=== PATIENT | male | born 1975 | race Caucasian/White ===

== ENCOUNTER 2021-03-28 11:29 | Inpatient (IN) ==
--- NOTE | 2021-03-28 14:29 | Emergency Department Note ---
HPI General Chief complaint: Extremity Injury, Upper Stated complaint: right shoulder pain, ulcer on left foot Time Seen by Provider: 03/28/21 11:47 Source: patient Mode of arrival: ambulatory Limitations: no limitations History of Present Illness HPI Narrative: Mr. Romano is an unfortunate 45-year-old poorly controlled diabetic patient with deep ulceration of the left heel and acute left shoulder pain without injury. He was seen at the [facility] yesterday where they had concerns for septic OA of the shoulder and osteomyelitis of the left foot. Unfortunately, he eloped from their ER and did not receive further work-up. He presents today complaining of the same severe left shoulder pain. Pain is aggravated by movement. The patient does report a history of gout, but denies a history of gout in his shoul bebo. Related Data Home Medications Medication Instructions Recorded Confirmed clobetasol 0.05 % topical ointment 1 applic TOPICAL BID 01/12/19 03/21/21 colchicine 0.6 mg tablet (Colcrys) 0.6 mg PO QDAY 01/12/19 03/21/21 omeprazole 20 mg tablet,delayed 20 mg PO QDAY 01/12/19 03/21/21 release thiamine HCl (vitamin B1) 100 mg 100 mg PO QDAY 01/12/19 03/21/21 tablet Previous Rx's Medication Instructions Recorded allopurinol 100 mg tablet 200 mg PO QDAY #60 tab 08/05/20 metformin 500 mg tablet,extended See Rx Instructions .ROUTE 10/31/20 release 24 hr .COMPLEX #60 tablet hydrochlorothiazide 25 mg tablet See Rx Instructions .ROUTE 12/27/20 .COMPLEX #90 tab lisinopril 20 mg tablet See Rx Instructions .ROUTE 01/09/21 .COMPLEX #180 tab zolpidem 10 mg tablet (Ambien) 10 mg PO QHS PRN #90 tab 02/21/21 buprenorphine HCl 8 mg sublingual 8 mg SUBLINGUAL QID #120 tab 03/06/21 tablet etodolac 400 mg tablet 400 mg PO BID 14 Days #28 tab 03/21/21 methocarbamol 750 mg tablet 750 mg PO QID 14 Days #56 tab 03/21/21 Allergies Allergy/AdvReac Type Severity Reaction Status Date / Time No Known Drug Allergies Allergy Verified 03/28/21 11:33 Review of Systems ROS ROS Narrative: Narrative: All systems ED: reviewed and negative except as stated. PFSH Narrative Patient History Narrative: Narrative: Medical/Surgical/Family History All Active Problems (Updated 03/28/21 @ 17:51 by Debi Ochoa PA-C) Diabetic foot ulcer (Acute) Osteomyelitis (Acute) Right shoulder pain (Acute) Insomnia (Chronic) Nausea & vomiting (Acute) Diabetes mellitus (Chronic) Fatigue (Acute) Staph infection (Acute) Cellulitis (Acute) Encounter for monitoring of patient compliance in drug treatment program (Acute) DM w/o complication type II (Acute) Hypertension (Chronic) Gout (Chronic) Opioid dependence in remission (Chronic) Family history unremarkable (Acute) Medical History (Updated 03/28/21 @ 17:51 by Debi Ochoa PA-C) Anxiety Chronic gout Dental caries, unspecified Diabetes mellitus Family history unremarkable Fatigue Hypertension Insomnia Low back pain syndrome Nausea & vomiting Opioid dependence, in remission Opioid dependence, uncomplicated Psoriatic arthritis Situational anxiety Staph infection Type 2 diabetes mellitus without complications Surgical History No history of previous surgery Family History Other No pertinent family history Social History Smoking Status: Current some day smoker Alcohol Intake Frequency: does not drink Substance Use: does not use Exam Narrative Narrative: General: AOx3, NAD, nontoxic appearing. Pleasant and conversant. HEENT: PERRL, EOMI, normocephalic. Moist mucous membranes. Normal facies and normal dentition. Chest: Symmetric Respiratory: Lungs clear to auscultation bilaterally. No respiratory distress. Unlabored breathing. Heart: Regular rate and rhythm, no murmurs/clicks/rubs. Abdomen: Non-tender, Non distended Extremities: Warm and well perfused. No edema. DP 2+ bilaterally. No venous stasis. Left shoulder with painful active range of motion. He is exquisitely tender to palpation of the left AC joint and top shoulder. No pain to palpation through the posterior anterior glenohumeral joint. The AC joint is warm to palpation. No obvious swelling, ecchymosis, or deformities. Left foot with deep ulceration of the calcaneus. This is probed and the bone is palpated. No drainage. No necrosis. Patient has decreased sensation at baseline due to his neuropathy. Neuro: No focal deficits. Cranial nerves II-XII grossly normal. Skin: Warm dry, no rashes or lesions, no cyanosis. Psych: Normal mood and affect Heme/Lymph: No abnormal bruising General Limitations: no limitations Course Vital Signs Vital signs: Vital Signs Temperature 97.5 F 03/28/21 11:30 Pulse Rate 105 H 03/28/21 11:30 Respiratory Rate 18 03/28/21 11:30 Blood Pressure 128/78 03/28/21 11:30 Pulse Oximetry (%) 96 03/28/21 11:30 Temperature 97.5 F 03/28/21 11:30 Pulse Rate 105 H 03/28/21 16:32 Respiratory Rate 18 03/28/21 11:30 Blood Pressure 120/64 03/28/21 16:32 Pulse Oximetry (%) 96 03/28/21 16:32 MDM MDM Narrative Medical decision making narrative: Diabetic foot ulcer Foot osteomyelitis Left shoulder pain Patient will need admission and debridement of his foot ulceration. I have spoken with Dr. Shawn peña who will see the patient in the morning. In the meantime I have signed the patient out to Dr. Aguirre who has graciously agreed to admit the patient. Foot wound cultures and blood cultures are currently pendi ng. CT of the shoulder is pending to query for joint effusion. If fluid is visualized then the plan will be for aspiration of the shoulder and will send fluid for culture and cell count to rule out septic osteoarthritis versus gout. We will hold off on antibiotics at this time as the patient is not septic and stable and we will wait for surgery to obtain cultures. Lab Data Result diagrams: 03/28/21 17:51 03/28/21 14:21 Labs: Lab Results 03/28/21 03/28/21 03/28/21 Range/Units 14:21 14:21 17:51 WBC 9.0 8.5 (4.5-11.0) K/mcL RBC 4.46 L 4.13 L (4.63-6.08) M/mcL Hgb 11.7 L 11.1 L (13.7-17.5) g/dL Hct 35.9 L 33.1 L (40.1-51.0) % POC Hct MCV 80.5 80.1 (80.0-100.0) fL MCH 26.2 26.9 (26.0-34.0) pg MCHC 32.6 33.5 (31.0-36.0) g/dL RDW 12.7 12.6 (11.5-14.5) % Plt Count 291 276 (140-440) K/mcL MPV 9.5 9.4 (7.4-10.4) fL Seg Neutrophils % 69 (38-78) % Lymphocytes % 23 (15-49) % Monocytes % (Manual) 7 (1-12) % Eosinophils % (Manual) 1 (0-7) % Platelet Estimate Normal (Normal) RBC Morphology Normal (Normal) POC Sodium Sodium 133 (133-145) mmol/L POC Potassium Potassium 3.5 (3.3-5.1) mmol/L POC Chloride Chloride 92 L (96-108) mmol/L Carbon Dioxide 25 (22-30) mmol/L POC Total CO2 Anion Gap 16.0 (8.0-16.0) POC BUN BUN 11 (6-20) mg/dL Creatinine 0.7 (0.7-1.2) mg/dL POC Creatinine GFR Calculation 113 Glucose 167 H (70-105) mg/dL POC Glucose Calcium 9.3 (8.6-10.4) mg/dL POC WB Ioniz Calcium Total Bilirubin 0.5 (0.1-1.0) mg/dL AST 8 (<40) U/L ALT 8 (<40) U/L Alkaline Phosphatase 99 (39-117) U/L Total Protein 7.8 (5.9-8.4) gm/dL Albumin 3.6 (3.2-5.2) gm/dL Globulin 4.2 H (2.2-3.7) gm/dL Albumin/Globulin Ratio 0.9 L (1.0-2.3) 03/28/21 Range/Units 17:51 WBC (4.5-11.0) K/mcL RBC (4.63-6.08) M/mcL Hgb (13.7-17.5) g/dL Hct (40.1-51.0) % POC Hct TNP MCV (80.0-100.0) fL MCH (26.0-34.0) pg MCHC (31.0-36.0) g/dL RDW (11.5-14.5) % Plt Count (140-440) K/mcL MPV (7.4-10.4) fL Seg Neutrophils % (38-78) % Lymphocytes % (15-49) % Monocytes % (Manual) (1-12) % Eosinophils % (Manual) (0-7) % Platelet Estimate (Normal) RBC Morphology (Normal) POC Sodium TNP Sodium (133-145) mmol/L POC Potassium TNP Potassium (3.3-5.1) mmol/L POC Chloride TNP Chloride (96-108) mmol/L Carbon Dioxide (22-30) mmol/L POC Total CO2 TNP Anion Gap (8.0-16.0) POC BUN TNP BUN (6-20) mg/dL Creatinine (0.7-1.2) mg/dL POC Creatinine TNP GFR Calculation Glucose (70-105) mg/dL POC Glucose TNP Calcium (8.6-10.4) mg/dL POC WB Ioniz Calcium TNP Total Bilirubin (0.1-1.0) mg/dL AST (<40) U/L ALT (<40) U/L Alkaline Phosphatase (39-117) U/L Total Protein (5.9-8.4) gm/dL Albumin (3.2-5.2) gm/dL Globulin (2.2-3.7) gm/dL Albumin/Globulin Ratio (1.0-2.3) Discharge Plan Patient/Caregiver Discharge Instructions Pt seen by [facility]/PA only: Yes Clinical Impression: Diabetic foot ulcer, Osteomyelitis Patient Disposition: Xfer As Inpt ([facility]) Condition: Fair Follow up with: Leonid Page MD [Primary Care Provider] - Prescriptions: No Action thiamine HCl (vitamin B1) 100 mg tablet 100 mg PO QDAY 0RF omeprazole 20 mg tablet,delayed release (DR/EC) 20 mg PO QDAY 0RF colchicine [Colcrys] 0.6 mg tablet 0.6 mg PO QDAY 0RF Hold Instructions: Doctor's Order clobetasol 0.05 % ointment 1 applic TOPICAL BID 0RF allopurinol 100 mg tablet 200 mg PO QDAY Qty: 60 12RF metformin 500 mg tablet extended release 24 hr See Rx Instructions .ROUTE .COMPLEX Qty: 60 6RF Dose Instruction: TAKE TWO TABLETS BY MOUTH IN THE EVENING. Rx Instructions: TAKE TWO TABLETS BY MOUTH IN THE EVENING. hydrochlorothiazide 25 mg tablet See Rx Instructions .ROUTE .COMPLEX Qty: 90 0RF Dose Instruction: TAKE ONE TABLET BY MOUTH EVERY DAY Rx Instructions: TAKE ONE TABLET BY MOUTH EVERY DAY lisinopril 20 mg tablet See Rx Instructions .ROUTE .COMPLEX Qty: 180 0RF Dose Instruction: TAKE ONE TABLET BY MOUTH TWICE DAILY Rx Instructions: TAKE ONE TABLET BY MOUTH TWICE DAILY zolpidem [Ambien] 10 mg tablet 10 mg PO QHS PRN (Reason: insomnia) Qty: 90 5RF etodolac 400 mg tablet 400 mg PO BID 14 Days Qty: 28 0RF methocarbamol 750 mg tablet 750 mg PO QID 14 Days Qty: 56 0RF buprenorphine HCl 8 mg tablet, sublingual 8 mg SUBLINGUAL QID Qty: 120 0RF
[2021-03-28 15:02] LABS: Hematocrit 35.9 % (40.1-51.0); Hemoglobin 11.7 g/dL (13.7-17.5); Mean Cell Volume 80.5 fL (80.0-100.0); Mean Corpuscular HGB Conc 32.6 g/dL (31.0-36.0); Mean Platelet Volume 9.5 fL (7.4-10.4); Platelet Count 291 K/mcL (140-440); RBC 4.46 M/mcL (4.63-6.08); Red Cell Distribution Width 12.7 % (11.5-14.5)
[2021-03-28 15:22] LABS: ALT/SGPT 8 U/L (<40); AST/SGOT 8 U/L (<40); Albumin 3.6 gm/dL (3.2-5.2); Albumin/Globulin Ratio 0.9 (1.0-2.3); Alkaline Phosphatase 99 U/L (39-117); Bilirubin,Total 0.5 mg/dL (0.1-1.0); Blood Urea Nitrogen 11 mg/dL (6-20); Calcium 9.3 mg/dL (8.6-10.4); Carbon Dioxide 25 mmol/L (22-30); Chloride 92 mmol/L (96-108); Globulin 4.2 gm/dL (2.2-3.7); Glomerular Filtration Rate 113; Glucose 167 mg/dL (70-105)
[2021-03-28 15:47] LABS: Eosinophils % (Manual) 1 % (0-7); Lymphocytes % 23 % (15-49); Monocytes % (Manual) 7 % (1-12); Platelet Estimate NORMAL (Normal); RBC Morphology NORMAL (Normal); Segmented Neutrophils % 69 % (38-78)
--- NOTE | 2021-03-28 16:11 | Magnetic Resonance Report ---
CLINICAL INFORMATION: Diabetic foot ulcer in the pineal region evaluate for osteomyelitis COMPARISON: None. TECHNIQUE: Sagittal T1 proton density, axial T1 and T2 proton density and coronal proton density images were obtained through the left foot. FINDINGS: A 2 cm broad mouth plantar cutaneous ulcer, over the calcaneus region with a very large amount of cellulitis extending throughout the plantar fascial and calcaneus all the way to the calcaneal cortex. The cortex is disrupted and there is a 7 x 5 cm region of increased signal involving the entire posterior two thirds of the calcaneus compatible with complicating osteomyelitis. No definite evidence of Justice's abscess or sequestrum. The marrow signal throughout the remainder of the foot is unremarkable. The joint spaces are normal with alignment without arthritic change. IMPRESSION: Increased signal throughout the posterior two thirds of the calcaneus compatible with osteomyelitis. Cutaneous ulcer over the posterior calcaneus with cellulitis in the intervening plantar fascia. Interpreted and Authenticated by: Martínez Bowman 03/28/21
[2021-03-28] MEDS ORDERED: LORazepam 1 MG TABLET PO ONE (17:01)
--- NOTE | 2021-03-28 18:22 | Internal Med History&Physical ---
HPI History of Present Illness Patient information: Note initiated : 03/28/21 at 6:17 pm Service Date, if different from initiated Date: [] Patient: Sohail Romano 45 y/o M admitted on for right shoulder pain, ulcer on left foot. Chief Complaint: [] History of present illness: Sohail Romano is a 45-year-old male with a history of type 2 diabetes mellitus, hypertension, gout, GERD, insomnia, opioid use disorder on sublingual buprenorphine who presented to the emergency department for shoulder pain that began spontaneously without recent trauma as well as a left heel wound. The patient has had this wound for quite some time and recently it has begun to drain purulent material and produce a foul odor. The shoulder pain is more acute, he says that pain is aggravated most by movement to the point that he cannot move the shoulder without severe pain. In the emergency department, the patient had routine blood work which did not show any leukocytosis he does have a normocytic anemia that is new, chemistry panel was fairly unremarkable. An MRI of the patient's left foot was done without contrast, that showed increased signal throughout the posterior two thirds of the calcaneus compatible with osteomyelitis. There is a cutaneous ulcer of the posterior calcaneus with cellulitis in the intervening plantar fascia. Hospital medicine was asked to admit the patient for further management. Review of systems constitutional: no fever, fatigue, or weight loss Eyes: no vision changes or pain Cardiovascular: no chest pain, no palpitations Respiratory: no cough or dyspnea Gastrointestinal: no abdominal pain, no nausea, vomiting, or diarrhea Genitourinary: no dysuria or difficulty voiding Musculoskeletal: Positive for right shoulder pain. Integumentary: Positive for chronic wound on left heel. Neurological: no focal weakness or numbness Psychiatric: no anxiety or depression Physical exam Head: Atraumatic, normal inspection. Eyes: normal appearance, no scleral icterus. Neck: full ROM Respiratory: no respiratory distress. Cardiovascular: normal rate and rhythm, S1, S2. GI/Abdominal: Obesely distended abdomen, soft, nontender, no guarding. Extremities: Exquisite tenderness over the right acromioclavicular joint, left foot ulcer draining foul-smelling purulent fluid Neurological: CN II-XII intact, intact motor, bilateral lower extremity sensory deficits consistent with diabetic neuropathy. Psychiatric: normal mood. Skin: Warmth and redness surrounding left foot ulcer. PFSH PFSH All Active Problems (Updated 03/28/21 @ 17:51 by Debi Ochoa PA-C) Diabetic foot ulcer (Acute) Osteomyelitis (Acute) Right shoulder pain (Acute) Insomnia (Chronic) Nausea & vomiting (Acute) Diabetes mellitus (Chronic) Fatigue (Acute) Staph infection (Acute) Cellulitis (Acute) Encounter for monitoring of patient compliance in drug treatment program (Acute) DM w/o complication type II (Acute) Hypertension (Chronic) Gout (Chronic) Opioid dependence in remission (Chronic) Family history unremarkable (Acute) Medical History (Updated 03/28/21 @ 17:51 by Debi Ochoa PA-C) Anxiety Chronic gout Dental caries, unspecified Diabetes mellitus Family history unremarkable Fatigue Hypertension Insomnia Low back pain syndrome Nausea & vomiting Opioid dependence, in remission Opioid dependence, uncomplicated Psoriatic arthritis Situational anxiety Staph infection Type 2 diabetes mellitus without complications Surgical History No history of previous surgery Family History Other No pertinent family history Social History marital status: single occupational status: 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 physical activity: walking frequency: 3-4 times per week counseling given: provider counseling alcohol intake frequency: does not drink substance use type: does not use seatbelt use: sometimes MEDS/ALLERGIES Home Medications and Allergies Home Medications Medication Instructions Recorded Confirmed Type clobetasol 0.05 % topical ointment 1 applic TOPICAL BID 01/12/19 03/21/21 History colchicine 0.6 mg tablet (Colcrys) 0.6 mg PO QDAY 01/12/19 03/21/21 History omeprazole 20 mg tablet,delayed 20 mg PO QDAY 01/12/19 03/21/21 History release thiamine HCl (vitamin B1) 100 mg 100 mg PO QDAY 01/12/19 03/21/21 History tablet allopurinol 100 mg tablet 200 mg PO QDAY #60 tab 08/05/20 03/21/21 Rx metformin 500 mg tablet,extended See Rx Instructions .ROUTE 10/31/20 03/21/21 Rx release 24 hr .COMPLEX #60 tablet hydrochlorothiazide 25 mg tablet See Rx Instructions .ROUTE 12/27/20 03/21/21 Rx .COMPLEX #90 tab lisinopril 20 mg tablet See Rx Instructions .ROUTE 01/09/21 03/21/21 Rx .COMPLEX #180 tab zolpidem 10 mg tablet (Ambien) 10 mg PO QHS PRN #90 tab 02/21/21 03/21/21 Rx buprenorphine HCl 8 mg sublingual 8 mg SUBLINGUAL QID #120 tab 03/06/21 03/21/21 Rx tablet etodolac 400 mg tablet 400 mg PO BID 14 Days #28 tab 03/21/21 03/21/21 Rx methocarbamol 750 mg tablet 750 mg PO QID 14 Days #56 tab 03/21/21 03/21/21 Rx Allergies Allergy/AdvReac Type Severity Reaction Status Date / Time No Known Drug Allergies Allergy Verified 03/28/21 11:33 EXAM Constitutional Vitals: Temp Pulse Resp BP Pulse Ox 97.5 F 105 H 18 120/64 96 03/28/21 11:30 03/28/21 16:32 03/28/21 11:30 03/28/21 16:32 03/28/21 16:32 DATA Data Completed and Pending Labs: Labs from last 24 hours 03/28/21 03/28/21 03/28/21 17:51 17:51 14:21 WBC Pending 9.0 RBC Pending 4.46 L Hgb Pending 11.7 L Hct Pending 35.9 L POC Hct TNP MCV Pending 80.5 MCH Pending 26.2 MCHC Pending 32.6 RDW Pending 12.7 Plt Count Pending 291 MPV Pending 9.5 Seg Neutrophils % 69 Lymphocytes % 23 Monocytes % (Manual) 7 Eosinophils % (Manual) 1 Platelet Estimate Pending Normal RBC Morphology Pending Normal POC Sodium TNP Sodium POC Potassium TNP Potassium POC Chloride TNP Chloride Carbon Dioxide POC Total CO2 TNP Anion Gap POC BUN TNP BUN Creatinine POC Creatinine TNP GFR Calculation Glucose POC Glucose TNP Calcium POC WB Ioniz Calcium TNP Total Bilirubin AST ALT Alkaline Phosphatase C-Reactive Protein Pending Total Protein Albumin Globulin Albumin/Globulin Ratio 03/28/21 14:21 WBC RBC Hgb Hct POC Hct MCV MCH MCHC RDW Plt Count MPV Seg Neutrophils % Lymphocytes % Monocytes % (Manual) Eosinophils % (Manual) Platelet Estimate RBC Morphology POC Sodium Sodium 133 POC Potassium Potassium 3.5 POC Chloride Chloride 92 L Carbon Dioxide 25 POC Total CO2 Anion Gap 16.0 POC BUN BUN 11 Creatinine 0.7 POC Creatinine GFR Calculation 113 Glucose 167 H POC Glucose Calcium 9.3 POC WB Ioniz Calcium Total Bilirubin 0.5 AST 8 ALT 8 Alkaline Phosphatase 99 C-Reactive Protein Total Protein 7.8 Albumin 3.6 Globulin 4.2 H Albumin/Globulin Ratio 0.9 L A/P Narrative A/P Narrative: Assessment: 45-year-old male with a history of type 2 diabetes mellitus complicated by peripheral neuropathy, hypertension, gout, GERD, insomnia, opioid use disorder in remission on sublingual buprenorphine who presented to the emergency department for right shoulder pain and a chronic left heel ulcer that has been worsening recently and now appears to be infected. MRI of the left foot showed findings concerning for osteomyelitic of the calcaneus. #Diabetic foot ulcer complicated by cellulitis #Probable osteomyelitis of left calcaneus #Right shoulder pain of uncertain etiology -Differential includes infectious, crystal arthropathy, inflammatory, traumatic injury. #Type 2 diabetes mellitus complicated by peripheral neuropathy #Essential hypertension #Gout #GERD #Opioid use disorder on Suboxone #Obesity Plan -Plan is to admit for surgical evaluation. -Hold off on antibiotic for now pending surgery evaluation. -Would be best if calcaneus bone cultures could be obtained. -Check CRP. -Follow-up blood cultures. -Follow CT shoulder report, drain fluid if present. -Consider MRI of right shoulder if CT scan is nondiagnostic. -Consider discussing management with ID at [facility]. -Correction Humalog SSI for now, holding home metformin. -Home medication reconciliation then resume essential meds. -Continue buprenorphine 8 mg 4 times daily throughout hospitalization. -Analgesics as needed. -NPO at midnight. -DVT prophylaxis: Holding for planned surgery tomorrow. -CODE STATUS: Full -Disposition: Probably home after surgical evaluation, probablyon long-term antibiotics for osteomyelitis depending on hospital work-up. Time Spent With Patient Time: Total time spent is greater than 50% in coordination of care (as documented) at patient's floor/unit and/or counseling patient:
--- NOTE | 2021-03-28 18:31 | Cat Scan Report ---
CLINICAL INFORMATION: Right shoulder pain. Evaluate for effusion COMPARISON: None. TECHNIQUE: 0.625 mm helical slices were obtained through the right shoulder Following reconstruction, 2.5 mm axial sagittal and coronal reformations were processed. The exam was reviewed at bone and soft tissue windows . The exam was performed using radiation dose optimization techniques including, but not limited to, automated exposure control, adjustment of the mA and/or kV according to patient size and use of iterative reconstruction technique. FINDINGS: Glenohumeral joint is normal with alignment. There is no effusion.. Moderate degenerative change is seen in the acromioclavicular joint. Joint space narrowing and subchondral cyst formation. No other osseous abnormality. Particular muscle and fascial planes are normal. Right lung is well-expanded and clear. IMPRESSION: No evidence of glenohumeral effusion. The joint is unremarkable Moderate acromioclavicular degeneration Interpreted and Authenticated by: Martínez Bowman 03/28/21
[2021-03-28 18:42] LABS: Hematocrit 33.1 % (40.1-51.0); Hemoglobin 11.1 g/dL (13.7-17.5); Mean Cell Volume 80.1 fL (80.0-100.0); Mean Corpuscular HGB Conc 33.5 g/dL (31.0-36.0); Mean Platelet Volume 9.4 fL (7.4-10.4); Platelet Count 276 K/mcL (140-440); RBC 4.13 M/mcL (4.63-6.08); Red Cell Distribution Width 12.6 % (11.5-14.5); WBC 8.5 K/mcL (4.5-11.0)
[2021-03-28] MEDS ORDERED: DEXTROSE 31 GM ORAL.SUSP PO PRN (19:18)
[2021-03-28] MEDS ORDERED: DEXTROSE 50% 50 ML VIAL IV PRN (19:18)
[2021-03-28] MEDS ORDERED: ONDANSETRON 4 MG/2 ML VIAL IV PRN (19:18)
[2021-03-28] MEDS ORDERED: ACETAMINOPHEN 325 MG TABLET PO PRN (19:18)
[2021-03-28 19:22] LABS: Basophils % (Manual) 3 % (0-2); Eosinophils % (Manual) 1 % (0-7); Lymphocytes % 22 % (15-49); Monocytes % (Manual) 2 % (1-12); Platelet Estimate NORMAL (Normal); RBC Morphology NORMAL (Normal); Segmented Neutrophils % 72 % (38-78)
[2021-03-28] MEDS ORDERED: BUPRENORPHINE HCL 8 MG TAB.SUBL SL SCH (21:00)
[2021-03-28] MEDS: DOCUSATE SODIUM 100 MG CAPSULE PO SCH (21:46)
[2021-03-28] MEDS: SENNOSIDES 1 TABLET PO SCH (21:46)
[2021-03-28] MEDS: 0.9 % SODIUM CHLORIDE 10 ML SYRINGE IV SCH (21:51)
[2021-03-28] MEDS: INSULIN LISPRO 1 UNIT/0.01 ML UNIT SQ SCH (22:02)
[2021-03-28] MEDS: ZOLPIDEM 5 MG TABLET PO PRN (22:16)
[2021-03-28] MEDS: HYDROcodone/APAP 5/325MG TABLET PO PRN (22:23)
[2021-03-29 06:39] LABS: Hematocrit 32.8 % (40.1-51.0); Hemoglobin 10.6 g/dL (13.7-17.5); Mean Cell Volume 80.8 fL (80.0-100.0); Mean Corpuscular HGB Conc 32.3 g/dL (31.0-36.0); Mean Platelet Volume 9.4 fL (7.4-10.4); Platelet Count 263 K/mcL (140-440); RBC 4.06 M/mcL (4.63-6.08); Red Cell Distribution Width 12.8 % (11.5-14.5); WBC 6.8 K/mcL (4.5-11.0)
[2021-03-29] MEDS: 0.9 % SODIUM CHLORIDE 10 ML SYRINGE IV SCH ×3 (06:42→21:42)
[2021-03-29 06:47] LABS: Blood Urea Nitrogen 10 mg/dL (6-20); Calcium 8.9 mg/dL (8.6-10.4); Carbon Dioxide 28 mmol/L (22-30); Chloride 91 mmol/L (96-108); Glomerular Filtration Rate 113; Glucose 180 mg/dL (70-105)
[2021-03-29 07:09] LABS: Band Neutrophils % 2 % (0-10); Eosinophils % (Manual) 3 % (0-7); Lymphocytes % 17 % (15-49); Monocytes % (Manual) 9 % (1-12); Platelet Estimate NORMAL (Normal); RBC Morphology NORMAL (Normal); Segmented Neutrophils % 69 % (38-78)
[2021-03-29] MEDS: INSULIN LISPRO 1 UNIT/0.01 ML UNIT SQ SCH ×4 (07:38→20:54)
--- NOTE | 2021-03-29 08:39 | General Surgery Consult Note ---
HPI Data of Consult Consult date: 03/28/21 Requesting physician: Adam Aguirer Primary Care Provider: Leonid Page MD Family Provider: 45/M Admitted via ER last evening. I spoke with Dr. Aguirre about this gentleman l ast night. I saw him this morning along with Chloé BLACKWELL, on Med surg Floor Room 133. Patient admitted with acute on chronic SEPSIS due to CSSSI, osteomyelitis of calcaneum AND Left posterior heel and painful RIGHT shoulder. He is an everyday smoker and has IDDM with peripheral neuropathy. He has OPIOID dependence. Consult Narrative Patient Information: Note initiated : 03/29/21 at 8:16 am Service Date, if different from initiated Date: [] Patient: Sohail Romano 45 y/o M admitted on 03/28/21 for right shoulder pain, ulcer on left foot. Chief Complaint: [] Chief complaint: Swelling, Drainage and foul odor from chronic LEFT heel DFU Stage 4. Reason for consult: Debridement of LE foot wound and tissue for c/s and biopsies at this time. cc:: CC: Adam Aguirre MD Musculoskeletal Musculoskeletal: Present joint swelling (RIGHT joint tenderness ACJ shoulder region and prior h/o gout) Integumentary Integumentary: Present as per HPI, wounds and other Additional comments: Diabetic foot ulcer, foul drainage and recent RIGHT shoulder pain with restricted ROM. DENIES h/o cough, SOB, F/C/SOB, CP, N/V/D of focal GI / or neurological complaints. Ambulates with FWB on LEFT foot. Neurological Neurological: Present other Additional comments: Diabetes with peripheral neuropathy Endocrine Endocrine: Present as per HPI and other Additional comments: Long standing h/o IDDM. PFSH PFSH All Active Problems (Updated 03/28/21 @ 17:51 by Debi Ochoa PA-C) Diabetic foot ulcer (Acute) Osteomyelitis (Acute) Right shoulder pain (Acute) Insomnia (Chronic) Nausea & vomiting (Acute) Diabetes mellitus (Chronic) Fatigue (Acute) Staph infection (Acute) Cellulitis (Acute) Encounter for monitoring of patient compliance in drug treatment program (Acute) DM w/o complication type II (Acute) Hypertension (Chronic) Gout (Chronic) Opioid dependence in remission (Chronic) Family history unremarkable (Acute) Medical History (Updated 03/28/21 @ 17:51 by Debi Ochoa PA-C) Anxiety Chronic gout Dental caries, unspecified Diabetes mellitus Family history unremarkable Fatigue Hypertension Insomnia Low back pain syndrome Nausea & vomiting Opioid dependence, in remission Opioid dependence, uncomplicated Psoriatic arthritis Situational anxiety Staph infection Type 2 diabetes mellitus without complications Surgical History No history of previous surgery Family History Other No pertinent family history Social History marital status: single occupational status: 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[employer], 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 [place] 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 physical activity: walking frequency: 3-4 times per week counseling given: provider counseling alcohol intake frequency: does not drink substance use type: does not use seatbelt use: sometimes MEDS/ALLERGIES Home Medications and Allergies Home Medications Medication Instructions Recorded Confirmed Type colchicine 0.6 mg tablet (Colcrys) 0.6 mg PO QDAY PRN 01/12/19 03/28/21 History omeprazole 20 mg tablet,delayed 20 mg PO 1800 01/12/19 03/28/21 History release buprenorphine HCl 8 mg sublingual 8 mg SUBLINGUAL QID #120 tab 03/06/21 03/28/21 Rx tablet etodolac 400 mg tablet 400 mg PO BID 14 Days #28 tab 03/21/21 03/28/21 Rx hydrochlorothiazide 25 mg tablet 25 mg PO DAILY 03/28/21 03/28/21 History lisinopril 20 mg tablet 20 mg PO BID 03/28/21 03/28/21 History metformin 500 mg tablet,extended 1,000 mg PO ACS 03/28/21 03/28/21 History release 24 hr methocarbamol 750 mg tablet 750 mg PO QID 03/28/21 03/28/21 History zolpidem 10 mg tablet (Ambien) 10 mg PO QHS 03/28/21 03/28/21 History Allergies Allergy/AdvReac Type Severity Reaction Status Date / Time No Known Drug Allergies Allergy Verified 03/28/21 11:33 Physical Examination Vital Signs Vital signs: Temp Pulse Resp BP Pulse Ox 98.0 F 85 16 110/70 94 03/29/21 04:17 03/29/21 04:17 03/29/21 04:17 03/29/21 04:17 03/29/21 04:17 General physical appearance General physical exam: well developed, well nourished, no distress, no pain and obese Eyes Eye exam: PERRL and normal ocular movement ENT ENT exam: normal pinna, normal mucosa and no congestion Head Head exam IM: Present atraumatic and normocephalic Neck Neck exam: no masses, no lymphadenopathy and no venous distension Cardiovascular Cardiovascular exam IM: Present normal rate and rhythm Peripheral pulses: 3+/4+: dorsalis pedis (R) and posterior tibialis (L) Respiratory Respiratory exam: normal respiratory effort and clear to auscultation Abdomen Abdomen: Present soft, non tender and bowel sounds Integumentary Integumentary: Present other (DFU LEFT posterior and medial heel. Probes to bone. Necrotic tissue with foul drainage.) Neurologic Neurologic: Present other (Diabetes with peripheral neuropathy) Musculoskeletal Musculoskeletal: Present other (LEFT posterior heel DFU as above. Plantar flexion and extension is WNL, Pedal pulses are palpable.) Psychiatric Psychiatric: Present oriented to time, oriented to person, oriented to place, speech is normal and memory intact Results Labs Result diagrams: 03/29/21 05:19 03/29/21 05:19 Labs: Abnormal lab results 03/28/21 03/28/21 03/28/21 Range/Units 14:21 14:21 17:51 RBC 4.46 L 4.13 L (4.63-6.08) M/mcL Hgb 11.7 L 11.1 L (13.7-17.5) g/dL Hct 35.9 L 33.1 L (40.1-51.0) % Basophils % (Manual) 3 H (0-2) % Sodium (133-145) mmol/L Chloride 92 L (96-108) mmol/L Glucose 167 H (70-105) mg/dL C-Reactive Protein (0.03-0.80) mg/dL Globulin 4.2 H (2.2-3.7) gm/dL Albumin/Globulin Ratio 0.9 L (1.0-2.3) 03/28/21 03/29/21 03/29/21 Range/Units 17:51 05:19 05:19 RBC 4.06 L (4.63-6.08) M/mcL Hgb 10.6 L (13.7-17.5) g/dL Hct 32.8 L (40.1-51.0) % Basophils % (Manual) (0-2) % Sodium 131 L (133-145) mmol/L Chloride 91 L (96-108) mmol/L Glucose 180 H (70-105) mg/dL C-Reactive Protein 9.10 H (0.03-0.80) mg/dL Globulin (2.2-3.7) gm/dL Albumin/Globulin Ratio (1.0-2.3) Diabetes panel 03/28/21 03/29/21 Range/Units 14:21 05:19 Sodium 133 131 L (133-145) mmol/L Potassium 3.5 3.6 (3.3-5.1) mmol/L Chloride 92 L 91 L (96-108) mmol/L Carbon Dioxide 25 28 (22-30) mmol/L BUN 11 10 (6-20) mg/dL Creatinine 0.7 0.7 (0.7-1.2) mg/dL Glucose 167 H 180 H (70-105) mg/dL Calcium 9.3 8.9 (8.6-10.4) mg/dL AST 8 (<40) U/L ALT 8 (<40) U/L Alkaline Phosphatase 99 (39-117) U/L Total Protein 7.8 (5.9-8.4) gm/dL Albumin 3.6 (3.2-5.2) gm/dL Calcium panel 03/28/21 03/29/21 Range/Units 14:21 05:19 Calcium 9.3 8.9 (8.6-10.4) mg/dL Albumin 3.6 (3.2-5.2) gm/dL Pituitary panel 03/28/21 03/29/21 Range/Units 14:21 05:19 Sodium 133 131 L (133-145) mmol/L Potassium 3.5 3.6 (3.3-5.1) mmol/L Chloride 92 L 91 L (96-108) mmol/L Carbon Dioxide 25 28 (22-30) mmol/L BUN 11 10 (6-20) mg/dL Creatinine 0.7 0.7 (0.7-1.2) mg/dL Glucose 167 H 180 H (70-105) mg/dL Calcium 9.3 8.9 (8.6-10.4) mg/dL Adrenal panel 03/28/21 03/29/21 Range/Units 14:21 05:19 Sodium 133 131 L (133-145) mmol/L Potassium 3.5 3.6 (3.3-5.1) mmol/L Chloride 92 L 91 L (96-108) mmol/L Carbon Dioxide 25 28 (22-30) mmol/L BUN 11 10 (6-20) mg/dL Creatinine 0.7 0.7 (0.7-1.2) mg/dL Glucose 167 H 180 H (70-105) mg/dL Calcium 9.3 8.9 (8.6-10.4) mg/dL Total Bilirubin 0.5 (0.1-1.0) mg/dL AST 8 (<40) U/L ALT 8 (<40) U/L Alkaline Phosphatase 99 (39-117) U/L Total Protein 7.8 (5.9-8.4) gm/dL Albumin 3.6 (3.2-5.2) gm/dL All other labs normal. Imaging Chest x-ray: pending EKG: pending Additional studies: Patient needs OR surgical debridement of LEFT foot and heel abscess and wound. Needs pre op CXR and EKG. Further treatment and antibiotics along with ongoing wound care as appropriate. A/P Narrative A/P Narrative: Assessment: Acute on Chronic Sepsis CSSSI / OSTEO left HEEL IDDM Peripheral neuropathy Gout GERD Insomnia OPIOID dependence Nicotine dependence Morbid obesity Plan: Pre Op CXR and EKG For OR debridement, tissue c/s and bone biopsy OR contacted. Had a detailed discussion with patient. Different case scenarios discussed. Need for life style changes emphasized. SMOKING cessation and tobacco or substitute prohibited. Will recommend consult by prosthodontist/educator. Time Spent With Patient Time: Total time spent is greater than 50% in coordination of care (as documented) at patient's floor/unit and/or counseling patient: Total time spent with greater than 50% in coordination of care (as documented) at patient's floor/unit and/or counseling patient:: Greater than 35 minutes
[2021-03-29] MEDS: DOCUSATE SODIUM 100 MG CAPSULE PO SCH ×2 (08:50→20:34)
[2021-03-29] MEDS: BUPRENORPHINE 8MG TAB SL SCH ×4 (08:50→20:34)
[2021-03-29] MEDS ORDERED: SCOPOLAMINE 1 PATCH PATCH TOPICAL PRN (10:35)
[2021-03-29] MEDS ORDERED: VANCOMYCIN 1,000 MG in 0.9 % SODIUM CHLORIDE 250 ML IV ONE (11:36)
[2021-03-29] MEDS ORDERED: cefTRIAXone 2 GM in DEXTROSE 5% IN WATER 50 ML IV ONE (11:38)
[2021-03-29] MEDS ORDERED: VANCOMYCIN 2,000 MG in 0.9 % SODIUM CHLORIDE 500 ML IV SCH (12:00)
[2021-03-29] MEDS ORDERED: ONDANSETRON 4 MG/2 ML VIAL ONE (12:15)
[2021-03-29] MEDS ORDERED: MIDAZOLAM 2 MG/2 ML VIAL ONE (12:15)
[2021-03-29] MEDS ORDERED: LIDOCAINE HCL/PF 100 MG/5 ML SYRINGE IV ONE (12:15)
[2021-03-29] MEDS ORDERED: fentaNYL 100 MCG/2 ML VIAL IV ONE (12:15)
[2021-03-29] MEDS ORDERED: DEXAMETHASONE 10 MG/ML VIAL ONE (12:15)
[2021-03-29] MEDS ORDERED: KETAMINE 50 MG/ML Syringe (ANEST) IV ONE (12:15)
[2021-03-29] MEDS ORDERED: PROPOFOL 200 MG/20 ML VIAL IV ONE (12:15)
[2021-03-29] MEDS ORDERED: fentaNYL 100 MCG/2 ML VIAL IV PRN (12:47)
[2021-03-29] MEDS ORDERED: IPRATROPIUM/ALBUTEROL 3 ML AMPUL.NEB NEB PRN (12:47)
[2021-03-29] MEDS ORDERED: PROMETHAZINE 25 MG/ML VIAL IM PRN (12:47)
[2021-03-29] MEDS ORDERED: ACETAMINOPHEN 1,000 MG/100 ML BAG IV ONE (12:47)
[2021-03-29] MEDS ORDERED: LACTATED RINGERS 250 ML IV PRN (12:47)
[2021-03-29] MEDS ORDERED: MEPERIDINE 50 MG/ML VIAL IM PRN (12:47)
[2021-03-29] MEDS ORDERED: GENTAMICIN SULFATE 800 MG/20 ML VIAL IR ONE (12:47)
[2021-03-29] MEDS ORDERED: ONDANSETRON 4 MG/2 ML VIAL IV PRN (12:47)
[2021-03-29] MEDS ORDERED: KETOROLAC 30 MG/ML VIAL IV PRN (12:47)
[2021-03-29] MEDS ORDERED: NALOXONE HCL 0.4 MG/ML VIAL IV PRN (12:47)
[2021-03-29] MEDS ORDERED: PROMETHAZINE 25 MG/ML VIAL IV PRN (12:47)
[2021-03-29] MEDS ORDERED: LACTATED RINGERS 1,000 ML IV SCH (13:00)
--- NOTE | 2021-03-29 13:08 | Brief Operative Note ---
Brief Operative Note Date of procedure: 03/29/21 Pre-op diagnosis: SEPSIS. DFU Stage 4 LEFT posterior medial heel Post-op diagnosis: same Procedure: Surgical debridement, Pulse lavage irrigation. Deep tissue for c/s. Calcaneal bone for biopsy. R/O Osteomyelitis Grafts/Implants: No Anesthesia: MAC Findings: Acute on Chronic sepsis: Neuropathic DFU Stage 4 LEFT posterior medial heel. Depth up to bone. Dimensions: 5 x 4 x 2 CM. Undermining at 12 O'Clock 5 CM At 3 O'Clock 3 CM Wound Depth up to bone ( calcaneum ) Complications: none Surgeon: Antoni Chopra Estimated blood loss (cc): 10 Specimens Removed/Pathology: other (Deep soft tissue and clots for c/s. BOBE biopsy to r/o Osteomyelitis.) Condition: stable Disposition: PACU
[2021-03-29] MEDS ORDERED: VANCOMYCIN PER PHARMACY IV SCH (13:20)
[2021-03-29 13:47] LABS: Hemoglobin A1C 7.3 % Hgb (4.0-6.0)
[2021-03-29] MEDS ORDERED: 0.9 % SODIUM CHLORIDE 10 ML SYRINGE IV SCH (14:00)
--- NOTE | 2021-03-29 14:10 | Operative Note ---
DATE OF OPERATION: 03/29/2021 PREOPERATIVE DIAGNOSES: Acute on chronic sepsis, infected diabetic neuropathic foot ulcer, stage 4, left medial posterior heel. POSTOPERATIVE DIAGNOSES: Acute on chronic sepsis, infected diabetic neuropathic foot ulcer, stage 4, left medial posterior heel. PROCEDURE: Surgical debridement, pulse lavage irrigation, deep tissue for culture and sensitivity, and open biopsy of calcaneal bone to rule out osteomyelitis. SURGEON: Antoni Chopra M.D. ANESTHESIA: MAC. TRUCK HOP: Keo Alex CRNA. ESTIMATED BLOOD LOSS: 10 mL. INSTRUMENT COUNTS: Count of swabs, instruments, and needles was reported to be correct. Operation was well tolerated. FINDINGS: This is an infected neuropathic diabetic foot ulcer, presenting with acute on chronic sepsis. The patient has other comorbid medical problems, appropriately managed. Wound dimensions are 5 x 4 x 2 cm. Undermining at 12 o'clock of 5 cm and at 3 o'clock for 3 cm and the wound depth is up to the bone. PROCEDURE IN DETAIL: After obtaining informed consent, patient was taken to the operating room. He was placed supine on the operating table. Time out was called. The site was marked out earlier in the holding area. INDICATIONS: Wide field preparation of the foot, ankle, leg was carried out from the toes up to the knee. First, digital exploration of the wound was carried out. After inserting the finger, I was able to break the loculations and feel the underlying calcaneal bone. This felt firm. Anteriorly, my finger could go all the way for about 5 cm. First, the wound was thoroughly cleaned. Digital breakdown of loculations was performed. Deep tissue was obtained for culture and sensitivity. We used pulse lavage irrigation, 3 liters of normal saline was mixed with 800 mg of gentamicin. Towards completion, the returning fluid was clear. We used a bone biopsy needle inserted through the outer sheath. This was carefully advanced into the calcaneal bone and the sheath was hammered into the bone with a hammer. Later, the needle was advanced through the sheath, which was subsequently taken out and the bone sample was retrieved. Bleeding was easily controlled with pressure and elevation. Once again, the wound was copiously irrigated with normal saline. We have packed this wound open with 2-inch Kerlix gauze soaked in Betadine solution. It was reinforced with 4 x 4 gauze pieces, ABD pad, Kerlix, Coban, and Owen bandages, respectively. Operation was well tolerated. He recovered from the procedure uneventfully and was taken to in stable condition. VD:anil Job ID: [id number] Doc ID: [id number] Antoni Chopra MD MTDD
[2021-03-29] MEDS: PIPERACILLIN SODIUM/TAZOBACTAM 4.5 GM in DEXTROSE 5% IN WATER 50 ML IV SCH ×2 (15:03→22:26)
--- NOTE | 2021-03-29 19:22 | Internal Med Progress Note ---
SUBJECTIVE Subjective Patient information: Note initiated : 03/29/21 at 7:12 pm Service Date, if different from initiated Date: [] Patient: Sohail Romano 45 y/o M admitted on 03/28/21 for right shoulder pain, ulcer on left foot. Chief Complaint: [] Interval history: Sohail Romano is a 45-year-old male with a history of type 2 diabetes mellitus, hypertension, gout, GERD, insomnia, opioid use disorder on sublingual buprenorphine who presented to the emergency department for shoulder pain that began spontaneously without recent trauma as well as a left heel wound. The patient has had this wound for quite some time and recently it has begun to drain purulent material and produce a foul odor. The shoulder pain is more acute, he says that pain is aggravated most by movement to the point that he cannot move the shoulder without severe pain. In the emergency department, the patient had routine blood work which did not show any leukocytosis he does have a normocytic anemia that is new, chemistry panel was fairly unremarkable. An MRI of the patient's left foot was done without contrast, that showed increased signal throughout the posterior two thirds of the calcaneus compatible with osteomyelitis. There is a cutaneous ulcer of the posterior calcaneus with cellulitis in the intervening plantar fascia. Hospital medicine was asked to admit the patient for further management. 03/29 The patient had surgical debridement of the left heel wound and biopsy of the calcaneal bone today. 03/19 blood cultures growing gram positive cocci. Started Vancomycin IV and Zosyn. ECHO ordered. Waiting on culture results. Physical exam Head: Atraumatic, normal inspection. Eyes: normal appearance, no scleral icterus. Neck: full ROM Respiratory: no respiratory distress. Cardiovascular: normal rate and rhythm, S1, S2. GI/Abdominal: Obesely distended abdomen, soft, nontender, no guarding. Extremities: Exquisite tenderness over the right acromioclavicular joint, left foot ulcer draining foul-smelling purulent fluid Neurological: CN II-XII intact, intact motor, bilateral lower extremity sensory deficits consistent with diabetic neuropathy. Psychiatric: normal mood. Skin: Left heel wound covered with clean bandages. Constitutional Vitals: Vital Signs Temp Pulse Resp BP Pulse Ox 98.1 F 97 H 20 113/65 91 03/29/21 15:30 03/29/21 15:30 03/29/21 15:30 03/29/21 15:30 03/29/21 15:30 Period Temp Pulse Resp BP Sys/Bello Pulse Ox Last 24 Hr 98.0 F-98.4 F 80-120 16- 101-145/47-92 90-100 Intake and Output 03/29/21 03/29/21 03/29/21 05:59 13:59 21:59 Intake Total 680 550 100 Output Total 550 850 550 Balance 130 -300 -450 Weight 146.828 kg Intake & Output: Intake & Output 03/29/21 03/29/21 03/29/21 05:59 13:59 21:59 Intake Total 680 550 100 Output Total 550 850 550 Balance 130 -300 -450 Weight 146.828 kg Intake: IV 550 100 Vancomycin 2,000 mg In Sodium 500 Chloride 0.9% 500 ml @ 250 mls/ hr IV PREOP ROSY Rx#:[id number] Rocephin 2 gm In Dextrose 5% in 50 Water 50 ml @ 100 mls/hr IV ONCE ONE Rx#:[id number] Oral 680 Output: Void Amount 550 850 550 Other: Urine Appearance Clear Clear Urine Color Bright Yellow Dark Yellow Urine Odor Normal # Voids 1 OBJ DATA Labs CBC & Chem 7: 03/29/21 05:19 03/29/21 05:19 Labs: Abnormal Lab Results 03/29/21 03/29/21 03/29/21 05:19 05:19 05:19 RBC 4.06 L Hgb 10.6 L Hct 32.8 L Basophils % (Manual) Sodium 131 L Chloride 91 L Glucose 180 H Hemoglobin A1c 7.3 H C-Reactive Protein Globulin Albumin/Globulin Ratio 03/28/21 03/28/21 03/28/21 17:51 17:51 14:21 RBC 4.13 L 4.46 L Hgb 11.1 L 11.7 L Hct 33.1 L 35.9 L Basophils % (Manual) 3 H Sodium Chloride Glucose Hemoglobin A1c C-Reactive Protein 9.10 H Globulin Albumin/Globulin Ratio 03/28/21 14:21 RBC Hgb Hct Basophils % (Manual) Sodium Chloride 92 L Glucose 167 H Hemoglobin A1c C-Reactive Protein Globulin 4.2 H Albumin/Globulin Ratio 0.9 L Meds: Medications Acetaminophen (Acetaminophen 325 Mg Tablet) 650 mg PO Q6HP PRN; Protocol PRN Reason: Per Pain Protocol/Fever > 101 Hydrocodone Bitart/Acetaminophen (Hydrocodone/Apap 5/325mg Tablet) 1 tab PO Q4HP PRN; Protocol PRN Reason: Per Pain Protocol Last Admin: 03/28/21 22:23 Dose: 1 tab Documented by: Dextrose (Dextrose 50% 50 Ml Vial) 0 ml IV UD PRN PRN Reason: Hypoglycemia Diagnostic Test (Pha) (Accu-Chek 1 Each Strip) 1 each FS ACHS [facility] Last Admin: 03/29/21 17:30 Dose: 1 each Documented by: Docusate Sodium (Docusate Sodium 100 Mg Capsule) 100 mg PO BID [facility] Last Admin: 03/29/21 08:50 Dose: 100 mg Documented by: Glucose (Dextrose 31 Gm Oral.Susp) 15 gm PO PRN PRN PRN Reason: Hypoglycemia Piperacillin Sod/Tazobactam (Sod 4.5 gm/ Dextrose) 50 mls @ 100 mls/hr IV Q8H [facility]; Protocol Last Admin: 03/29/21 15:03 Dose: 100 mls/hr Documented by: Vancomycin HCl 1,500 mg/ (Sodium Chloride) 500 mls @ 333.3 mls/hr IV Q12H [facility] Insulin Human Lispro (Insulin Lispro 1 Unit/0.01 Ml Unit) 0 unit SQ [facility]; Protocol Last Admin: 03/29/21 17:29 Dose: 4 units Documented by: Ondansetron HCl (Ondansetron 4 Mg/2 Ml Vial) 4 mg IV Q6HP PRN PRN Reason: Nausea And Vomiting Buprenorphine 8mg (Tab) 1 dose SL QID [facility] Last Admin: 03/29/21 17:30 Dose: 1 dose Documented by: Senna (Sennosides 1 Tablet) 2 tab PO HS [facility] Last Admin: 03/28/21 21:46 Dose: 2 tab Documented by: Sodium Chloride (0.9 % Sodium Chloride 10 Ml Syringe) 10 ml IV Q8 [facility] Last Admin: 03/29/21 14:55 Dose: Not Given Documented by: Vancomycin HCl (Vancomycin Per Pharmacy) 1 order IV UD [facility]; Protocol Zolpidem Tartrate (Zolpidem 5 Mg Tablet) 10 mg PO HSP PRN PRN Reason: Insomnia Last Admin: 03/28/21 22:16 Dose: 10 mg Documented by: A/P Narrative A/P Narrative: Assessment: 45-year-old male with a history of type 2 diabetes mellitus complicated by peripheral neuropathy, hypertension, gout, GERD, insomnia, opioid use disorder in remission on sublingual buprenorphine who presented to the em ergency department for right shoulder pain and a chronic left heel ulcer that is draining purulent foul smelling fluid. MRI of the left foot showed findings concerning for osteomyelitic of the calcaneus. #Diabetic foot ulcer complicated by cellulitis #Probable osteomyelitis of left calcaneus #Positive 1/2 blood culture-gram positive cocci #Right shoulder pain of uncertain cause, infection? -CT shoulder showed moderate acromioclavicular degeneration. -patient will not tolerate an MRI without sedation #Type 2 diabetes mellitus complicated by peripheral neuropathy #Essential hypertension #Gout #GERD #Opioid use disorder on Suboxone #Obesity Plan -Vancomycin IV and Zosyn for now. -Follow all cultures. -ECHO report pending. -Follow CRP periodically. -The patient says he will not tolerate a shoulder MRI without sedation. -Consider discussing management with ID at [facility]. -Correction Humalog SSI for now, holding home metformin. -Continue home lisinopril, prilosec, buprenorphine, zolpidem. -Holding home etodolac, HCTZ, and metformin for now. -Analgesics as needed. -NPO at midnight. -DVT prophylaxis: Holding for planned surgery tomorrow. -CODE STATUS: Full -Disposition: Home when culture results are available antibiotic selection. Will need a PICC for outpatient IV antibiotic treatment, weekdly labs, and follow up with ID if available. Time Spent With Patient Time: Total time spent is greater than 50% in coordination of care (as documented) at patient's floor/unit and/or counseling patient: QUALITY VTE Deep Vein Thrombosis/Pulmonary Embolism Present on Admission: No
[2021-03-29] MEDS: VANCOMYCIN 1,500 MG in 0.9 % SODIUM CHLORIDE 500 ML IV SCH (20:32)
[2021-03-29] MEDS: HYDROcodone/APAP 5/325MG TABLET PO PRN (20:33)
[2021-03-29] MEDS: SENNOSIDES 1 TABLET PO SCH (20:34)
[2021-03-29] MEDS: ZOLPIDEM 5 MG TABLET PO PRN (21:40)
[2021-03-29] MEDS: METHOCARBAMOL 750 MG TABLET PO SCH (21:40)
[2021-03-29] MEDS: LISINOPRIL 20 MG TABLET PO SCH (21:40)
[2021-03-30] MEDS: PIPERACILLIN SODIUM/TAZOBACTAM 4.5 GM in DEXTROSE 5% IN WATER 50 ML IV SCH ×2 (06:10→14:05)
[2021-03-30] MEDS: 0.9 % SODIUM CHLORIDE 10 ML SYRINGE IV SCH ×3 (06:11→20:11)
[2021-03-30 06:45] LABS: Prealbumin 12.1 mg/dL (20.0-40.0)
--- NOTE | 2021-03-30 07:07 | EKG ---
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
[2021-03-30] MEDS: INSULIN LISPRO 1 UNIT/0.01 ML UNIT SQ SCH ×4 (07:28→20:08)
[2021-03-30 07:58] LABS: Estimated Average Glucose(eAG) 163 mg/dL; Hemoglobin A1C 7.3 % Hgb (4.0-6.0)
[2021-03-30] MEDS: DOCUSATE SODIUM 100 MG CAPSULE PO SCH ×2 (08:16→20:09)
[2021-03-30] MEDS: METHOCARBAMOL 750 MG TABLET PO SCH ×4 (08:16→20:09)
[2021-03-30] MEDS: LISINOPRIL 20 MG TABLET PO SCH ×2 (08:16→20:10)
[2021-03-30] MEDS: BUPRENORPHINE 8MG TAB SL SCH ×4 (08:22→20:09)
--- NOTE | 2021-03-30 09:06 | General Surgery Progress Note ---
SUBJECTIVE Subjective Patient information: Note initiated : 03/30/21 at 8:59 am Service Date, if different from initiated Date: [] Patient: Sohail Romano 45 y/o M admitted on 03/28/21 for right shoulder pain, ulcer on left foot. Chief Complaint: [] Principal diagnosis: POD # 1. S/P Surgical debridement infected LEFT foot DFU with sepsis Interval history: Patient had an uneventful night. LEFT foot, heel and leg dressing CDI. Toes PWD. Constitutional Vitals: Vital Signs Temp Pulse Resp BP Pulse Ox 97.6 F 85 14 117/68 96 03/30/21 08:00 03/30/21 08:00 03/30/21 08:00 03/30/21 08:00 03/30/21 08:00 Period Temp Pulse Resp BP Sys/Bello Pulse Ox Last 24 Hr 97.0 F-98.4 F 69-97 101-139/61-80 90-100 Intake and Output 03/29/21 03/30/21 03/30/21 21:59 05:59 13:59 Intake Total 150 1300 Output Total 750 825 300 Balance -600 475 -300 Weight 322 lb 3.2 oz Intake & Output: Intake & Output 03/29/21 03/30/21 03/30/21 21:59 05:59 13:59 Intake Total 150 1300 Output Total 750 825 300 Balance -600 475 -300 Weight 322 lb 3.2 oz Intake: IV 150 550 Zosyn 4.5 gm In Dextrose 5% in 50 50 Water 50 ml @ 100 mls/hr IV Q8H [facility] Rx#:[id number] Vancomycin 1,500 mg In Sodium 500 Chloride 0.9% 500 ml @ 333.3 mls/hr IV Q12H [facility] Rx#: [id number] Oral 750 Output: Void Amount 750 825 300 Other: Urine Appearance Clear Clear Urine Color Bright Yellow Dark Yellow Stool Size Moderate Stool Color Brown Stool Consistency Formed # Bowel Movements 1 Exam: AVSS. CM Unremarkable . No interval changes. LEFT foot PWD Dressings CDI Cultures and Bone biopsy results awaited. Labs: CRP and Blood sugars trending down. Prealbumin is 12. A/P Narrative A/P Narrative: Assessment: Satisfactory post surgery progress. On IV Zosyn and Vanco (Per Hospitalist) Continue. Hypoproteinemia : Start Oxandrin. Await c/s and Bx results. Plan: Await Physical Therapy and Orthopedic consults. For primary change of dressing tomorrow. ?? Consider wound VAC and off loading. Repeat routine labs CBC and BMP tomorrow. Plan reviewed with nursing staff and Dr. Aguirre. Time Spent With Patient Time: Total time spent is greater than 50% in coordination of care (as documented) at patient's floor/unit and/or counseling patient: Total time spent with greater than 50% in coordination of care (as documented) at patient's floor/unit and/or counseling patient:: 25 - 35 minutes
[2021-03-30] MEDS: OXANDROLONE 10 MG TABLET PO SCH ×2 (10:20→20:09)
[2021-03-30] MEDS ORDERED: TRIAMCINOLONE ACETONIDE 40 MG/ML VIAL IM ONE (10:55)
[2021-03-30] MEDS ORDERED: VANCOMYCIN 1,500 MG in 0.9 % SODIUM CHLORIDE 500 ML IV SCH (11:00)
--- NOTE | 2021-03-30 11:13 | Orthopedic History & Physical ---
HPI History of Present Illness Patient information: Note initiated : 03/30/21 at 11:04 am Service Date, if different from initiated Date: [] Patient: Sohail Romano 45 y/o M admitted on 03/28/21 for right shoulder pain, ulcer on left foot. Chief Complaint: [] History of present illness: Mr. Romano is a 45 year old Male with complaints of right shoulder pain that began 8 days ago after shoveling snow and cutting a lot of meat. He has pain in the right AC joint since. He has psoriatic arthritis and also has had a diabetic foot wound being managed by Dr. Chopra and is on IV antibiotics. He denies any fever, chills, nausea, vomitting or any other acute symptoms. Review of Systems Review of systems: 10 point system reviewed and is negative except as documented in the HPI. PFSH PFSH All Active Problems Diabetic foot ulcer (Acute) Osteomyelitis (Acute) Right shoulder pain (Acute) Insomnia (Chronic) Nausea & vomiting (Acute) Diabetes mellitus (Chronic) Fatigue (Acute) Staph infection (Acute) Cellulitis (Acute) Encounter for monitoring of patient compliance in drug treatment program (Acute) DM w/o complication type II (Acute) Hypertension (Chronic) Gout (Chronic) Opioid dependence in remission (Chronic) Family history unremarkable (Acute) Medical History Anxiety Chronic gout Dental caries, unspecified Diabetes mellitus Family history unremarkable Fatigue Hypertension Insomnia Low back pain syndrome Nausea & vomiting Opioid dependence, in remission Opioid dependence, uncomplicated Psoriatic arthritis Situational anxiety Staph infection Type 2 diabetes mellitus without complications Surgical History No history of previous surgery Family History Other No pertinent family history Social History marital status: single occupational status: 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[employer], 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 physical activity: walking frequency: 3-4 times per week counseling given: provider counseling alcohol intake frequency: does not drink substance use type: does not use seatbelt use: sometimes MEDS/ALLERGIES Home Medications and Allergies Home Medications Medication Instructions Recorded Confirmed Type colchicine 0.6 mg tablet (Colcrys) 0.6 mg PO QDAY PRN 01/12/19 03/28/21 History omeprazole 20 mg tablet,delayed 20 mg PO 1800 01/12/19 03/28/21 History release buprenorphine HCl 8 mg sublingual 8 mg SUBLINGUAL QID #120 tab 03/06/21 03/28/21 Rx tablet etodolac 400 mg tablet 400 mg PO BID 14 Days #28 tab 03/21/21 03/28/21 Rx hydrochlorothiazide 25 mg tablet 25 mg PO DAILY 03/28/21 03/28/21 History lisinopril 20 mg tablet 20 mg PO BID 03/28/21 03/28/21 History metformin 500 mg tablet,extended 1,000 mg PO ACS 03/28/21 03/28/21 History release 24 hr methocarbamol 750 mg tablet 750 mg PO QID 03/28/21 03/28/21 History zolpidem 10 mg tablet (Ambien) 10 mg PO QHS 03/28/21 03/28/21 History Allergies Allergy/AdvReac Type Severity Reaction Status Date / Time No Known Drug Allergies Allergy Verified 03/28/21 11:33 Physical Examination Narrative Narrative: Narrative: Shoulder right: Previous incision location riley: palpaple spur over the right ac joint that is tender. no erythema/swelling Tenderness with palpation: ACJ Pain: with abduction and with forward flexion ROM: abduction: normal (but painful) ROM: forward flexion: normal (but painful) ROM: extension: normal ROM: adduction: normal ROM: internal rotation: normal ROM: external rotation: normal Crepitus with motion: No Strength: abduction: 5/5 Strength: forward flexion: 5/5 Strength: extension: 5/5 Strength: adduction: 5/5 Strength: internal rotation: 5/5 Strength: external rotation: 5/5 Results Labs Result Diagrams: 03/29/21 05:19 03/29/21 05:19 Labs: Abnormal lab results 03/29/21 03/30/21 Range/Units 05:19 05:08 Hemoglobin A1c 7.3 H 7.3 H (4.0-6.0) % Hgb C-Reactive Protein 7.00 H (0.03-0.80) mg/dL Prealbumin 12.1 L (20.0-40.0) mg/dL H & H 03/28/21 03/28/21 03/29/21 Range/Units 14:21 17:51 05:19 Hgb 11.7 L 11.1 L 10.6 L (13.7-17.5) g/dL Hct 35.9 L 33.1 L 32.8 L (40.1-51.0) % All other labs normal. Diagnostic results Shoulder x-ray: image reviewed Shoulder CT: image reviewed A/P Narrative A/P Narrative: Assessment: Moderate AC joint arthritis Plan: After history and physical exam the patient has evidence of the above. His x-rays show moderate AC joint arthitis without other significant findings. CT shows no effusion of AC or glenohumeral joint. He has good motion in the shoulder but the AC joint is very painful upon palpation and motion. At this point we discussed treatment options and I feel the chances of septic arthritis of the AC joint are very rare. He also was very active when the pain began. I reviewed the case with Dr. Lawrence who feels an injection with kenalog will benefit the patient and help with pain. Patient will follow up with [facility] in the future as needed. Procedure note: Informed consent was obtained. I steriley prepped the skin over the right AC joint with betadine. I then injected the joint with 1 cc of 1% lidocaine and 1 cc of kenalog 40. Patient tolerated procedure well. Time Spent With Patient Time: Total time spent is greater than 50% in coordination of care (as documented) at patient's floor/unit and/or counseling patient:
[2021-03-30] MEDS ORDERED: MELOXICAM 7.5 MG TABLET PO SCH (14:25)
[2021-03-30] MEDS: OMEPRAZOLE 20 MG CAPSULE PO SCH (15:47)
[2021-03-30] MEDS: cefTRIAXone 2 GM in DEXTROSE 5% IN WATER 50 ML IV SCH (15:47)
[2021-03-30] MEDS ORDERED: OMEPRAZOLE 20 MG CAPSULE PO SCH (18:00)
--- NOTE | 2021-03-30 18:47 | Internal Med Progress Note ---
SUBJECTIVE Subjective Patient information: Note initiated : 03/30/21 at 6:35 pm Service Date, if different from initiated Date: [] Patient: Sohail Romano 45 y/o M admitted on 03/28/21 for right shoulder pain, ulcer on left foot. Chief Complaint: [] Principal diagnosis: POD # 1. S/P Surgical debridement infected LEFT foot DFU with sepsis Interval history: Sohail Romano is a 45-year-old male with a history of type 2 diabetes mellitus, hypertension, gout, GERD, insomnia, opioid use disorder on sublingual buprenorphine who presented to the emergency department for shoulder pain that began spontaneously without recent trauma as well as a left heel wound. The patient has had this wound for quite some time and recently it has begun to drain purulent material and produce a foul odor. The shoulder pain is more acut e, he says that pain is aggravated most by movement to the point that he cannot move the shoulder without severe pain. In the emergency department, the patient had routine blood work which did not show any leukocytosis he does have a normocytic anemia that is new, chemistry panel was fairly unremarkable. An MRI of the patient's left foot was done without contrast, that showed increased signal throughout the posterior two thirds of the calcaneus compatible with osteomyelitis. There is a cutaneous ulcer of the posterior calcaneus with cellulitis in the intervening plantar fascia. Hospital medicine was asked to admit the patient for further management. 03/29 The patient had surgical debridement of the left heel wound and biopsy of the calcaneal bone today. 1/2 blood cultures growing gram positive cocci. Started Vancomycin IV and Zosyn. ECHO ordered. Waiting on culture results. CT scan of the right shoulder showed moderate acromioclavicular degeneration. 03/30 Blood cultures results reporting Beta strep and Alpha strep. Left foot surgical cultures growing Streptococcus dysgalactiae. Deescalated antibiotics to Ceftriaxone 2 gm IV Q24 hours. Repeated blood cultures, will need a PICC if repeat cultures do not grow any organism. ECHO did not identify any vegetations. Dr. Caceres considering a wound VAC. Orthopedic surgery injected the right AC joint with lidocaine and kenalog. Physical exam Head: Atraumatic, normal inspection. Eyes: normal appearance, no scleral icterus. Neck: full ROM Respiratory: no respiratory distress. Cardiovascular: normal rate and rhythm, S1, S2. GI/Abdominal: Obesely distended abdomen, soft, nontender, no guarding. Extremities: Improved tenderness over the right acromioclavicular joint, left foot covered in clean bandage. Neurological: CN II-XII intact, intact motor, bilateral lower extremity sensory deficits consistent with diabetic neuropathy. Psychiatric: normal mood. Skin: Left heel wound covered with clean bandages. Constitutional Vitals: Vital Signs Temp Pulse Resp BP Pulse Ox 98.0 F 81 14 127/76 95 03/30/21 16:00 03/30/21 16:00 03/30/21 16:00 03/30/21 16:00 03/30/21 16:00 Period Temp Pulse Resp BP Sys/Bello Pulse Ox Last 24 Hr 97.0 F-98.0 F 69-91 14-16 117-139/68-76 95-97 Intake and Output 03/30/21 03/30/21 03/30/21 05:59 13:59 21:59 Intake Total 1300 1030 850 Output Total 825 300 650 Balance 475 730 200 Weight 146.147 kg Patient Weight 03/31/21 05:59 Weight 146.147 kg Intake & Output: Intake & Output 03/30/21 03/30/21 03/30/21 05:59 13:59 21:59 Intake Total 1300 1030 850 Output Total 825 300 650 Balance 475 730 200 Weight 146.147 kg Intake: IV 550 550 50 Zosyn 4.5 gm In Dextrose 5% in 50 50 Water 50 ml @ 100 mls/hr IV Q8H [facility] Rx#:[id number] Vancomycin 1,500 mg In Sodium 500 500 Chloride 0.9% 500 ml @ 333.3 mls/hr IV Q8H [facility] Rx#:[id number] Rocephin 2 gm In Dextrose 5% in 50 Water 50 ml @ 100 mls/hr IV Q24H [facility] Rx#:[id number] Oral 750 480 800 Output: Void Amount 825 300 650 Other: Meal Breakfast Lunch Percent of Meal Consumed 100% 100% Urine Appearance Clear Urine Color Dark Yellow OBJ DATA Labs CBC & Chem 7: 03/29/21 05:19 03/29/21 05:19 Labs: Abnormal Lab Results 03/30/21 03/29/21 03/29/21 05:08 05:19 05:19 RBC Hgb Hct Basophils % (Manual) Sodium 131 L Chloride 91 L Glucose 180 H Hemoglobin A1c 7.3 H 7.3 H C-Reactive Protein 7.00 H Globulin Albumin/Globulin Ratio Prealbumin 12.1 L 03/29/21 03/28/21 03/28/21 05:19 17:51 17:51 RBC 4.06 L 4.13 L Hgb 10.6 L 11.1 L Hct 32.8 L 33.1 L Basophils % (Manual) 3 H Sodium Chloride Glucose Hemoglobin A1c C-Reactive Protein 9.10 H Globulin Albumin/Globulin Ratio Prealbumin 03/28/21 03/28/21 14:21 14:21 RBC 4.46 L Hgb 11.7 L Hct 35.9 L Basophils % (Manual) Sodium Chloride 92 L Glucose 167 H Hemoglobin A1c C-Reactive Protein Globulin 4.2 H Albumin/Globulin Ratio 0.9 L Prealbumin Meds: Medications Acetaminophen (Acetaminophen 325 Mg Tablet) 650 mg PO Q6HP PRN; Protocol PRN Reason: Per Pain Protocol/Fever > 101 Hydrocodone Bitart/Acetaminophen (Hydrocodone/Apap 5/325mg Tablet) 1 tab PO Q4HP PRN; Protocol PRN Reason: Per Pain Protocol Last Admin: 03/29/21 20:33 Dose: 1 tab Documented by: Dextrose (Dextrose 50% 50 Ml Vial) 0 ml IV UD PRN PRN Reason: Hypoglycemia Diagnostic Test (Pha) (Accu-Chek 1 Each Strip) 1 each FS [facility] Last Admin: 03/30/21 17:20 Dose: 1 each Documented by: Docusate Sodium (Docusate Sodium 100 Mg Capsule) 100 mg PO BID [facility] Last Admin: 03/30/21 08:16 Dose: 100 mg Documented by: Glucose (Dextrose 31 Gm Oral.Susp) 15 gm PO PRN PRN PRN Reason: Hypoglycemia Ceftriaxone Sodium 2 gm/ (Dextrose) 50 mls @ 100 mls/hr IV Q24H [facility]; Protocol Last Infusion: 03/30/21 16:37 Dose: Infused Documented by: Insulin Human Lispro (Insulin Lispro 1 Unit/0.01 Ml Unit) 0 unit SQ [facility]; Protocol Last Admin: 03/30/21 17:20 Dose: 2 units Documented by: Lisinopril (Lisinopril 20 Mg Tablet) 20 mg PO BID [facility] Last Admin: 03/30/21 08:16 Dose: 20 mg Documented by: Methocarbamol (Methocarbamol 750 Mg Tablet) 750 mg PO QID [facility] Last Admin: 03/30/21 17:19 Dose: 750 mg Documented by: Omeprazole (Omeprazole 20 Mg Capsule) 20 mg PO DAILY [facility] Last Admin: 03/30/21 15:47 Dose: 20 mg Documented by: Ondansetron HCl (Ondansetron 4 Mg/2 Ml Vial) 4 mg IV Q6HP PRN PRN Reason: Nausea And Vomiting Oxandrolone (Oxandrolone 10 Mg Tablet) 5 mg PO BID [facility] Last Admin: 03/30/21 10:20 Dose: 5 mg Documented by: Buprenorphine 8mg (Tab) 1 dose SL QID [facility] Last Admin: 03/30/21 17:20 Dose: Not Given Documented by: Senna (Sennosides 1 Tablet) 2 tab PO HS [facility] Last Admin: 03/29/21 20:34 Dose: Not Given Documented by: Sodium Chloride (0.9 % Sodium Chloride 10 Ml Syringe) 10 ml IV Q8 [facility] Last Admin: 03/30/21 14:04 Dose: Not Given Documented by: Zolpidem Tartrate (Zolpidem 5 Mg Tablet) 10 mg PO HSP PRN PRN Reason: Insomnia Last Admin: 03/29/21 21:40 Dose: 10 mg Documented by: A/P Narrative A/P Narrative: Assessment: 45-year-old male with a history of type 2 diabetes mellitus complicated by peripheral neuropathy, hypertension, gout, GERD, insomnia, opioid use disorder in remission on sublingual buprenorphine who presented to the emergency department for right shoulder pain and a chronic left heel ulcer that is draining purulent foul smelling fluid. MRI of the left foot showed findings concerning for osteomyelitic of the calcaneus. The patient did not appear septic therefore antibiotic therapy was held until surgical cultures could be obtained. The patient underwent I&D on 03/29/21, surgical cultures grew Streptococcus dysgalactiae. 1/2 blood cultures from admission are growing Beta strep and Alpha strep. TTE did not identify any vegetations. Vascular supply to the left foot appears intact and surgery reported good bleeding during the I&D. 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 -CT shoulder showed moderate acromioclavicular degeneration. -patient will not tolerate an MRI without sedation #Type 2 diabetes mellitus complicated by peripheral neuropathy -hemoglobin A1C 7.3 #Normocytic anemia #Essential hypertension #Gout #GERD #Opioid use disorder on Suboxone #Obesity Plan -Ceftriaxone 2 gm IV Q24 hrs. -Repeat blood cultures today. -Follow all culture results. -Correction Humalog SSI for now, holding home metformin. -Continue home lisinopril, prilosec, buprenorphine, zolpidem HS. -Holding home etodolac, HCTZ, and metformin for now. -Analgesics as needed. -Diabetic diet. -DVT prophylaxis:Lovenox SQ -CODE STATUS: Full -Disposition: The outpatient antibiotic will likely be Ceftriaxone 2 gm IV Q24 hrs for 6 weeks for calcaneal osteomyelitis. Will need a PICC when repeat blood cultures show no growth for 48-72 hours. Unclear if antibiotic infusions will be at home or at the infusion center, the patient reportedly does not have insurance to cover home antibiotic infusions. Will need weekly CBC, Cr, LFT, CRP labs while receiving IV antibiotic. Follow up with ID if available, if not then a primary care provider in the area. Time Spent With Patient Time: Total time spent is greater than 50% in coordination of care (as documented) at patient's floor/unit and/or counseling patient: QUALITY VTE Deep Vein Thrombosis/Pulmonary Embolism Present on Admission: No
[2021-03-30] MEDS: HYDROcodone/APAP 5/325MG TABLET PO PRN (20:09)
[2021-03-30] MEDS: ZOLPIDEM 5 MG TABLET PO PRN (20:10)
[2021-03-30] MEDS: SENNOSIDES 1 TABLET PO SCH (20:20)
[2021-03-31] MEDS: VANCOMYCIN 1,500 MG in 0.9 % SODIUM CHLORIDE 500 ML IV SCH (01:00)
[2021-03-31] MEDS: 0.9 % SODIUM CHLORIDE 10 ML SYRINGE IV SCH ×3 (04:08→21:08)
[2021-03-31 06:41] LABS: Basophils # (Auto) 0.03 K/mcL (0.00-0.30); Basophils % (Auto) 0.5 % (0.0-2.0); Eosinophils # (Auto) 0.02 K/mcL (0.00-0.70); Eosinophils % (Auto) 0.3 % (0.0-7.0); Hematocrit 32.8 % (40.1-51.0); Hemoglobin 10.5 g/dL (13.7-17.5); Lymphocytes # (Auto) 2.02 K/mcL (1.50-4.80); Lymphocytes % (Auto) 31.7 % (15.5-49.0); Mean Cell Volume 81.4 fL (80.0-100.0); Mean Platelet Volume 9.5 fL (7.4-10.4); Monocytes # (Auto) 0.47 K/mcL (0.10-0.90); Monocytes % (Auto) 7.4 % (1.0-12.0); Neutrophils % (Auto) 60.1 % (38.0-78.0); Platelet Count 268 K/mcL (140-440); RBC 4.03 M/mcL (4.63-6.08); Red Cell Distribution Width 12.4 % (11.5-14.5); WBC 6.4 K/mcL (4.5-11.0)
[2021-03-31] MEDS: INSULIN LISPRO 1 UNIT/0.01 ML UNIT SQ SCH ×4 (07:44→21:07)
[2021-03-31 08:14] LABS: Blood Urea Nitrogen 12 mg/dL (6-20); Carbon Dioxide 28 mmol/L (22-30); Chloride 100 mmol/L (96-108); Glomerular Filtration Rate 113; Glucose 182 mg/dL (70-105)
[2021-03-31] MEDS: METHOCARBAMOL 750 MG TABLET PO SCH ×4 (08:50→21:07)
[2021-03-31] MEDS: OMEPRAZOLE 20 MG CAPSULE PO SCH (08:50)
[2021-03-31] MEDS: OXANDROLONE 10 MG TABLET PO SCH ×2 (08:50→21:07)
[2021-03-31] MEDS: LISINOPRIL 20 MG TABLET PO SCH ×2 (08:50→21:08)
[2021-03-31] MEDS: DOCUSATE SODIUM 100 MG CAPSULE PO SCH ×2 (08:50→19:47)
[2021-03-31] MEDS: ENOXAPARIN 40 MG/0.4 ML SYRINGE SQ SCH (08:52)
[2021-03-31] MEDS: BUPRENORPHINE 8MG TAB SL SCH ×4 (09:07→19:47)
[2021-03-31] MEDS: cefTRIAXone 2 GM in DEXTROSE 5% IN WATER 50 ML IV SCH (09:11)
--- NOTE | 2021-03-31 11:59 | Internal Med Progress Note ---
SUBJECTIVE Subjective Patient information: Note initiated : 03/31/21 at 11:53 am Service Date, if different from initiated Date: [] Patient: Sohail Romano 45 y/o M admitted on 03/28/21 for right shoulder pain, ulcer on left foot. Chief Complaint: [] Principal diagnosis: POD # 1. S/P Surgical debridement infected LEFT foot DFU with sepsis Interval history: Sohail Romano is a 45-year-old male with a history of type 2 diabetes mellitus, hypertension, gout, GERD, insomnia, opioid use disorder on sublingual buprenorphine who presented to the emergency department for shoulder pain that began spontaneously without recent trauma as well as a left heel wound. The patient has had this wound for quite some time and recently it has begun to drain purulent material and produce a foul odor. The shoulder pain is more acu te, he says that pain is aggravated most by movement to the point that he cannot move the shoulder without severe pain. In the emergency department, the patient had routine blood work which did not show any leukocytosis he does have a normocytic anemia that is new, chemistry panel was fairly unremarkable. An MRI of the patient's left foot was done without contrast, that showed increased signal throughout the posterior two thirds of the calcaneus compatible with osteomyelitis. There is a cutaneous ulcer of the posterior calcaneus with cellulitis in the intervening plantar fascia. Hospital medicine was asked to admit the patient for further management. 03/29 The patient had surgical debridement of the left heel wound and biopsy of the calcaneal bone today. 03/19 blood cultures growing gram positive cocci. Started Vancomycin IV and Zosyn. ECHO ordered. Waiting on culture results. CT scan of the right shoulder showed moderate acromioclavicular degeneration. 03/30 Blood cultures results reporting Beta strep and Alpha strep. Left foot surgical cultures growing Streptococcus dysgalactiae. Deescalated antibiotics to Ceftriaxone 2 gm IV Q24 hours. Repeated blood cultures, will need a PICC if repeat cultures do not grow any organism. ECHO did not identify any vegetations. Dr. Caceres considering a wound VAC. Orthopedic surgery injected the right AC joint with lidocaine and kenalog. 03/31 Awaiting sentinel blood cultures before placing PICC. Plan will be for the patient to go to the infusion center for antibiotics. Dr. Scott to evaluate the wound today and decide if wound VAC is needed. Physical exam Head: Atraumatic, normal inspection. Eyes: normal appearance, no scleral icterus. Neck: full ROM Respiratory: no respiratory distress. Cardiovascular: normal rate and rhythm, S1, S2. GI/Abdominal: Obesely distended abdomen, soft, nontender, no guarding. Extremities: Improved tenderness over the right acromioclavicular joint, left foot covered in clean bandage. Neurological: CN II-XII intact, intact motor, bilateral lower extremity sensory deficits consistent with diabetic neuropathy. Psychiatric: normal mood. Skin: Left heel wound covered with clean bandages. Constitutional Vitals: Vital Signs Temp Pulse Resp BP Pulse Ox 96.7 F L 74 20 149/92 97 03/31/21 11:47 03/31/21 11:47 03/31/21 11:47 03/31/21 11:47 03/31/21 11:47 Period Temp Pulse Resp BP Sys/Bello Pulse Ox Last 24 Hr 96.7 F-98.9 F 70-103 14-20 102-149/60-92 94-99 Intake and Output 03/30/21 03/31/21 03/31/21 21:59 05:59 13:59 Intake Total 850 700 Output Total 650 1150 700 Balance 200 -450 -700 Weight 148.597 kg Intake & Output: Intake & Output 03/30/21 03/31/21 03/31/21 21:59 05:59 13:59 Intake Total 850 700 Output Total 650 1150 700 Balance 200 -450 -700 Weight 148.597 kg Intake: IV 50 Rocephin 2 gm In Dextrose 5% in 50 Water 50 ml @ 100 mls/hr IV Q24H [facility] Rx#:[id number] Oral 800 700 Output: Void Amount 650 1150 700 Other: Meal Lunch Percent of Meal Consumed 100% Urine Color Dark Yellow OBJ DATA Labs CBC & Chem 7: 03/31/21 05:09 03/31/21 05:09 Labs: Abnormal Lab Results 03/31/21 03/31/21 03/31/21 10:07 05:09 05:09 RBC 4.03 L Hgb 10.5 L Hct 32.8 L Basophils % (Manual) Sodium Chloride Glucose 182 H Hemoglobin A1c C-Reactive Protein Globulin Albumin/Globulin Ratio Prealbumin Vancomycin Trough < 4.0 L 03/30/21 03/29/21 03/29/21 05:08 05:19 05:19 RBC Hgb Hct Basophils % (Manual) Sodium 131 L Chloride 91 L Glucose 180 H Hemoglobin A1c 7.3 H 7.3 H C-Reactive Protein 7.00 H Globulin Albumin/Globulin Ratio Prealbumin 12.1 L Vancomycin Trough 03/29/21 03/28/21 03/28/21 05:19 17:51 17:51 RBC 4.06 L 4.13 L Hgb 10.6 L 11.1 L Hct 32.8 L 33.1 L Basophils % (Manual) 3 H Sodium Chloride Glucose Hemoglobin A1c C-Reactive Protein 9.10 H Globulin Albumin/Globulin Ratio Prealbumin Vancomycin Trough 03/28/21 03/28/21 14:21 14:21 RBC 4.46 L Hgb 11.7 L Hct 35.9 L Basophils % (Manual) Sodium Chloride 92 L Glucose 167 H Hemoglobin A1c C-Reactive Protein Globulin 4.2 H Albumin/Globulin Ratio 0.9 L Prealbumin Vancomycin Trough Meds: Medications Acetaminophen (Acetaminophen 325 Mg Tablet) 650 mg PO Q6HP PRN; Protocol PRN Reason: Per Pain Protocol/Fever > 101 Hydrocodone Bitart/Acetaminophen (Hydrocodone/Apap 5/325mg Tablet) 1 tab PO Q4HP PRN; Protocol PRN Reason: Per Pain Protocol Last Admin: 03/30/21 20:09 Dose: 1 tab Documented by: Dextrose (Dextrose 50% 50 Ml Vial) 0 ml IV UD PRN PRN Reason: Hypoglycemia Diagnostic Test (Pha) (Accu-Chek 1 Each Strip) 1 each FS ACHS [facility] Last Admin: 03/31/21 07:44 Dose: 1 each Documented by: Docusate Sodium (Docusate Sodium 100 Mg Capsule) 100 mg PO BID [facility] Last Admin: 03/31/21 08:50 Dose: 100 mg Documented by: Enoxaparin Sodium (Enoxaparin 40 Mg/0.4 Ml Syringe) 40 mg SQ DAILY [facility] Last Admin: 03/31/21 08:52 Dose: 40 mg Documented by: Glucose (Dextrose 31 Gm Oral.Susp) 15 gm PO PRN PRN PRN Reason: Hypoglycemia Ceftriaxone Sodium 2 gm/ (Dextrose) 50 mls @ 100 mls/hr IV Q24H [facility]; Protocol Last Admin: 03/31/21 09:11 Dose: 100 mls/hr Documented by: Insulin Human Lispro (Insulin Lispro 1 Unit/0.01 Ml Unit) 0 unit SQ [facility]; Protocol Last Admin: 03/31/21 11:50 Dose: 4 unit Documented by: Lisinopril (Lisinopril 20 Mg Tablet) 20 mg PO BID [facility] Last Admin: 03/31/21 08:50 Dose: 20 mg Documented by: Methocarbamol (Methocarbamol 750 Mg Tablet) 750 mg PO QID [facility] Last Admin: 03/31/21 08:50 Dose: 750 mg Documented by: Omeprazole (Omeprazole 20 Mg Capsule) 20 mg PO DAILY [facility] Last Admin: 03/31/21 08:50 Dose: 20 mg Documented by: Ondansetron HCl (Ondansetron 4 Mg/2 Ml Vial) 4 mg IV Q6HP PRN PRN Reason: Nausea And Vomiting Oxandrolone (Oxandrolone 10 Mg Tablet) 5 mg PO BID [facility] Last Admin: 03/31/21 08:50 Dose: 5 mg Documented by: Buprenorphine 8mg (Tab) 1 dose SL QID [facility] Last Admin: 03/31/21 09:07 Dose: 1 dose Documented by: Senna (Sennosides 1 Tablet) 2 tab PO HS [facility] Last Admin: 03/30/21 20:20 Dose: Not Given Documented by: Sodium Chloride (0.9 % Sodium Chloride 10 Ml Syringe) 10 ml IV Q8 [facility] Last Admin: 03/31/21 04:08 Dose: 10 ml Documented by: Zolpidem Tartrate (Zolpidem 5 Mg Tablet) 10 mg PO HSP PRN PRN Reason: Insomnia Last Admin: 03/30/21 20:10 Dose: 10 mg Documented by: A/P Narrative A/P Narrative: Assessment: 45-year-old male with a history of type 2 diabetes mellitus complicated by peripheral neuropathy, hypertension, gout, GERD, insomnia, opioid use disorder in remission on sublingual buprenorphine who presented to the emergency department for right shoulder pain and a chronic left heel ulcer that is draining purulent foul smelling fluid. MRI of the left foot showed findings concerning for osteomyelitic of the calcaneus. The patient did not appear septic therefore antibiotic therapy was held until surgical cultures could be obtained. The patient underwent I&D on 03/29/21, surgical cultures grew Streptococcus dysgalactiae. 1/2 blood cultures from admission are growing Beta strep and Alpha strep. TTE did not identify any vegetations. Vascular supply to the left foot appears intact and surgery reported good bleeding during the I&D. 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 -patient will not tolerate an MRI without sedation -s/p injection by orthopedic surgery #Type 2 diabetes mellitus complicated by peripheral neuropathy -hemoglobin A1C 7.3 #Normocytic anemia #Essential hypertension #Gout #GERD #Opioid use disorder on Suboxone #Obesity Plan -Ceftriaxone 2 gm IV Q24 hrs. -Follow sentinel blood cultures, place PICC if no growth >48 hrs. -Correction Humalog SSI for now, holding home metformin. -Continue home lisinopril, prilosec, buprenorphine, zolpidem HS. -Holding home etodolac, HCTZ, and metformin for now. -Analgesics as needed. -Diabetic diet. -DVT prophylaxis:Lovenox SQ -CODE STATUS: Full -Disposition: The outpatient antibiotic will likely be Ceftriaxone 2 gm IV Q24 hrs for 6 weeks for calcaneal osteomyelitis. Will need a PICC when repeat blood cultures show no growth for 48-72 hours. Could discharge and get PICC outpatient meanwhile receive infusions at the infusion center by PIV. Plan is for the patient to receive antibiotics at the infusion center as his insurance will not cover home infusions. Will need weekly CBC, Cr, LFT, CRP labs while receiving IV antibiotic. Follow up with PCP and Dr. Scott for further cares. Time Spent With Patient Time: Total time spent is greater than 50% in coordination of care (as documented) at patient's floor/unit and/or counseling patient: QUALITY VTE Deep Vein Thrombosis/Pulmonary Embolism Present on Admission: No
--- NOTE | 2021-03-31 13:45 | General Surgery Progress Note ---
SUBJECTIVE Subjective Patient information: Note initiated : 03/31/21 at 1:38 pm Service Date, if different from initiated Date: [] Patient: Sohail Romano 45 y/o M admitted on 03/28/21 for right shoulder pain, ulcer on left foot. Chief Complaint: [] Principal diagnosis: POD # 1. S/P Surgical debridement infected LEFT foot DFU with sepsis Additional PMFSH (Level 3 Only): POD #2. Patient seen with Brett Barlow RN and Virgilio Chamberlain RN Plan of care discussed with Dr. Chadd Aragon DO Hospitalist Physician. Primary dressing changed and LEFT heel wound examined. Constitutional Vitals: Vital Signs Temp Pulse Resp BP Pulse Ox 96.7 F L 74 20 149/92 97 03/31/21 11:47 03/31/21 11:47 03/31/21 11:47 03/31/21 11:47 03/31/21 11:47 Period Temp Pulse Resp BP Sys/Bello Pulse Ox Last 24 Hr 96.7 F-98.9 F 70-103 14-20 102-149/60-92 94-99 Intake and Output 03/30/21 03/31/21 03/31/21 21:59 05:59 13:59 Intake Total 850 700 Output Total 650 1150 700 Balance 200 -450 -700 Weight 327 lb 9.6 oz Intake & Output: Intake & Output 03/30/21 03/31/21 03/31/21 21:59 05:59 13:59 Intake Total 850 700 Output Total 650 1150 700 Balance 200 -450 -700 Weight 327 lb 9.6 oz Intake: IV 50 Rocephin 2 gm In Dextrose 5% in 50 Water 50 ml @ 100 mls/hr IV Q24H [facility] Rx#:[id number] Oral 800 700 Output: Void Amount 650 1150 700 Other: Meal Lunch Percent of Meal Consumed 100% Urine Color Dark Yellow Exam: AVSS. No changes CM. RIGHT shoulder ACJ pain has improved after Cortisone injection. RIGHT foot dressing changed and packing removed. There is blood stained and purulent debris on packing. NO crepitus. NO residual loculations or collections. Wound c/s Strep agalactiae. IV changed to Rocephin Q D BONE biopsy report awaited. CRP has trended down. Hypoproteinemia. Started on Oxandrin. Patient now has a roll about scooter for off loading LEFT foot . A/P Narrative A/P Narrative: Assessment: Slow steady progress thus far. Still has odor to wound. The wound cavity is wide and open. NEEDS daily irrigation and GCB packing. Agree with IV antibiotics. AWAIT FINAL BONE BIOPSY RESULTS. Hold off on wound VAC at this time. Plan: Continue present management. Case management to see patient NEED Discharge planning / continuity of care plan. Following patient during hospitalization. Time Spent With Patient Time: Total time spent is greater than 50% in coordination of care (as documented) at patient's floor/unit and/or counseling patient: Total time spent with greater than 50% in coordination of care (as documented) at patient's floor/unit and/or counseling patient:: Greater than 35 minutes
[2021-03-31] MEDS: GENTAMICIN SULFATE 40 MG, CLINDAMYCIN 300 MG in SODIUM CHLORIDE IRRIG SOLUTION 500 ML IRR SCH (13:48)
--- NOTE | 2021-03-31 14:42 | Internal Med Progress Note ---
SUBJECTIVE Subjective Patient information: Note initiated : 03/31/21 at 2:35 pm Service Date, if different from initiated Date: [] Patient: Sohail Romano 45 y/o M admitted on 03/28/21 for right shoulder pain, ulcer on left foot. Chief Complaint: [] Principal diagnosis: POD # 1. S/P Surgical debridement infected LEFT foot DFU with sepsis Interval history: Sohail Romano is a 45-year-old male with a history of type 2 diabetes mellitus, hypertension, gout, GERD, insomnia, opioid use disorder on sublingual buprenorphine who presented to the emergency department for shoulder pain that began spontaneously without recent trauma as well as a left heel wound. The patient has had this wound for quite some time and recently it has begun to drain purulent material and produce a foul odor. The shoulder pain is more acut e, he says that pain is aggravated most by movement to the point that he cannot move the shoulder without severe pain. In the emergency department, the patient had routine blood work which did not show any leukocytosis he does have a normocytic anemia that is new, chemistry panel was fairly unremarkable. An MRI of the patient's left foot was done without contrast, that showed increased signal throughout the posterior two thirds of the calcaneus compatible with osteomyelitis. There is a cutaneous ulcer of the posterior calcaneus with cellulitis in the intervening plantar fascia. Hospital medicine was asked to admit the patient for further management. 03/29 The patient had surgical debridement of the left heel wound and biopsy of the calcaneal bone today. 03/19 blood cultures growing gram positive cocci. Started Vancomycin IV and Zosyn. ECHO ordered. Waiting on culture results. CT scan of the right shoulder showed moderate acromioclavicular degeneration. 03/30 Blood cultures results reporting Beta strep and Alpha strep. Left foot surgical cultures growing Streptococcus dysgalactiae. Deescalated antibiotics to Ceftriaxone 2 gm IV Q24 hours. Repeated blood cultures, will need a PICC if repeat cultures do not grow any organism. ECHO did not identify any vegetations. Dr. Caceres considering a wound VAC. Orthopedic surgery injected the right AC joint with lidocaine and kenalog. 03/31 Awaiting sentinel blood cultures before placing PICC. Plan will be for the patient to go to the infusion center for antibiotics. Dr. Scott to evaluate the wound today and decide if wound VAC is needed. 04/01 Constitutional Vitals: Vital Signs Temp Pulse Resp BP Pulse Ox 96.7 F L 74 20 149/92 97 03/31/21 11:47 03/31/21 11:47 03/31/21 11:47 03/31/21 11:47 03/31/21 11:47 Period Temp Pulse Resp BP Sys/Bello Pulse Ox Last 24 Hr 96.7 F-98.9 F 70-103 14-20 102-149/60-92 94-99 Intake and Output 03/31/21 03/31/21 03/31/21 05:59 13:59 21:59 Intake Total 700 Output Total 1150 700 Balance -450 -700 Intake & Output: Intake & Output 03/31/21 03/31/21 03/31/21 05:59 13:59 21:59 Intake Total 700 Output Total 1150 700 Balance -450 -700 Intake: Oral 700 Output: Void Amount 1150 700 Other: Urine Color Dark Yellow Exam: General: Alert, Awake, No acute Distress, obese Eyes/N/T: EOMI, Head/Neck: neck supple, CV: RRR, No murmurs, Pulm: Clear b/l, no wheezing/rhonchi/rales Abd: soft, nontender, +BS x4 Ext: no clubbing/cyanosis, Neuro: Alert, no focal deficits, moves all extremities, Skin: warm/dry OBJ DATA Labs CBC & Chem 7: 03/31/21 05:09 03/31/21 05:09 Labs: Abnormal Lab Results 03/31/21 03/31/21 03/31/21 10:07 05:09 05:09 RBC 4.03 L Hgb 10.5 L Hct 32.8 L Basophils % (Manual) Sodium Chloride Glucose 182 H Hemoglobin A1c C-Reactive Protein Globulin Albumin/Globulin Ratio Prealbumin Vancomycin Trough < 4.0 L 03/30/21 03/29/21 03/29/21 05:08 05:19 05:19 RBC Hgb Hct Basophils % (Manual) Sodium 131 L Chloride 91 L Glucose 180 H Hemoglobin A1c 7.3 H 7.3 H C-Reactive Protein 7.00 H Globulin Albumin/Globulin Ratio Prealbumin 12.1 L Vancomycin Trough 03/29/21 03/28/21 03/28/21 05:19 17:51 17:51 RBC 4.06 L 4.13 L Hgb 10.6 L 11.1 L Hct 32.8 L 33.1 L Basophils % (Manual) 3 H Sodium Chloride Glucose Hemoglobin A1c C-Reactive Protein 9.10 H Globulin Albumin/Globulin Ratio Prealbumin Vancomycin Trough 03/28/21 03/28/21 14:21 14:21 RBC 4.46 L Hgb 11.7 L Hct 35.9 L Basophils % (Manual) Sodium Chloride 92 L Glucose 167 H Hemoglobin A1c C-Reactive Protein Globulin 4.2 H Albumin/Globulin Ratio 0.9 L Prealbumin Vancomycin Trough Meds: Medications Acetaminophen (Acetaminophen 325 Mg Tablet) 650 mg PO Q6HP PRN; Protocol PRN Reason: Per Pain Protocol/Fever > 101 Hydrocodone Bitart/Acetaminophen (Hydrocodone/Apap 5/325mg Tablet) 1 tab PO Q4HP PRN; Protocol PRN Reason: Per Pain Protocol Last Admin: 03/30/21 20:09 Dose: 1 tab Documented by: Dextrose (Dextrose 50% 50 Ml Vial) 0 ml IV UD PRN PRN Reason: Hypoglycemia Diagnostic Test (Pha) (Accu-Chek 1 Each Strip) 1 each FS [facility] Last Admin: 03/31/21 11:52 Dose: 1 each Documented by: Docusate Sodium (Docusate Sodium 100 Mg Capsule) 100 mg PO BID [facility] Last Admin: 03/31/21 08:50 Dose: 100 mg Documented by: Enoxaparin Sodium (Enoxaparin 40 Mg/0.4 Ml Syringe) 40 mg SQ DAILY [facility] Last Admin: 03/31/21 08:52 Dose: 40 mg Documented by: Glucose (Dextrose 31 Gm Oral.Susp) 15 gm PO PRN PRN PRN Reason: Hypoglycemia Ceftriaxone Sodium 2 gm/ (Dextrose) 50 mls @ 100 mls/hr IV Q24H [facility]; Protocol Last Admin: 03/31/21 09:11 Dose: 100 mls/hr Documented by: Gentamicin Sulfate 40 mg/Clindamycin Phosphate 300 mg/Sodium Chloride 503 mls @ 0 mls/hr IRR Q24H [facility] Last Admin: 03/31/21 13:48 Dose: 25 mls/hr Documented by: Insulin Human Lispro (Insulin Lispro 1 Unit/0.01 Ml Unit) 0 unit SQ ACHS [facility]; Protocol Last Admin: 03/31/21 11:50 Dose: 4 unit Documented by: Lisinopril (Lisinopril 20 Mg Tablet) 20 mg PO BID [facility] Last Admin: 03/31/21 08:50 Dose: 20 mg Documented by: Methocarbamol (Methocarbamol 750 Mg Tablet) 750 mg PO QID [facility] Last Admin: 03/31/21 08:50 Dose: 750 mg Documented by: Omeprazole (Omeprazole 20 Mg Capsule) 20 mg PO DAILY [facility] Last Admin: 03/31/21 08:50 Dose: 20 mg Documented by: Ondansetron HCl (Ondansetron 4 Mg/2 Ml Vial) 4 mg IV Q6HP PRN PRN Reason: Nausea And Vomiting Oxandrolone (Oxandrolone 10 Mg Tablet) 5 mg PO BID [facility] Last Admin: 03/31/21 08:50 Dose: 5 mg Documented by: Buprenorphine 8mg (Tab) 1 dose SL QID [facility] Last Admin: 03/31/21 09:07 Dose: 1 dose Documented by: Senna (Sennosides 1 Tablet) 2 tab PO HS [facility] Last Admin: 03/30/21 20:20 Dose: Not Given Documented by: Sodium Chloride (0.9 % Sodium Chloride 10 Ml Syringe) 10 ml IV Q8 [facility] Last Admin: 03/31/21 04:08 Dose: 10 ml Documented by: Zolpidem Tartrate (Zolpidem 5 Mg Tablet) 10 mg PO HSP PRN PRN Reason: Insomnia Last Admin: 03/30/21 20:10 Dose: 10 mg Documented by: A/P Narrative A/P Narrative: A: #Diabetic foot ulcer infection: s/p I&D (03/29/21) #Osteomyelitis of left calcaneus: 2/2 Streptococcus dysgalactiae / Staph aureus #Bacteremia 1/2 blood culture with Strep: #Resolving right shoulder pain: 2/2chronic arthritis -CT shoulder showed moderate acromioclavicular degeneration. patient not toleratent of MRI without sedation -s/p injection by orthopedic surgery #DM 2 complicated by peripheral neuropathy: -hemoglobin A1C 7.3 #Normocytic anemia: #Essential hypertension: on ACEI/HCTZ #Gout: #GERD: #Opioid use disorder on Suboxone: #Obesity: Plan: -Dr. Monahan following -Ceftriaxone 2 gm IV daily, flagyl addd for anaerobes, MRSA screen neg -Follow sentinel blood cultures, place PICC if no growth >48 hrs. -SSI for now, holding home metformin -Continue home lisinopril, buprenorphine -Holding home etodolac, HCTZ, and metformin for now -ppx: Lovenox SQ / home ppi CODE STATUS: Full *Disposition: The outpatient antibiotic will likely be Ceftriaxone 2 gm IV Q24 h rs for 6 weeks for calcaneal osteomyelitis. Will need a PICC when repeat blood cultures show no growth for 48-72 hours. Weekly labs (CBC/CMP/CRP) to be f/u by wound care or PCP. Time Spent With Patient Time: Total time spent is greater than 50% in coordination of care (as documented) at patient's floor/unit and/or counseling patient: QUALITY VTE Deep Vein Thrombosis/Pulmonary Embolism Present on Admission: No
[2021-03-31] MEDS ORDERED: metroNIDAZOLE 500 MG/100 ML BAG IV SCH (15:30)
[2021-03-31] MEDS: CLINDAMYCIN 900 MG in DEXTROSE 5% IN WATER 50 ML IV SCH ×2 (16:03→21:08)
[2021-03-31] MEDS: SENNOSIDES 1 TABLET PO SCH (19:47)
[2021-03-31] MEDS: HYDROcodone/APAP 5/325MG TABLET PO PRN (21:07)
[2021-03-31] MEDS: ZOLPIDEM 5 MG TABLET PO PRN (21:07)
[2021-04-01] MEDS: CLINDAMYCIN 900 MG in DEXTROSE 5% IN WATER 50 ML IV SCH ×3 (05:36→21:24)
[2021-04-01] MEDS: 0.9 % SODIUM CHLORIDE 10 ML SYRINGE IV SCH ×4 (05:36→21:24)
[2021-04-01] MEDS: INSULIN LISPRO 1 UNIT/0.01 ML UNIT SQ SCH ×4 (08:04→21:46)
--- NOTE | 2021-04-01 08:34 | Internal Med Progress Note ---
SUBJECTIVE Subjective Patient information: Note initiated : 04/01/21 at 8:32 am Service Date, if different from initiated Date: [] Patient: Sohail Romano 45 y/o M admitted on 03/28/21 for right shoulder pain, ulcer on left foot. Chief Complaint: [] Principal diagnosis: POD # 1. S/P Surgical debridement infected LEFT foot DFU with sepsis Interval history: Sohail Romano is a 45-year-old male with a history of type 2 diabetes mellitus, hypertension, gout, GERD, insomnia, opioid use disorder on sublingual buprenorphine who presented to the emergency department for shoulder pain that began spontaneously without recent trauma as well as a left heel wound. The patient has had this wound for quite some time and recently it has begun to drain purulent material and produce a foul odor. The shoulder pain is more acut e, he says that pain is aggravated most by movement to the point that he cannot move the shoulder without severe pain. In the emergency department, the patient had routine blood work which did not show any leukocytosis he does have a normocytic anemia that is new, chemistry panel was fairly unremarkable. An MRI of the patient's left foot was done without contrast, that showed increased signal throughout the posterior two thirds of the calcaneus compatible with osteomyelitis. There is a cutaneous ulcer of the posterior calcaneus with cellulitis in the intervening plantar fascia. Hospital medicine was asked to admit the patient for further management. 03/29 The patient had surgical debridement of the left heel wound and biopsy of the calcaneal bone today. 03/19 blood cultures growing gram positive cocci. Started Vancomycin IV and Zosyn. ECHO ordered. Waiting on culture results. CT scan of the right shoulder showed moderate acromioclavicular degeneration. 03/30 Blood cultures results reporting Beta strep and Alpha strep. Left foot surgical cultures growing Streptococcus dysgalactiae. Deescalated antibiotics to Ceftriaxone 2 gm IV Q24 hours. Repeated blood cultures, will need a PICC if repeat cultures do not grow any organism. ECHO did not identify any vegetations. Dr. Caceres considering a wound VAC. Orthopedic surgery injected the right AC joint with lidocaine and kenalog. 03/31 Awaiting sentinel blood cultures before placing PICC. Plan will be for the patient to go to the infusion center for antibiotics. Dr. Scott to evaluate the wound today and decide if wound VAC is needed. 04/01 No overnight event or new complaints. Surgical cultures of growing out anaerob es. Wound care. Awaiting final culture sensitivities. PICC placed 1 blood cultures negative for least 48 hours. Review of Systems: denies headache/fever/chills/nausea/vomiting/chest or abdominal pa in/cough/dyspnea/diarrhea. Otherwise see above. Constitutional Vitals: Vital Signs Temp Pulse Resp BP Pulse Ox 96.9 F L 70 16 116/82 98 04/01/21 03:20 04/01/21 03:20 04/01/21 03:20 04/01/21 03:20 04/01/21 03:20 Period Temp Pulse Resp BP Sys/Bello Pulse Ox Last 24 Hr 96.7 F-98.5 F 68-84 16-20 116-149/78-92 96-98 Intake and Output 03/31/21 04/01/21 04/01/21 21:59 05:59 13:59 Intake Total 1296 356 56 Output Total 650 600 Balance 646 -244 56 Weight 148.778 kg Intake & Output: Intake & Output 03/31/21 04/01/21 04/01/21 21:59 05:59 13:59 Intake Total 1296 356 56 Output Total 650 600 Balance 646 -244 56 Weight 148.778 kg Intake: IV 1056 56 56 Cleocin 900 mg In Dextrose 5% 56 56 56 in Water 50 ml @ 100 mls/hr IV Q8H [facility] Rx#:[id number] Lactated Ringers 1,000 ml @ 20 1000 mls/hr IV .Q24H [facility] Rx#: [id number] Oral 240 300 Output: Void Amount 650 600 Other: Meal Dinner Percent of Meal Consumed 75% Feeding Ability Independent Stool Size Moderate # Bowel Movements 1 Exam: General: Alert, Awake, No acute Distress, obese Eyes/N/T: EOMI, Head/Neck: neck supple, CV: RRR, No murmurs, Pulm: Clear b/l, no wheezing/rhonchi/rales Abd: soft, nontender, +BS x4 Ext: no clubbing/cyanosis, mild b/l LE edema Neuro: Alert, no focal deficits, moves all extremities, Skin: warm/dry OBJ DATA Labs CBC & Chem 7: 03/31/21 05:09 03/31/21 05:09 Labs: Abnormal Lab Results 03/31/21 03/31/21 03/31/21 10:07 05:09 05:09 RBC 4.03 L Hgb 10.5 L Hct 32.8 L Glucose 182 H Hemoglobin A1c C-Reactive Protein Prealbumin Vancomycin Trough < 4.0 L 03/30/21 03/29/21 05:08 05:19 RBC Hgb Hct Glucose Hemoglobin A1c 7.3 H 7.3 H C-Reactive Protein 7.00 H Prealbumin 12.1 L Vancomycin Trough Meds: Medications Acetaminophen (Acetaminophen 325 Mg Tablet) 650 mg PO Q6HP PRN; Protocol PRN Reason: Per Pain Protocol/Fever > 101 Hydrocodone Bitart/Acetaminophen (Hydrocodone/Apap 5/325mg Tablet) 1 tab PO Q4HP PRN; Protocol PRN Reason: Per Pain Protocol Last Admin: 03/31/21 21:07 Dose: 1 tab Documented by: Dextrose (Dextrose 50% 50 Ml Vial) 0 ml IV UD PRN PRN Reason: Hypoglycemia Diagnostic Test (Pha) (Accu-Chek 1 Each Strip) 1 each FS ACHS [facility] Last Admin: 04/01/21 08:04 Dose: 1 each Documented by: Docusate Sodium (Docusate Sodium 100 Mg Capsule) 100 mg PO BID [facility] Last Admin: 03/31/21 19:47 Dose: Not Given Documented by: Enoxaparin Sodium (Enoxaparin 40 Mg/0.4 Ml Syringe) 40 mg SQ DAILY [facility] Last Admin: 03/31/21 08:52 Dose: 40 mg Documented by: Glucose (Dextrose 31 Gm Oral.Susp) 15 gm PO PRN PRN PRN Reason: Hypoglycemia Ceftriaxone Sodium 2 gm/ (Dextrose) 50 mls @ 100 mls/hr IV Q24H [facility]; Protocol Last Infusion: 03/31/21 09:41 Dose: Infused Documented by: Gentamicin Sulfate 40 mg/Clindamycin Phosphate 300 mg/Sodium Chloride 503 mls @ 0 mls/hr IRR Q24H [facility] Last Admin: 03/31/21 13:48 Dose: 25 mls/hr Documented by: Clindamycin Phosphate 900 mg/ (Dextrose) 56 mls @ 100 mls/hr IV Q8H [facility] Stop: 04/02/21 08:34 Last Infusion: 04/01/21 06:10 Dose: Infused Documented by: Insulin Human Lispro (Insulin Lispro 1 Unit/0.01 Ml Unit) 0 unit SQ [facility]; Protocol Last Admin: 04/01/21 08:04 Dose: Not Given Documented by: Lisinopril (Lisinopril 20 Mg Tablet) 20 mg PO BID [facility] Last Admin: 03/31/21 21:08 Dose: 20 mg Documented by: Methocarbamol (Methocarbamol 750 Mg Tablet) 750 mg PO QID [facility] Last Admin: 03/31/21 21:07 Dose: 750 mg Documented by: Metronidazole (Metronidazole 500 Mg Tablet) 500 mg PO Q8 [facility] Omeprazole (Omeprazole 20 Mg Capsule) 20 mg PO DAILY [facility] Last Admin: 03/31/21 08:50 Dose: 20 mg Documented by: Ondansetron HCl (Ondansetron 4 Mg/2 Ml Vial) 4 mg IV Q6HP PRN PRN Reason: Nausea And Vomiting Oxandrolone (Oxandrolone 10 Mg Tablet) 5 mg PO BID [facility] Last Admin: 03/31/21 21:07 Dose: 5 mg Documented by: Buprenorphine 8mg (Tab) 1 dose SL QID [facility] Last Admin: 03/31/21 19:47 Dose: Not Given Documented by: Senna (Sennosides 1 Tablet) 2 tab PO HS [facility] Last Admin: 03/31/21 19:47 Dose: Not Given Documented by: Sodium Chloride (0.9 % Sodium Chloride 10 Ml Syringe) 10 ml IV Q8 [facility] Last Admin: 04/01/21 05:36 Dose: 10 ml Documented by: Zolpidem Tartrate (Zolpidem 5 Mg Tablet) 10 mg PO HSP PRN PRN Reason: Insomnia Last Admin: 03/31/21 21:07 Dose: 10 mg Documented by: A/P Narrative A/P Narrative: A: #Diabetic foot ulcer infection: s/p I&D (03/29/21) #Osteomyelitis of left calcaneus: 2/2 Streptococcus dysgalactiae/Staph aureus/Prevotella & Bacteroides #Bacteremia 1/2 blood culture with Strep: #Resolving right shoulder pain: 2/2chronic arthritis -CT shoulder showed moderate acromioclavicular degeneration. patient not toleratent of MRI without sedation -s/p injection by orthopedic surgery #DM 2 complicated by peripheral neuropathy: -hemoglobin A1C 7.3 #Normocytic anemia: #Essential hypertension: on ACEI/HCTZ #Gout: #GERD: #Opioid use disorder on Suboxone: #Obesity: Plan: -Dr. Monahan following -Ceftriaxone 2gm daily/flagyl addd for anaerobes, MRSA screen neg. 6-wk Abx course from debridement -Follow sentinel blood cultures, place PICC if no growth >48 hrs. -SSI for now, holding home metformin -Continue home lisinopril, buprenorphine -Holding home etodolac, HCTZ, and metformin for now -ppx: Lovenox SQ / home ppi CODE STATUS: Full *Disposition: The outpatient antibiotic will likely be Ceftriaxone 2 gm IV Q24 hrs for 6 weeks for calcaneal osteomyelitis. Will need a PICC when repeat blood cultures show no growth for 48-72 hours. Weekly labs (CBC/CMP/CRP) to be f/u by wound care or PCP. Time Spent With Patient Time: Total time spent is greater than 50% in coordination of care (as documented) at patient's floor/unit and/or counseling patient: QUALITY VTE Deep Vein Thrombosis/Pulmonary Embolism Present on Admission: No
[2021-04-01] MEDS: DOCUSATE SODIUM 100 MG CAPSULE PO SCH ×2 (08:35→21:22)
[2021-04-01] MEDS: METHOCARBAMOL 750 MG TABLET PO SCH ×4 (08:35→21:21)
[2021-04-01] MEDS: LISINOPRIL 20 MG TABLET PO SCH ×2 (08:35→21:23)
[2021-04-01] MEDS: OMEPRAZOLE 20 MG CAPSULE PO SCH (08:35)
[2021-04-01] MEDS: OXANDROLONE 10 MG TABLET PO SCH ×2 (08:36→21:22)
[2021-04-01] MEDS: ENOXAPARIN 40 MG/0.4 ML SYRINGE SQ SCH (08:37)
[2021-04-01] MEDS: BUPRENORPHINE 8MG TAB SL SCH ×4 (08:39→21:23)
[2021-04-01] MEDS: cefTRIAXone 2 GM in DEXTROSE 5% IN WATER 50 ML IV SCH (08:47)
[2021-04-01] MEDS: GENTAMICIN SULFATE 40 MG, CLINDAMYCIN 300 MG in SODIUM CHLORIDE IRRIG SOLUTION 500 ML IRR SCH (13:55)
--- NOTE | 2021-04-01 15:16 | General Surgery Progress Note ---
SUBJECTIVE Subjective Patient information: Note initiated : 04/01/21 at 3:11 pm Service Date, if different from initiated Date: [] Patient: Sohail Romano 45 y/o M admitted on 03/28/21 for right shoulder pain, ulcer on left foot. Chief Complaint: [] Principal diagnosis: POD # 1. S/P Surgical debridement infected LEFT foot DFU with sepsis Additional PMFSH (Level 3 Only): Doing well. Wants to get better. Wants to quit smoking for good. Constitutional Vitals: Vital Signs Temp Pulse Resp BP Pulse Ox 98.2 F 85 20 135/90 94 04/01/21 12:00 04/01/21 12:00 04/01/21 12:00 04/01/21 12:00 04/01/21 12:00 Period Temp Pulse Resp BP Sys/Bello Pulse Ox Last 24 Hr 96.9 F-98.5 F 68-85 16-20 116-136/78-90 94-99 Intake and Output 04/01/21 04/01/21 04/01/21 05:59 13:59 21:59 Intake Total 356 106 56 Output Total 600 Balance -244 106 56 Intake & Output: Intake & Output 04/01/21 04/01/21 04/01/21 05:59 13:59 21:59 Intake Total 356 106 56 Output Total 600 Balance -244 106 56 Intake: IV 56 106 56 Cleocin 900 mg In Dextrose 5% 56 56 56 in Water 50 ml @ 100 mls/hr IV Q8H [facility] Rx#:[id number] Rocephin 2 gm In Dextrose 5% in 50 Water 50 ml @ 100 mls/hr IV Q24H [facility] Rx#:[id number] Oral 300 Output: Void Amount 600 Exam: AVSS. No changes CM. L/E: Left foot toes PWD. Ankle FROM Dressings changed. Using roll about scooter. PICC line inserted. Wound c/s: Polymicrobial stone Strep / Staph/ Prevotella and Bacteroides Bone Biopsy results awaited. A/P Narrative A/P Narrative: Assessment: Satisfactory progress. Await bone biopsy results. POC reviewed with Courtney BLACKWELL Plan: Continue present treatment. Anticipate D/C planning after w/e Out patient f/u for continuity of care. Time Spent With Patient Time: Total time spent is greater than 50% in coordination of care (as documented) at patient's floor/unit and/or counseling patient: Total time spent with greater than 50% in coordination of care (as documented) at patient's floor/unit and/or counseling patient:: 25 - 35 minutes
[2021-04-01] MEDS ORDERED: 0.9 % SODIUM CHLORIDE 10 ML SYRINGE IV PRN (16:10)
--- NOTE | 2021-04-01 16:10 | Internal Med Progress Note ---
SUBJECTIVE Subjective Patient information: Note initiated : 04/01/21 at 4:09 pm Service Date, if different from initiated Date: [] Patient: Sohail Romano 45 y/o M admitted on 03/28/21 for right shoulder pain, ulcer on left foot. Chief Complaint: [] Principal diagnosis: POD # 1. S/P Surgical debridement infected LEFT foot DFU with sepsis Interval history: Sohail Romano is a 45-year-old male with a history of type 2 diabetes mellitus, hypertension, gout, GERD, insomnia, opioid use disorder on sublingual buprenorphine who presented to the emergency department for shoulder pain that began spontaneously without recent trauma as well as a left heel wound. The patient has had this wound for quite some time and recently it has begun to drain purulent material and produce a foul odor. The shoulder pain is more acut e, he says that pain is aggravated most by movement to the point that he cannot move the shoulder without severe pain. In the emergency department, the patient had routine blood work which did not show any leukocytosis he does have a normocytic anemia that is new, chemistry panel was fairly unremarkable. An MRI of the patient's left foot was done without contrast, that showed increased signal throughout the posterior two thirds of the calcaneus compatible with osteomyelitis. There is a cutaneous ulcer of the posterior calcaneus with cellulitis in the intervening plantar fascia. Hospital medicine was asked to admit the patient for further management. 03/29 The patient had surgical debridement of the left heel wound and biopsy of the calcaneal bone today. 03/19 blood cultures growing gram positive cocci. Started Vancomycin IV and Zosyn. ECHO ordered. Waiting on culture results. CT scan of the right shoulder showed moderate acromioclavicular degeneration. 03/30 Blood cultures results reporting Beta strep and Alpha strep. Left foot surgical cultures growing Streptococcus dysgalactiae. Deescalated antibiotics to Ceftriaxone 2 gm IV Q24 hours. Repeated blood cultures, will need a PICC if repeat cultures do not grow any organism. ECHO did not identify any vegetations. Dr. Caceres considering a wound VAC. Orthopedic surgery injected the right AC joint with lidocaine and kenalog. 03/31 Awaiting sentinel blood cultures before placing PICC. Plan will be for the patient to go to the infusion center for antibiotics. Dr. Scott to evaluate the wound today and decide if wound VAC is needed. 04/01 No overnight event or new complaints. Surgical cultures of growing out anaerob es. Wound care. Awaiting final culture sensitivities. PICC placed 1 blood cultures negative for least 48 hours. Review of Systems: denies headache/fever/chills/nausea/vomiting/chest or abdominal pa in/cough/dyspnea/diarrhea. Otherwise see above. Constitutional Vitals: Vital Signs Temp Pulse Resp BP Pulse Ox 98.2 F 85 20 135/90 94 04/01/21 12:00 04/01/21 12:00 04/01/21 12:00 04/01/21 12:00 04/01/21 12:00 Period Temp Pulse Resp BP Sys/Bello Pulse Ox Last 24 Hr 96.9 F-98.5 F 68-85 16-20 116-136/78-90 94-99 Intake and Output 04/01/21 04/01/21 04/01/21 05:59 13:59 21:59 Intake Total 356 106 56 Output Total 600 Balance -244 106 56 Intake & Output: Intake & Output 04/01/21 04/01/21 04/01/21 05:59 13:59 21:59 Intake Total 356 106 56 Output Total 600 Balance -244 106 56 Intake: IV 56 106 56 Cleocin 900 mg In Dextrose 5% 56 56 56 in Water 50 ml @ 100 mls/hr IV Q8H [facility] Rx#:[id number] Rocephin 2 gm In Dextrose 5% in 50 Water 50 ml @ 100 mls/hr IV Q24H [facility] Rx#:[id number] Oral 300 Output: Void Amount 600 Exam: General: Alert, Awake, No acute Distress, obese Eyes/N/T: EOMI, Head/Neck: neck supple, CV: RRR, No murmurs, Pulm: Clear b/l, no wheezing/rhonchi/rales Abd: soft, nontender, +BS x4 Ext: no clubbing/cyanosis, mild b/l LE edema Neuro: Alert, no focal deficits, moves all extremities, Skin: warm/dry OBJ DATA Labs CBC & Chem 7: 03/31/21 05:09 03/31/21 05:09 Labs: Abnormal Lab Results 03/31/21 03/31/21 03/31/21 10:07 05:09 05:09 RBC 4.03 L Hgb 10.5 L Hct 32.8 L Glucose 182 H Hemoglobin A1c C-Reactive Protein Prealbumin Vancomycin Trough < 4.0 L 03/30/21 05:08 RBC Hgb Hct Glucose Hemoglobin A1c 7.3 H C-Reactive Protein 7.00 H Prealbumin 12.1 L Vancomycin Trough Meds: Medications Acetaminophen (Acetaminophen 325 Mg Tablet) 650 mg PO Q6HP PRN; Protocol PRN Reason: Per Pain Protocol/Fever > 101 Hydrocodone Bitart/Acetaminophen (Hydrocodone/Apap 5/325mg Tablet) 1 tab PO Q4HP PRN; Protocol PRN Reason: Per Pain Protocol Last Admin: 03/31/21 21:07 Dose: 1 tab Documented by: Dextrose (Dextrose 50% 50 Ml Vial) 0 ml IV UD PRN PRN Reason: Hypoglycemia Diagnostic Test (Pha) (Accu-Chek 1 Each Strip) 1 each FS [facility] Last Admin: 04/01/21 11:11 Dose: 1 each Documented by: Docusate Sodium (Docusate Sodium 100 Mg Capsule) 100 mg PO BID [facility] Last Admin: 04/01/21 08:35 Dose: 100 mg Documented by: Enoxaparin Sodium (Enoxaparin 40 Mg/0.4 Ml Syringe) 40 mg SQ DAILY [facility] Last Admin: 04/01/21 08:37 Dose: 40 mg Documented by: Glucose (Dextrose 31 Gm Oral.Susp) 15 gm PO PRN PRN PRN Reason: Hypoglycemia Ceftriaxone Sodium 2 gm/ (Dextrose) 50 mls @ 100 mls/hr IV Q24H [facility]; Protocol Last Infusion: 04/01/21 09:34 Dose: Infused Documented by: Gentamicin Sulfate 40 mg/Clindamycin Phosphate 300 mg/Sodium Chloride 503 mls @ 0 mls/hr IRR Q24H [facility] Last Admin: 04/01/21 13:55 Dose: 1 mls/hr Documented by: Clindamycin Phosphate 900 mg/ (Dextrose) 56 mls @ 100 mls/hr IV Q8H [facility] Stop: 04/02/21 08:34 Last Infusion: 04/01/21 14:35 Dose: Infused Documented by: Insulin Human Lispro (Insulin Lispro 1 Unit/0.01 Ml Unit) 0 unit SQ [facility]; Protocol Last Admin: 04/01/21 11:16 Dose: 4 unit Documented by: Lisinopril (Lisinopril 20 Mg Tablet) 20 mg PO BID [facility] Last Admin: 04/01/21 08:35 Dose: 20 mg Documented by: Methocarbamol (Methocarbamol 750 Mg Tablet) 750 mg PO QID [facility] Last Admin: 04/01/21 14:01 Dose: 750 mg Documented by: Metronidazole (Metronidazole 500 Mg Tablet) 500 mg PO Q8 [facility] Omeprazole (Omeprazole 20 Mg Capsule) 20 mg PO DAILY [facility] Last Admin: 04/01/21 08:35 Dose: 20 mg Documented by: Ondansetron HCl (Ondansetron 4 Mg/2 Ml Vial) 4 mg IV Q6HP PRN PRN Reason: Nausea And Vomiting Oxandrolone (Oxandrolone 10 Mg Tablet) 5 mg PO BID [facility] Last Admin: 04/01/21 08:36 Dose: 5 mg Documented by: Buprenorphine 8mg (Tab) 1 dose SL QID [facility] Last Admin: 04/01/21 13:35 Dose: 1 dose Documented by: Senna (Sennosides 1 Tablet) 2 tab PO HS [facility] Last Admin: 03/31/21 19:47 Dose: Not Given Documented by: Sodium Chloride (0.9 % Sodium Chloride 10 Ml Syringe) 10 ml IV Q8 [facility] Last Admin: 04/01/21 14:43 Dose: 10 ml Documented by: Zolpidem Tartrate (Zolpidem 5 Mg Tablet) 10 mg PO HSP PRN PRN Reason: Insomnia Last Admin: 03/31/21 21:07 Dose: 10 mg Documented by: A/P Time Spent With Patient Time: Total time spent is greater than 50% in coordination of care (as documented) at patient's floor/unit and/or counseling patient: QUALITY VTE Deep Vein Thrombosis/Pulmonary Embolism Present on Admission: No
--- NOTE | 2021-04-01 16:15 | Discharge Summary ---
Discharge Provider Provider Patient information: Note initiated : 04/01/21 at 4:10 pm Service Date, if different from initiated Date: [] Patient: Sohail Romano 45 y/o M admitted on 03/28/21 for right shoulder pain, ulcer on left foot. Chief Complaint: [] Date of admission: 03/28/21 19:10 Discharge date: 04/02/21 Primary care physician: Leonid Page MD Consults: 03/28/21 Consult to Physician [CONS] Stat Comment: Consulting Provider: Adam Aguirre Reason For Exam: Physician to Consult 03/28/21 17:04 Consult to Physician [CONS] Stat Comment: Consulting Provider: Antoni Chopra Reason For Exam: Physician to Consult 03/28/21 19:18 Consult to Physician [CONS] Routine Comment: Diabetic foot ulcer Consulting Provider: Antoni Chopra Reason For Exam: Physician to Consult 03/29/21 08:41 Consult to Physician [CONS] Routine Comment: Pain RIGHT shoulder. Consulting Provider: [facility] Reason For Exam: Physician to Consult Discharge Meds Discharge Medications Home Medications colchicine 0.6 mg tablet (Colcrys) 0.6 mg PO QDAY PRN 01/12/19 [History Confirmed 03/28/21 Last Taken Unknown] omeprazole 20 mg tablet,delayed release 20 mg PO 0700 01/12/19 [History Confirmed 03/30/21 Last Taken 03/27/21 18:00] buprenorphine HCl 8 mg sublingual tablet 8 mg SUBLINGUAL QID #120 tab 03/06/21 [Rx Confirmed 03/28/21 Last Taken 03/28/21 18:30] etodolac 400 mg tablet 400 mg PO BID 14 Days #28 tab 03/21/21 [Rx Confirmed 03/28/21 Last Taken 03/28/21 08:00] hydrochlorothiazide 25 mg tablet 25 mg PO DAILY 03/28/21 [History Confirmed 03/28/21 Last Taken 03/28/21 09:00] lisinopril 20 mg tablet 20 mg PO BID 03/28/21 [History Confirmed 03/28/21 Last Taken 03/28/21 09:00] metformin 500 mg tablet,extended release 24 hr 1,000 mg PO ACS 03/28/21 [History Confirmed 03/28/21 Last Taken 03/27/21 17:00] methocarbamol 750 mg tablet 750 mg PO QID 03/28/21 [History Confirmed 03/28/21 Last Taken 03/28/21 08:00] zolpidem 10 mg tablet (Ambien) 10 mg PO QHS 03/28/21 [History Confirmed 03/28/21 Last Taken 03/27/21 21:00] ceftriaxone 2 gram intravenous solution 2 g IV Q24H #37 ea 04/01/21 [Rx Last Taken Unknown] metronidazole 500 mg tablet 500 mg PO TID #84 tab 04/01/21 [Rx Last Taken Unknown] COURSE Hospital Course Hospital course: Principal diagnosis: POD # 1. S/P Surgical debridement infected LEFT foot DFU with sepsis Interval history: Sohail Romano is a 45-year-old male with a history of type 2 diabetes mellitus, hypertension, gout, GERD, insomnia, opioid use disorder on sublingual buprenorphine who presented to the emergency department for shoulder pain that began spontaneously without recent trauma as well as a left heel wound. The patient has had this wound for quite some time and recently it has begun to drain purulent material and produce a foul odor. The shoulder pain is more acute, he says that pain is aggravated most by movement to the point that he cannot move the shoulder without severe pain. In the emergency department, the patient had routine blood work which did not show any leukocytosis he does have a normocytic anemia that is new, chemistry panel was fairly unremarkable. An MRI of the patient's left foot was done without contrast, that showed increased signal throughout the posterior two thirds of the calcaneus compatible with osteomyelitis. There is a cutaneous ulcer of the posterior calcaneus with cellulitis in the intervening plantar fascia. Hospital medicine was asked to admit the patient for further management. 03/29 The patient had surgical debridement of the left heel wound and biopsy of the calcaneal bone today. 03/19 blood cultures growing gram positive cocci. Started Vancomycin IV and Zosyn. ECHO ordered. Waiting on culture results. CT scan of the right shoulder showed moderate acromioclavicular degeneration. 03/30 Blood cultures results reporting Beta strep and Alpha strep. Left foot surgical cultures growing Streptococcus dysgalactiae. Deescalated antibiotics to Ceftriaxone 2 gm IV Q24 hours. Repeated blood cultures, will need a PICC if repeat cultures do not grow any organism. ECHO did not identify any vegetations. Dr. Caceres considering a wound VAC. Orthopedic surgery injected the right AC joint with lidocaine and kenalog. 03/31 Awaiting sentinel blood cultures before placing PICC. Plan will be for the patient to go to the infusion center for antibiotics. Dr. Scott to evaluate the wound today and decide if wound VAC is needed. 04/01 No overnight event or new complaints. Surgical cultures of growing out anaerobes. Wound care. Awaiting final culture sensitivities. PICC placed 1 blood cultures negative for least 48 hours. 04/02 Feeling well. Wanted to go home. Awaiting PICC placement. A: #Diabetic foot ulcer infection: s/p I&D (03/29/21) #Osteomyelitis of left calcaneus: 2/2Streptococcus dysgalactiae/MSSA/Prevotella & Bacteroides #Bacteremia 03/19 blood culture withStrep: #Resolving right shoulder pain: 2/2chronic arthritis -s/p injection by orthopedic surgery #DM 2 complicated by peripheral neuropathy: -hemoglobin A1C 7.3 #Normocytic anemia: #Essential hypertension: on ACEI/HCTZ #Gout: #GERD: #Opioid use disorder on Suboxone: #Obesity: Plan: -f/u with Dr. Chopra & PCP -IV Ceftriaxone 2gm daily and PO flagyl until 05/10/2021. -PCP/wound care to f/u weekly cbc/cmp/crp/esr while on IV abx. Discharge diagnosis: Diabetic foot ulcer infection left calcaneus osteomyelitis bacteremia shoul Secondary discharge diagnosis: Shoulder arthritis diabetes anemia hypertension gout GERD obesity opioid use Time Spent with Patient Time attestation: Total time spent providing and/or coordinating discharge services: Time spent: Greater than 30 minutes EXAM Constitutional Vitals: Temp Pulse Resp BP Pulse Ox 98.2 F 85 20 135/90 94 04/01/21 12:00 04/01/21 12:00 04/01/21 12:00 04/01/21 12:00 04/01/21 12:00 Discharge Data Data Completed and Pending Labs on day of discharge: Preliminary micro results at discharge 03/28/21 15:24 Blood Culture - Preliminary Blood Streptococcus dysgalactiae Streptococcus mitis 03/28/21 15:34 Blood Culture - Preliminary Blood 03/30/21 15:14 Blood Culture - Preliminary Blood 03/30/21 15:05 Blood Culture - Preliminary Blood 03/29/21 13:07 Gram Stain - Preliminary Foot - Left Anaerobic Culture - Preliminary Bacteroi caccae Prevotella melaninogenica Discharge Plan Patient/Caregiver Discharge Instructions Activity: increase activity as tolerated Diet: Consistent Carbohydrate Activity Restrictions/Additional Instructions: Weekly CBC/CMP/CRP/ESR while on IV antibiotics to be sent to Dr. Chopra and PCP. PICC line care IV abx to finish on 05/10/2021 then d/c PICC line. Prescriptions: New metronidazole 500 mg tablet 500 mg PO TID Qty: 84 0RF ceftriaxone 2 gram recon soln 2 g IV Q24H Qty: 37 0RF Continued omeprazole 20 mg tablet,delayed release (DR/EC) 20 mg PO 0700 0RF colchicine [Colcrys] 0.6 mg tablet 0.6 mg PO QDAY PRN (Reason: GOUT) 0RF Hold Instructions: Doctor's Order etodolac 400 mg tablet 400 mg PO BID 14 Days Qty: 28 0RF buprenorphine HCl 8 mg tablet, sublingual 8 mg SUBLINGUAL QID Qty: 120 0RF lisinopril 20 mg tablet 20 mg PO BID 0RF Rx Instructions: TAKE ONE TABLET BY MOUTH TWICE DAILY methocarbamol 750 mg tablet 750 mg PO QID 0RF hydrochlorothiazide 25 mg tablet 25 mg PO DAILY 0RF Rx Instructions: TAKE ONE TABLET BY MOUTH EVERY DAY zolpidem [Ambien] 10 mg tablet 10 mg PO QHS 0RF metformin 500 mg tablet extended release 24 hr 1,000 mg PO ACS 0RF Rx Instructions: TAKE TWO TABLETS BY MOUTH IN THE EVENING. Follow Up Plan Follow up with: Leonid Page MD [Primary Care Provider] - Antoni Chopra MD [Physician] - Patient Disposition: Home, Self-Care Prognosis: Fair Overall status at discharge: patient is progressing back to baseline Discharge Orders: Discharge Order (Routine); Ordered 04/02/21 Ordered By: Chadd ANAYA VTE Deep Vein Thrombosis/Pulmonary Embolism Present on Admission: No
[2021-04-01] MEDS: HYDROcodone/APAP 5/325MG TABLET PO PRN (21:21)
[2021-04-01] MEDS: SENNOSIDES 1 TABLET PO SCH (21:23)
[2021-04-01] MEDS: ZOLPIDEM 5 MG TABLET PO PRN (21:24)
[2021-04-02] MEDS: CLINDAMYCIN 900 MG in DEXTROSE 5% IN WATER 50 ML IV SCH (05:14)
[2021-04-02] MEDS: 0.9 % SODIUM CHLORIDE 10 ML SYRINGE IV SCH ×3 (05:15→13:58)
[2021-04-02] MEDS: INSULIN LISPRO 1 UNIT/0.01 ML UNIT SQ SCH ×2 (07:16→13:08)
--- NOTE | 2021-04-02 08:28 | Internal Med Progress Note ---
SUBJECTIVE Subjective Patient information: Note initiated : 04/02/21 at 8:26 am Service Date, if different from initiated Date: [] Patient: Sohail Romano 45 y/o M admitted on 03/28/21 for right shoulder pain, ulcer on left foot. Chief Complaint: [] Principal diagnosis: POD # 1. S/P Surgical debridement infected LEFT foot DFU with sepsis Interval history: Sohail Romano is a 45-year-old male with a history of type 2 diabetes mellitus, hypertension, gout, GERD, insomnia, opioid use disorder on sublingual buprenorphine who presented to the emergency department for shoulder pain that began spontaneously without recent trauma as well as a left heel wound. The patient has had this wound for quite some time and recently it has begun to drain purulent material and produce a foul odor. The shoulder pain is more acut e, he says that pain is aggravated most by movement to the point that he cannot move the shoulder without severe pain. In the emergency department, the patient had routine blood work which did not show any leukocytosis he does have a normocytic anemia that is new, chemistry panel was fairly unremarkable. An MRI of the patient's left foot was done without contrast, that showed increased signal throughout the posterior two thirds of the calcaneus compatible with osteomyelitis. There is a cutaneous ulcer of the posterior calcaneus with cellulitis in the intervening plantar fascia. Hospital medicine was asked to admit the patient for further management. 03/29 The patient had surgical debridement of the left heel wound and biopsy of the calcaneal bone today. 03/19 blood cultures growing gram positive cocci. Started Vancomycin IV and Zosyn. ECHO ordered. Waiting on culture results. CT scan of the right shoulder showed moderate acromioclavicular degeneration. 03/30 Blood cultures results reporting Beta strep and Alpha strep. Left foot surgical cultures growing Streptococcus dysgalactiae. Deescalated antibiotics to Ceftriaxone 2 gm IV Q24 hours. Repeated blood cultures, will need a PICC if repeat cultures do not grow any organism. ECHO did not identify any vegetations. Dr. Caceres considering a wound VAC. Orthopedic surgery injected the right AC joint with lidocaine and kenalog. 03/31 Awaiting sentinel blood cultures before placing PICC. Plan will be for the patient to go to the infusion center for antibiotics. Dr. Scott to evaluate the wound today and decide if wound VAC is needed. 04/01 No overnight event or new complaints. Surgical cultures of growing out anaerob es. Wound care. Awaiting final culture sensitivities. PICC placed 1 blood cultures negative for least 48 hours. 04/02 Feeling well. Wanted to go home. Awaiting PICC placement. Review of Systems: denies headache/fever/chills/nausea/vomiting/chest or abdominal pain/cough/dyspnea/diarrhea. Otherwise see above. Constitutional Vitals: Vital Signs Temp Pulse Resp BP Pulse Ox 97.8 F 60 16 138/90 97 04/02/21 06:54 04/02/21 07:04 04/02/21 06:54 04/02/21 06:54 04/02/21 06:54 Period Temp Pulse Resp BP Sys/Bello Pulse Ox Last 24 Hr 96.7 F-98.2 F 60-85 16-20 126-157/73-99 94-99 Intake and Output 04/01/21 04/02/21 04/02/21 21:59 05:59 13:59 Intake Total 1116 812 Output Total 1250 950 Balance -134 -138 Weight 150.139 kg Intake & Output: Intake & Output 04/01/21 04/02/21 04/02/21 21:59 05:59 13:59 Intake Total 1116 812 Output Total 1250 950 Balance -134 -138 Weight 150.139 kg Intake: IV 56 112 Cleocin 900 mg In Dextrose 5% 56 112 in Water 50 ml @ 100 mls/hr IV Q8H [facility] Rx#:[id number] Oral 1060 700 Output: Void Amount 1250 950 Other: Meal Lunch Percent of Meal Consumed 100% Urine Appearance Clear Cloudy Urine Color Dark Yellow Bright Yellow Urine Odor Normal Exam: General: Alert, Awake, No acute Distress, obese Eyes/N/T: EOMI, Head/Neck: neck supple, CV: RRR, No murmurs, Pulm: Clear b/l, no wheezing/rhonchi/rales Abd: soft, nontender, +BS x4 Ext: no clubbing/cyanosis, mild b/l LE edema Neuro: Alert, no focal deficits, moves all extremities, Skin: warm/dry OBJ DATA Labs CBC & Chem 7: 03/31/21 05:09 03/31/21 05:09 Labs: Abnormal Lab Results 03/31/21 03/31/2122 10:07 05:09 05:09 RBC 4.03 L Hgb 10.5 L Hct 32.8 L Glucose 182 H Vancomycin Trough < 4.0 L Meds: Medications Acetaminophen (Acetaminophen 325 Mg Tablet) 650 mg PO Q6HP PRN; Protocol PRN Reason: Per Pain Protocol/Fever > 101 Hydrocodone Bitart/Acetaminophen (Hydrocodone/Apap 5/325mg Tablet) 1 tab PO Q4HP PRN; Protocol PRN Reason: Per Pain Protocol Last Admin: 04/01/21 21:21 Dose: 1 tab Documented by: Dextrose (Dextrose 50% 50 Ml Vial) 0 ml IV UD PRN PRN Reason: Hypoglycemia Diagnostic Test (Pha) (Accu-Chek 1 Each Strip) 1 each FS [facility] Last Admin: 04/02/21 06:59 Dose: 1 each Documented by: Docusate Sodium (Docusate Sodium 100 Mg Capsule) 100 mg PO BID [facility] Last Admin: 04/01/21 21:22 Dose: Not Given Documented by: Enoxaparin Sodium (Enoxaparin 40 Mg/0.4 Ml Syringe) 40 mg SQ DAILY [facility] Last Admin: 04/01/21 08:37 Dose: 40 mg Documented by: Glucose (Dextrose 31 Gm Oral.Susp) 15 gm PO PRN PRN PRN Reason: Hypoglycemia Heparin Sodium (Porcine) (Heparin Flush 10 Units/Ml 5 Ml Syringe) 2 ml IV Q12 [facility] Last Admin: 04/01/21 21:22 Dose: Not Given Documented by: Ceftriaxone Sodium 2 gm/ (Dextrose) 50 mls @ 100 mls/hr IV Q24H [facility]; Protocol Last Infusion: 04/01/21 09:34 Dose: Infused Documented by: Gentamicin Sulfate 40 mg/Clindamycin Phosphate 300 mg/Sodium Chloride 503 mls @ 0 mls/hr IRR Q24H [facility] Last Admin: 04/01/21 13:55 Dose: 1 mls/hr Documented by: Clindamycin Phosphate 900 mg/ (Dextrose) 56 mls @ 100 mls/hr IV Q8H [facility] Stop: 04/02/21 08:34 Last Infusion: 04/02/21 05:49 Dose: Infused Documented by: Insulin Human Lispro (Insulin Lispro 1 Unit/0.01 Ml Unit) 0 unit SQ [facility]; Protocol Last Admin: 04/02/21 07:16 Dose: Not Given Documented by: Lisinopril (Lisinopril 20 Mg Tablet) 20 mg PO BID [facility] Last Admin: 04/01/21 21:23 Dose: 20 mg Documented by: Methocarbamol (Methocarbamol 750 Mg Tablet) 750 mg PO QID [facility] Last Admin: 04/01/21 21:21 Dose: 750 mg Documented by: Metronidazole (Metronidazole 500 Mg Tablet) 500 mg PO Q8 [facility] Omeprazole (Omeprazole 20 Mg Capsule) 20 mg PO DAILY [facility] Last Admin: 04/01/21 08:35 Dose: 20 mg Documented by: Ondansetron HCl (Ondansetron 4 Mg/2 Ml Vial) 4 mg IV Q6HP PRN PRN Reason: Nausea And Vomiting Oxandrolone (Oxandrolone 10 Mg Tablet) 5 mg PO BID [facility] Last Admin: 04/01/21 21:22 Dose: 5 mg Documented by: Buprenorphine 8mg (Tab) 1 dose SL QID [facility] Last Admin: 04/01/21 21:23 Dose: Not Given Documented by: Senna (Sennosides 1 Tablet) 2 tab PO HS [facility] Last Admin: 04/01/21 21:23 Dose: Not Given Documented by: Sodium Chloride (0.9 % Sodium Chloride 10 Ml Syringe) 10 ml IV Q8 [facility] Last Admin: 04/02/21 05:15 Dose: 10 ml Documented by: Sodium Chloride (0.9 % Sodium Chloride 10 Ml Syringe) 10 ml IV UD PRN PRN Reason: FLUSH Sodium Chloride (0.9 % Sodium Chloride 10 Ml Syringe) 10 ml IV Q12 [facility] Last Admin: 04/01/21 21:23 Dose: Not Given Documented by: Zolpidem Tartrate (Zolpidem 5 Mg Tablet) 10 mg PO HSP PRN PRN Reason: Insomnia Last Admin: 04/01/21 21:24 Dose: 10 mg Documented by: A/P Narrative A/P Narrative: A: #Diabetic foot ulcer infection: s/p I&D (03/29/21) #Osteomyelitis of left calcaneus: 2/2Streptococcus dysgalactiae/MSSA/Prevotella & Bacteroides #Bacteremia 1/2 blood culture withStrep: #Resolving right shoulder pain: 2/2chronic arthritis -CT shoulder showed moderate acromioclavicular degeneration. patient not toleratent of MRI without sedation -s/p injection by orthopedic surgery #DM 2 complicated by peripheral neuropathy: -hemoglobin A1C 7.3 #Normocytic anemia: #Essential hypertension: on ACEI/HCTZ #Gout: #GERD: #Opioid use disorder on Suboxone: #Obesity: Plan: -Dr. Monahan following -IV Ceftriaxone 2gm daily and PO flagyl until 05/10/2021 -PCP/wound care to f/u weekly cbc/cmp/crp/esr while on IV abx. -picc ordered -SSI for now, holding home metformin -Continue home lisinopril, buprenorphine -Holding home etodolac, HCTZ, and metformin for now -ppx: Lovenox SQ / home ppi Time Spent With Patient Time: Total time spent is greater than 50% in coordination of care (as documented) at patient's floor/unit and/or counseling patient: QUALITY VTE Deep Vein Thrombosis/Pulmonary Embolism Present on Admission: No
[2021-04-02] MEDS: OMEPRAZOLE 20 MG CAPSULE PO SCH (09:10)
[2021-04-02] MEDS: OXANDROLONE 10 MG TABLET PO SCH (09:10)
[2021-04-02] MEDS: METHOCARBAMOL 750 MG TABLET PO SCH ×2 (09:11→13:13)
[2021-04-02] MEDS: DOCUSATE SODIUM 100 MG CAPSULE PO SCH (09:11)
[2021-04-02] MEDS: LISINOPRIL 20 MG TABLET PO SCH (09:11)
[2021-04-02] MEDS: BUPRENORPHINE 8MG TAB SL SCH ×2 (09:13→13:09)
[2021-04-02] MEDS: cefTRIAXone 2 GM in DEXTROSE 5% IN WATER 50 ML IV SCH (09:13)
[2021-04-02] MEDS: ENOXAPARIN 40 MG/0.4 ML SYRINGE SQ SCH (09:13)
[2021-04-02] MEDS: GENTAMICIN SULFATE 40 MG, CLINDAMYCIN 300 MG in SODIUM CHLORIDE IRRIG SOLUTION 500 ML IRR SCH (13:14)
[2021-04-02] MEDS ORDERED: metroNIDAZOLE 500 MG TABLET PO SCH (14:00)
--- NOTE | 2021-04-02 14:01 | XRay Report ---
CLINICAL INFORMATION: PICC placement COMPARISON: 11/17/2019 TECHNIQUE: Portable FINDINGS: The heart size, mediastinum and pulmonary vessels are unremarkable. PICC line tip overlies the SVC near the right atrial junction. The lungs are clear. There are no effusions. The bones and soft tissues are within normal limits. IMPRESSION: PICC in satisfactory position. No acute disease. Interpreted and Authenticated by: Martínez Bowman 04/02/21
== END 2021-04-02 15:30 | disposition home or self-care (01) | DRG 629 ==
LOC: ED 11:29 → MEDSUR 19:10
PROVIDERS: ADMIT Internal Medicine; ATTEND Internal Medicine

== ENCOUNTER 2021-09-25 08:29 | Inpatient (IN) ==
[2021-09-25] MEDS ORDERED: CEFEPIME 1 GM VIAL IV ONE (09:03)
[2021-09-25] MEDS ORDERED: VANCOMYCIN 2,000 MG in 0.9 % SODIUM CHLORIDE 500 ML IV ONE (09:03)
--- NOTE | 2021-09-25 09:08 | Emergency Department Note ---
HPI General Chief complaint: Extremity Injury, Lower Stated complaint: Lt foot wound, post amputation Time Seen by Provider: 09/25/21 08:52 Source: patient Mode of arrival: ambulatory History of Present Illness HPI Narrative: Narrative: 46-year-old male with a past medical history of type 2 diabetes, left calcaneal osteomyelitis presents to the emergency department with worsening left calcaneus foot ulcer and wound. He has been following with podiatry, Dr. Ortiz. Patient reports today he was having his wound change and a piece of bone fell out. He reports foul-smelling odor. He denies any fevers or chills. He states that he was treated for osteomyelitis and had operative intervention to the affected ulcer in March and was on a course of IV antibiotics. He has not been on any IV antibiotics recently. Related Data Home Medications Medication Instructions Recorded Confirmed omeprazole 20 mg tablet,delayed 20 mg PO 0700 01/12/19 09/25/21 release zolpidem 10 mg tablet (Ambien) 10 mg PO QHS PRN Sleep 03/28/21 09/25/21 metformin 500 mg tablet,extended 1,500 mg PO HS 09/25/21 09/25/21 release 24 hr Previous Rx's Medication Instructions Recorded hydrochlorothiazide 25 mg tablet 25 mg PO DAILY #90 tabs 07/11/21 lisinopril 20 mg tablet 20 mg PO BID #180 tabs 07/11/21 buprenorphine HCl 8 mg sublingual 8 mg sublingual QID Opioid Use 08/29/21 tablet Disorder #120 tabs Allergies Allergy/AdvReac Type Severity Reaction Status Date / Time No Known Drug Allergies Allergy Verified 09/25/21 08:37 Review of Systems ROS ROS Narrative: Narrative: All systems ED: reviewed and negative except as stated. PFSH Narrative Patient History Narrative: Narrative: Medical/Surgical/Family History All Active Problems (Updated 09/26/21 @ 18:23 by Juan Hdez MD) Osteomyelitis (Acute) Diabetic foot ulcer (Acute) Peripheral neuropathy (Acute) Brittle diabetes mellitus (Acute) Opioid dependence in remission (Chronic) Bleeding from wound (Acute) Diabetic foot ulcer with osteomyelitis (Acute) Diabetic peripheral neuropathy associated with type 2 diabetes mellitus (Acute) Osteomyelitis (Acute) Right shoulder pain (Acute) Insomnia (Chronic) Nausea & vomiting (Acute) Diabetes mellitus (Chronic) Fatigue (Acute) Staph infection (Acute) Cellulitis (Acute) Encounter for monitoring of patient compliance in drug treatment program (Acute) DM w/o complication type II (Acute) Hypertension (Chronic) Gout (Chronic) Family history unremarkable (Acute) Medical History (Updated 09/26/21 @ 18:23 by Juan Hdez MD) Anxiety Chronic gout Dental caries, unspecified Diabetes mellitus Diabetic foot ulcer Family history unremarkable Fatigue Hypertension Insomnia Low back pain syndrome Nausea & vomiting Opioid dependence, in remission Opioid dependence, uncomplicated Psoriatic arthritis Situational anxiety Staph infection Type 2 diabetes mellitus without complications Surgical History No history of previous surgery Family History Other No pertinent family history Social History Smoking Status: Former smoker Alcohol Intake Frequency: does not drink Substance Use: does not use Exam Narrative Narrative: Narrative: Vital signs noted General: Awake. Alert. No distress. HEENT: NCAT PERRL EOMI. No conjunctivitis. Membranes moist. Neck: Supple, trachea midline Cardiovascular: RRR. No murmur. No rubs. No gallops. Respiratory: No respiratory distress. Breath sounds equal. Lungs clear. Gastrointestinal: Soft. No tenderness Musculoskeletal: Left calcaneal ulcer Skin: Left calcaneal ulcer is malodorous, there is some purulence there is exposed bone that is loosely in place Neurologic: Alert and oriented x3 moves all extremities equally and fully, sp eech is fluent face is symmetric Course Vital Signs Vital signs: Vital Signs Temperature 97.0 F 09/25/21 08:34 Pulse Rate 107 H 09/25/21 08:34 Respiratory Rate 16 09/25/21 08:34 Blood Pressure 164/90 09/25/21 08:34 Pulse Oximetry (%) 99 09/25/21 08:34 Oxygen Delivery Method 09/25/21 08:34 Temperature 98.8 F 09/26/21 16:00 Pulse Rate 106 H 09/26/21 16:00 Respiratory Rate 18 09/26/21 16:00 Blood Pressure 132/73 09/26/21 16:00 Pulse Oximetry (%) 93 09/26/21 16:00 Oxygen Delivery Method 09/26/21 16:00 Oxygen Flow Rate (L/min) 1 09/26/21 03:04 MDM MDM Narrative Medical decision making narrative: Narrative: Patient presents with worsening left calcaneus wound. He has been treated for osteomyelitis and had prior surgical intervention by podiatry. Patient's wound does probe down to the wound there is loose calcaneal bone that is visualized on examination. I have spoke with patient's data librarian who recommends orthopedic referral for BKA. Patient's wound does appear acutely infected he has elevated inflammatory markers he has soft tissue gas on his x-ray. Patient was covered empirically wound and blood cultures were obtained. Spoke with Dr. Ellison who plans on BKA. He will admit patient with hospitalist consulting. Lab Data Result diagrams: 09/26/21 07:16 09/26/21 07:16 Labs: Lab Results 09/25/21 09/25/21 09/25/21 Range/Units 09:14 09:14 09:14 WBC 8.0 (4.5-11.0) K/mcL RBC 3.56 L (4.63-6.08) M/mcL Hgb 8.5 L (13.7-17.5) g/dL Hct 28.2 L (40.1-51.0) % MCV 79.2 L (80.0-100.0) fL MCH 23.9 L (26.0-34.0) pg MCHC 30.1 L (31.0-36.0) g/dL RDW 15.8 H (11.5-14.5) % Plt Count 310 (140-440) K/mcL MPV 9.6 (7.4-10.4) fL Immature Gran % (Auto) 1.4 H (0.0-0.5) % Neut % (Auto) 80.9 H (38.0-78.0) % Lymph % (Auto) 11.4 L (15.5-49.0) % Wilkes % (Auto) 6.0 (1.0-12.0) % Eos % (Auto) 0.1 (0.0-7.0) % Baso % (Auto) 0.2 (0.0-2.0) % Lymph # (Auto) 0.92 L (1.50-4.80) K/mcL Wilkes # (Auto) 0.48 (0.10-0.90) K/mcL Eos # (Auto) 0.01 (0.00-0.70) K/mcL Baso # (Auto) 0.02 (0.00-0.30) K/mcL Immature Gran # 0.11 H (0.00-0.05) K/mcl Absolute Neutrophils 6.61 (1.80-8.00) K/mcL ESR 80 H (0-15) mm/hr VBG Lactic Acid (0.5-2.0) mmol/L Sodium 131 L (133-145) mmol/L Potassium 3.0 L (3.3-5.1) mmol/L Chloride 88 L (96-108) mmol/L Carbon Dioxide 27 (22-30) mmol/L Anion Gap 16.0 (8.0-16.0) BUN 6 (6-20) mg/dL Creatinine 0.7 (0.7-1.2) mg/dL GFR Calculation 113 Glucose 343 H (70-105) mg/dL Hemoglobin A1c 10.1 H (4.0-6.0) % Hgb Estim Average Glucose 243 mg/dL Calcium 9.1 (8.6-10.4) mg/dL Total Bilirubin 0.4 (0.1-1.0) mg/dL AST 7 (<40) U/L ALT < 5 (<40) U/L Alkaline Phosphatase 122 H (39-117) U/L C-Reactive Protein 14.60 H (0.03-0.80) mg/dL Total Protein 7.7 (5.9-8.4) gm/dL Albumin 2.8 L (3.2-5.2) gm/dL Globulin 4.9 H (2.2-3.7) gm/dL Albumin/Globulin Ratio 0.6 L (1.0-2.3) Triglycerides 147 (<150) mg/dL Cholesterol 131 (<200) mg/dL LDL Cholesterol, Calc 79 (<100) mg/dL Non-HDL Cholesterol 108 (<130) mg/dL HDL Cholesterol 23 L (>40) mg/dL 09/25/21 09/26/21 09/26/21 Range/Units 09:22 07:16 07:16 WBC 7.2 (4.5-11.0) K/mcL RBC 3.05 L (4.63-6.08) M/mcL Hgb 7.2 L (13.7-17.5) g/dL Hct 24.1 L (40.1-51.0) % MCV 79.0 L (80.0-100.0) fL MCH 23.6 L (26.0-34.0) pg MCHC 29.9 L (31.0-36.0) g/dL RDW 15.9 H (11.5-14.5) % Plt Count 335 (140-440) K/mcL MPV 9.2 (7.4-10.4) fL Immature Gran % (Auto) 2.9 H (0.0-0.5) % Neut % (Auto) 80.3 H (38.0-78.0) % Lymph % (Auto) 12.8 L (15.5-49.0) % Wilkes % (Auto) 4.0 (1.0-12.0) % Eos % (Auto) 0 (0.0-7.0) % Baso % (Auto) 0 (0.0-2.0) % Lymph # (Auto) 0.92 L (1.50-4.80) K/mcL Wilkes # (Auto) 0.29 (0.10-0.90) K/mcL Eos # (Auto) 0 (0.00-0.70) K/mcL Baso # (Auto) 0 (0.00-0.30) K/mcL Immature Gran # 0.21 H (0.00-0.05) K/mcl Absolute Neutrophils 5.98 (1.80-8.00) K/mcL ESR (0-15) mm/hr VBG Lactic Acid 1.2 (0.5-2.0) mmol/L Sodium 129 L (133-145) mmol/L Potassium 4.1 (3.3-5.1) mmol/L Chloride 90 L (96-108) mmol/L Carbon Dioxide 30 (22-30) mmol/L Anion Gap 9.0 (8.0-16.0) BUN 12 (6-20) mg/dL Creatinine 0.8 (0.7-1.2) mg/dL GFR Calculation 107 Glucose 393 H (70-105) mg/dL Hemoglobin A1c (4.0-6.0) % Hgb Estim Average Glucose mg/dL Calcium 8.2 L (8.6-10.4) mg/dL Total Bilirubin (0.1-1.0) mg/dL AST (<40) U/L ALT (<40) U/L Alkaline Phosphatase (39-117) U/L C-Reactive Protein (0.03-0.80) mg/dL Total Protein (5.9-8.4) gm/dL Albumin (3.2-5.2) gm/dL Globulin (2.2-3.7) gm/dL Albumin/Globulin Ratio (1.0-2.3) Triglycerides (<150) mg/dL Cholesterol (<200) mg/dL LDL Cholesterol, Calc (<100) mg/dL Non-HDL Cholesterol (<130) mg/dL HDL Cholesterol (>40) mg/dL Discharge Plan Patient/Caregiver Discharge Instructions Pt seen by DENTAL PROFESSIONAL/PA only: No Clinical Impression: Osteomyelitis Patient Disposition: Xfer As Outpt/Obs ([facility]) Condition: Serious Discharge Date/Time: 09/25/21 15:10 Discharge Location: [facility]
[2021-09-25] MEDS ORDERED: 0.9 % SODIUM CHLORIDE 500 ML ONE (09:29)
--- NOTE | 2021-09-25 09:41 | XRay Report ---
INDICATION: infection TECHNIQUE: AP and lateral ankle. AP, oblique, lateral left foot COMPARISON: Previous left foot dated 08/10/2021, 06/13/2021 FINDINGS: Severe soft tissue swelling. There is soft tissue gas consistent with infection with gas-forming organism. There is soft tissue gas extending cephalad to the level of the distal tibia. There is gas within the soft tissues of the left hindfoot and forefoot. There is left mid foot dislocation. There is complete disruption of the talonavicular joint with dorsal dislocation. Patient has undergone previous partial calcanectomy. There is gas surrounding the residual calcaneus. This may be due to an open wound although infection is possible. The remaining portion of the calcaneus is sclerotic which may be indicate chronic osteomyelitis. There is no acute cortical destruction IMPRESSION: 1. Severe diffuse soft tissue swelling with soft tissue gas. Infection with gas-forming organism suspected 2. Left midfoot dislocation 3. Previous partial left calcanectomy. Residual calcaneus is sclerotic and chronic osteomyelitis is possible. Residual calcaneus is surrounded by gas Interpreted and Authenticated by: Martínez Cat 09/25/21
[2021-09-25] MEDS ORDERED: CLINDAMYCIN 600 MG in DEXTROSE 5% IN WATER 50 ML IV ONE (09:47)
[2021-09-25 10:46] LABS: Basophils # (Auto) 0.02 K/mcL (0.00-0.30); Basophils % (Auto) 0.2 % (0.0-2.0); Eosinophils # (Auto) 0.01 K/mcL (0.00-0.70); Eosinophils % (Auto) 0.1 % (0.0-7.0); Hematocrit 28.2 % (40.1-51.0); Hemoglobin 8.5 g/dL (13.7-17.5); Lymphocytes # (Auto) 0.92 K/mcL (1.50-4.80); Lymphocytes % (Auto) 11.4 % (15.5-49.0); Mean Cell Volume 79.2 fL (80.0-100.0); Mean Corpuscular HGB Conc 30.1 g/dL (31.0-36.0); Mean Platelet Volume 9.6 fL (7.4-10.4); Monocytes # (Auto) 0.48 K/mcL (0.10-0.90); Neutrophils % (Auto) 80.9 % (38.0-78.0); Platelet Count 310 K/mcL (140-440); RBC 3.56 M/mcL (4.63-6.08); Red Cell Distribution Width 15.8 % (11.5-14.5)
[2021-09-25 11:04] LABS: ALT/SGPT < 5 U/L (<40); AST/SGOT 7 U/L (<40); Albumin 2.8 gm/dL (3.2-5.2); Albumin/Globulin Ratio 0.6 (1.0-2.3); Alkaline Phosphatase 122 U/L (39-117); Bilirubin,Total 0.4 mg/dL (0.1-1.0); Blood Urea Nitrogen 6 mg/dL (6-20); Calcium 9.1 mg/dL (8.6-10.4); Carbon Dioxide 27 mmol/L (22-30); Chloride 88 mmol/L (96-108); Globulin 4.9 gm/dL (2.2-3.7); Glomerular Filtration Rate 113; Glucose 343 mg/dL (70-105)
[2021-09-25 11:05] LABS: Erythrocyte Sedimentation Rate 80 mm/hr (0-15)
[2021-09-25] MEDS ORDERED: TRANEXAMIC ACID 1,000 MG/10 ML VIAL ONE ×2 (15:24→18:26)
[2021-09-25] MEDS ORDERED: PROPOFOL 200 MG/20 ML VIAL IV ONE (15:24)
[2021-09-25] MEDS ORDERED: METOPROLOL TARTRATE 5 MG/5 ML VIAL IV ONE (15:24)
[2021-09-25] MEDS ORDERED: SUGAMMADEX SODIUM 200 MG/2 ML VIAL IV ONE (15:24)
[2021-09-25] MEDS ORDERED: DEXAMETHASONE 10 MG/ML VIAL ONE (15:24)
[2021-09-25] MEDS ORDERED: SUCCINYLCHOLINE 20 MG/ML ML IV ONE (15:24)
[2021-09-25] MEDS ORDERED: fentaNYL 250 MCG/5 ML VIAL IV ONE (15:24)
[2021-09-25] MEDS ORDERED: ROCURONIUM 10 MG/ML ML IV ONE (15:24)
[2021-09-25] MEDS ORDERED: ONDANSETRON 4 MG/2 ML VIAL ONE (15:24)
[2021-09-25] MEDS ORDERED: KETAMINE 50 MG/ML Syringe (ANEST) IV ONE (15:24)
[2021-09-25] MEDS ORDERED: MAGNESIUM SULFATE 4 GM/100 ML BAG IV ONE (15:24)
[2021-09-25] MEDS ORDERED: GLYCOPYRROLATE 0.2 MG/ML VIAL IV ONE (15:24)
[2021-09-25] MEDS ORDERED: LIDOCAINE HCL/PF 100 MG/5 ML SYRINGE IV ONE (15:24)
[2021-09-25] MEDS ORDERED: MIDAZOLAM 5 MG/5 ML VIAL ONE (15:24)
--- NOTE | 2021-09-25 15:32 | Internal Medicine Consult Note ---
HPI Data of Consult Consult date: 09/25/21 Requesting physician: Juan Hdez Primary Care Provider: Leonid Page MD Consult Narrative Patient Information: Note initiated : 09/25/21 at 3:20 pm Service Date, if different from initiated Date: [as above] Patient: Sohail Romano 46 y/o M admitted on for Left Below Knee Amputation. Chief Complaint: [Chronic LLE diabetic non-healing foot ulcer] The patient has a history of chronic opioid use disorder on Suboxone, hypertension, and brittle diabetes complicated by neuropathy and nonhealing diabetic foot ulcer who presents to the hospital with worsening of his left lower extremity calcaneal wound. The patient is followed by podiatry and wound care in outpatient setting without improvement over the course of the last 6 months. He had previously been on parenteral antibiotics for concerns of infection with possible underlying osteomyelitis. He underwent left foot partial amputation of the calcaneus in April of this year for concerns of pathological fracture. The hospital service has been asked to help with comanagement. Orthopedic surgery plans to take the patient in for below the knee amputation. Chief complaint: Worsening of the wound Reason for consult: Medical co-mx cc:: CC: Kem Pearl PFSH PFSH All Active Problems (Updated 09/25/21 @ 15:28 by Juan Pablo Lozada MD) Peripheral neuropathy (Acute) Brittle diabetes mellitus (Acute) Opioid dependence in remission (Chronic) Bleeding from wound (Acute) Diabetic foot ulcer with osteomyelitis (Acute) Diabetic peripheral neuropathy associated with type 2 diabetes mellitus (Acute) Diabetic foot ulcer (Acute) Osteomyelitis (Acute) Right shoulder pain (Acute) Insomnia (Chronic) Nausea & vomiting (Acute) Diabetes mellitus (Chronic) Fatigue (Acute) Staph infection (Acute) Cellulitis (Acute) Encounter for monitoring of patient compliance in drug treatment program (Acute) DM w/o complication type II (Acute) Hypertension (Chronic) Gout (Chronic) Family history unremarkable (Acute) Medical History (Updated 09/25/21 @ 15:28 by Juan Pablo Lozada MD) Anxiety Chronic gout Dental caries, unspecified Diabetes mellitus Family history unremarkable Fatigue Hypertension Insomnia Low back pain syndrome Nausea & vomiting Opioid dependence, in remission Opioid dependence, uncomplicated Psoriatic arthritis Situational anxiety Staph infection Type 2 diabetes mellitus without complications Surgical History No history of previous surgery Family History Other No pertinent family history Social History marital status: single occupational status: 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[employer], 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 [place] 08/25 physical activity: walking frequency: 3-4 times per week counseling given: provider counseling alcohol intake frequency: does not drink substance use type: does not use seatbelt use: sometimes MEDS/ALLERGIES Home Medications and Allergies Home Medications Medication Instructions Recorded Confirmed Type omeprazole 20 mg tablet,delayed 20 mg PO 0700 01/12/19 09/25/21 History release zolpidem 10 mg tablet (Ambien) 10 mg PO QHS PRN Sleep 03/28/21 09/25/21 History hydrochlorothiazide 25 mg tablet 25 mg PO DAILY #90 tabs 07/11/21 09/25/21 Rx lisinopril 20 mg tablet 20 mg PO BID #180 tabs 07/11/21 09/25/21 Rx buprenorphine HCl 8 mg sublingual 8 mg sublingual QID Opioid Use 08/29/21 09/25/21 Rx tablet Disorder #120 tabs metformin 500 mg tablet,extended 1,500 mg PO HS 09/25/21 09/25/21 History release 24 hr Allergies Allergy/AdvReac Type Severity Reaction Status Date / Time No Known Drug Allergies Allergy Verified 09/25/21 08:37 EXAM Constitutional Vitals: Temp Pulse Resp BP Pulse Ox O2 Del Method 97.0 F 106 H 16 154/74 100 09/25/21 08:34 09/25/21 14:02 09/25/21 08:34 09/25/21 14:32 09/25/21 14:32 09/25/21 08:34 General appearance: average body habitus Head Head exam: Present atraumatic, normal inspection and normocephalic Eye Eye exam: Present EOMI, normal appearance and PERRL; Absent conjunctival injection ENT ENT exam: Present normal exam; Absent mucous membranes dry Neck Neck exam: Present full ROM; Absent lymphadenopathy Respiratory Respiratory exam: Present normal respiratory exam and CTAB; Absent decreased breath sounds, respiratory distress or wheezes Cardiovascular Cardiovascular exam: Present normal rate and rhythm and RRR; Absent JVD GI/Abdominal GI/Abdominal exam: Present normal bowel sounds and soft; Absent diminished bowel sounds, distended, guarding, mass, rebound or tenderness Expanded Lower Extremity Exam Hip exam: Present deformity; Absent normal inspection Upper Leg exam: Present normal inspection Neurological Exam Neurological exam: Present alert, CN II-XII intact and oriented X3 Psychiatric Psychiatric exam: Present normal affect and normal mood Skin Skin exam: Present intact and warm; Absent erythema, pallor, petechiae or rash DATA Data Completed and Pending Labs: Labs from last 24 hours 09/25/21 09/25/21 09/25/21 09:22 09:14 09:14 WBC 8.0 RBC 3.56 L Hgb 8.5 L Hct 28.2 L MCV 79.2 L MCH 23.9 L MCHC 30.1 L RDW 15.8 H Plt Count 310 MPV 9.6 Immature Gran % (Auto) 1.4 H Neut % (Auto) 80.9 H Lymph % (Auto) 11.4 L Wilson % (Auto) 6.0 Eos % (Auto) 0.1 Baso % (Auto) 0.2 Lymph # (Auto) 0.92 L Wilson # (Auto) 0.48 Eos # (Auto) 0.01 Baso # (Auto) 0.02 Immature Gran # 0.11 H Absolute Neutrophils 6.61 ESR 80 H VBG Lactic Acid 1.2 Sodium 131 L Potassium 3.0 L Chloride 88 L Carbon Dioxide 27 Anion Gap 16.0 BUN 6 Creatinine 0.7 GFR Calculation 113 Glucose 343 H Calcium 9.1 Total Bilirubin 0.4 AST 7 ALT < 5 Alkaline Phosphatase 122 H C-Reactive Protein 14.60 H Total Protein 7.7 Albumin 2.8 L Globulin 4.9 H Albumin/Globulin Ratio 0.6 L A/P Assessment and plan (1) Opioid dependence in remission: Status: Chronic (2) Diabetic foot ulcer with osteomyelitis: Status: Acute (3) Brittle diabetes mellitus: Status: Acute (4) Peripheral neuropathy: Status: Acute Narrative A/P Narrative: #LLE diabetic foot ulcer -Nonhealing chronic ulcer in the setting of long-standing DM2 with known peripheral neuropathy which indicates he has microvascular disease. He is also malnourished w/ an albumin of 2.8. -DDx: ischemic ulcer, pressure induced, venuos stasis ulcer -Investigations: patient would benefit from vascular assessment ?PVD, will o btain lipid panel and A1c -Tx: patient received empiric parenteral course of abx, planned to go to [place] -Will need close post-op monitoring as avg LOS for BKA is 6.3 days #DM2 -Hold home metformin -ISS #Chronic opoid use -Hold suboxone, will require opoid analgesics post-op possibly [employer] #HTN -Hold home lisinopril and HCTZ in the pre-op period Time Spent With Patient Time: Total time spent is greater than 50% in coordination of care (as documented) at patient's floor/unit and/or counseling patient: Total time spent with greater than 50% in coordination of care (as documented) at patient's floor/unit and/or counseling patient:: 50 - 70 minutes
[2021-09-25 16:12] LABS: Hemoglobin A1C 10.1 % Hgb (4.0-6.0)
[2021-09-25] MEDS ORDERED: BUPIVACAINE 0.5% 50 ML VIAL IJ ONE (16:15)
[2021-09-25] MEDS ORDERED: LACTATED RINGERS 250 ML IV PRN (17:42)
[2021-09-25] MEDS ORDERED: NALOXONE HCL 0.4 MG/ML VIAL IV PRN (17:42)
[2021-09-25] MEDS ORDERED: IPRATROPIUM/ALBUTEROL 3 ML AMPUL.NEB NEB PRN (17:42)
[2021-09-25] MEDS ORDERED: ACETAMINOPHEN 1,000 MG/100 ML BAG IV ONE (17:42)
[2021-09-25] MEDS ORDERED: PROMETHAZINE 25 MG/ML VIAL IV PRN (17:42)
[2021-09-25] MEDS ORDERED: ONDANSETRON 4 MG/2 ML VIAL IV PRN ×2 (17:42→17:54)
[2021-09-25] MEDS ORDERED: KETOROLAC 30 MG/ML VIAL IV PRN (17:42)
[2021-09-25] MEDS ORDERED: LACTATED RINGERS 1,000 ML IV SCH (17:45)
[2021-09-25] MEDS: fentaNYL 100 MCG/2 ML VIAL IV PRN ×8 (17:46→18:13)
[2021-09-25] MEDS: MEPERIDINE 25 MG/ML VIAL IV PRN ×2 (17:49→17:54)
[2021-09-25] MEDS ORDERED: TRANEXAMIC ACID 1,000 MG/10 ML VIAL IV ONE (17:54)
[2021-09-25] MEDS: HYDROmorphone 0.5 MG/0.5 ML SYRINGE IV PRN ×5 (17:55→18:26)
[2021-09-25] MEDS ORDERED: DEXTROSE 50% 50 ML VIAL IV PRN (18:54)
[2021-09-25] MEDS ORDERED: DEXTROSE 31 GM ORAL.SUSP PO PRN (18:54)
[2021-09-25] MEDS ORDERED: INSULIN GLARGINE, HUMAN 1 UNIT/0.01 ML SQ ONE (19:10)
[2021-09-25] MEDS: INSULIN LISPRO 1 UNIT/0.01 ML UNIT SQ SCH ×2 (19:43→22:33)
[2021-09-25] MEDS ORDERED: POTASSIUM CHLORIDE 20 MEQ TABLET PO ONE (20:38)
[2021-09-25] MEDS: LISINOPRIL 20 MG TABLET PO SCH (21:06)
[2021-09-25] MEDS: HYDROcodone/APAP 10/325MG TABLET PO PRN (21:06)
[2021-09-25] MEDS: ZOLPIDEM 5 MG TABLET PO PRN (21:07)
[2021-09-25] MEDS: ceFAZolin 1 GM VIAL IV SCH (21:08)
[2021-09-25] MEDS: 0.9 % SODIUM CHLORIDE 10 ML SYRINGE IV SCH (21:08)
[2021-09-26] MEDS: ceFAZolin 1 GM VIAL IV SCH (06:05)
[2021-09-26] MEDS: 0.9 % SODIUM CHLORIDE 10 ML SYRINGE IV SCH ×3 (06:05→20:22)
--- NOTE | 2021-09-26 07:22 | Orthopedic Progress Note ---
SUBJECTIVE Subjective Patient information: Note initiated : 09/26/21 at 7:21 am Service Date, if different from initiated Date: [] Patient: Sohail Romano 46 y/o M admitted on for Left Below Knee Amputation. Chief Complaint: [Pt is stable this morning on post operative day without any significant concerns or complaints. Patients vital signs have remained stable. Patients dressing is dry and is grossly intact from a neurovascular and motor standpoint. Patients 10 point ROS is otherwise negative. ] Constitutional Vitals: Vital Signs Temp Pulse Resp BP Pulse Ox O2 Del Method O2 Flow Rate 96.0 F L 85 16 128/76 100 1 09/26/21 03:03 09/26/21 03:03 09/26/21 03:03 09/26/21 03:03 09/26/21 03:04 09/26/21 03:04 09/26/21 03:04 Period Temp Pulse Resp BP Sys/Bello Pulse Ox O2 Del Method O2 Flow Rate Last 24 Hr 96.0 F-102.6 F 64-143 10-21 124-166/70-96 87-100 Nasal Cannula-Room Air 1-10 Intake and Output 09/25/21 09/26/21 09/26/21 21:59 05:59 13:59 Intake Total 1700 700 Output Total 600 900 450 Balance 1100 -200 -450 Weight 318 lb 8 oz Intake & Output: Intake & Output 09/25/21 09/26/21 09/26/21 21:59 05:59 13:59 Intake Total 1700 700 Output Total 600 900 450 Balance 1100 -200 -450 Weight 318 lb 8 oz Intake: IV 100 Oral 700 IV - Manual Only 1600 Output: Void Amount 250 900 450 # of times incontinent of urine 0 0 Estimated Blood Loss 350 Other: Urine Appearance Clear Clear Clear Urine Color Bright Yellow Bright Yellow Dark Yellow Urine Odor Normal Normal # Voids 0 0 # Bowel Movements 0 0 # of times incontinent of 0 0 Bowels Extremities Exam Extremities exam: Present normal inspection OBJ DATA Labs CBC & Chem 7: 09/25/21 09:14 09/25/21 09:14 Labs: Abnormal Lab Results 09/25/21 09/25/21 09/25/21 09:14 09:14 09:14 RBC 3.56 L Hgb 8.5 L Hct 28.2 L MCV 79.2 L MCH 23.9 L MCHC 30.1 L RDW 15.8 H Immature Gran % (Auto) 1.4 H Neut % (Auto) 80.9 H Lymph % (Auto) 11.4 L Lymph # (Auto) 0.92 L Immature Gran # 0.11 H ESR 80 H Sodium 131 L Potassium 3.0 L Chloride 88 L Glucose 343 H Hemoglobin A1c 10.1 H Alkaline Phosphatase 122 H C-Reactive Protein 14.60 H Albumin 2.8 L Globulin 4.9 H Albumin/Globulin Ratio 0.6 L HDL Cholesterol 23 L Meds: Medications Hydrocodone Bitart/Acetaminophen (Hydrocodone/Apap 10/325mg Tablet) 1 - 2 tab PO Q4HP PRN; Protocol PRN Reason: Per Pain Protocol Last Admin: 09/25/21 21:06 Dose: 1 tab Dextrose (Dextrose 50% 50 Ml Vial) 0 ml IV UD PRN PRN Reason: Per Sliding Scale Diagnostic Test (Pha) (Accu-Chek 1 Each Strip) 1 each FS [facility] Last Admin: 09/25/21 22:32 Dose: 1 each Glucose (Dextrose 31 Gm Oral.Susp) 15 gm PO PRN PRN PRN Reason: Hypoglycemia Insulin Human Lispro (Insulin Lispro 1 Unit/0.01 Ml Unit) 0 unit SQ [facility]; Protocol Last Admin: 09/25/21 22:33 Dose: 10 units Lisinopril (Lisinopril 20 Mg Tablet) 20 mg PO BID [facility] Last Admin: 09/25/21 21:06 Dose: 20 mg Ondansetron HCl (Ondansetron 4 Mg/2 Ml Vial) 4 mg IV Q6HP PRN; Protocol PRN Reason: Nausea And Vomiting Sodium Chloride (0.9 % Sodium Chloride 10 Ml Syringe) 10 ml IV Q8 [facility] Last Admin: 09/26/21 06:05 Dose: 10 ml Zolpidem Tartrate (Zolpidem 5 Mg Tablet) 10 mg PO HSP PRN PRN Reason: Insomnia Last Admin: 09/25/21 21:07 Dose: 10 mg A/P Narrative A/P Narrative: The patient has been educated regarding dressing care, , restrictions, and follow up appointments. The patient has had all necessary DME prescribed. The patient has remained relatively stable during their hospital course. Time Spent With Patient Time: Total time spent is greater than 50% in coordination of care (as documented) at patient's floor/unit and/or counseling patient: Total time spent with greater than 50% in coordination of care (as documented) at patient's floor/unit and/or counseling patient:: less than 15 minutes Critical Care Time: No
[2021-09-26 07:46] LABS: Basophils # (Auto) 0 K/mcL (0.00-0.30); Basophils % (Auto) 0 % (0.0-2.0); Eosinophils # (Auto) 0 K/mcL (0.00-0.70); Eosinophils % (Auto) 0 % (0.0-7.0); Hematocrit 24.1 % (40.1-51.0); Hemoglobin 7.2 g/dL (13.7-17.5); Lymphocytes # (Auto) 0.92 K/mcL (1.50-4.80); Lymphocytes % (Auto) 12.8 % (15.5-49.0); Mean Corpuscular HGB Conc 29.9 g/dL (31.0-36.0); Mean Platelet Volume 9.2 fL (7.4-10.4); Monocytes # (Auto) 0.29 K/mcL (0.10-0.90); Neutrophils % (Auto) 80.3 % (38.0-78.0); Platelet Count 335 K/mcL (140-440); RBC 3.05 M/mcL (4.63-6.08); Red Cell Distribution Width 15.9 % (11.5-14.5); WBC 7.2 K/mcL (4.5-11.0)
[2021-09-26 08:04] LABS: Blood Urea Nitrogen 12 mg/dL (6-20); Calcium 8.2 mg/dL (8.6-10.4); Carbon Dioxide 30 mmol/L (22-30); Chloride 90 mmol/L (96-108); Glomerular Filtration Rate 107; Glucose 393 mg/dL (70-105)
[2021-09-26] MEDS: LISINOPRIL 20 MG TABLET PO SCH ×2 (08:39→20:20)
[2021-09-26] MEDS: INSULIN LISPRO 1 UNIT/0.01 ML UNIT SQ SCH ×4 (08:40→20:18)
[2021-09-26] MEDS: HYDROcodone/APAP 10/325MG TABLET PO PRN ×3 (08:58→20:19)
[2021-09-26] MEDS: INSULIN GLARGINE, HUMAN 1 UNIT/0.01 ML SQ SCH (08:59)
[2021-09-26] MEDS ORDERED: 0.9 % SODIUM CHLORIDE 250 ML IV SCH (09:30)
--- NOTE | 2021-09-26 10:15 | EKG ---
[facility] Test Date: 2021-09-25 Pat Name: Sohail Romano Department: ED Room: Gender: Male [place] C[employer] Operator: SB : 1975 Requested By: Juan Hdez Order Number: [id number] Reading MD: Tin Chavez Measurements Intervals Waves Rate: 101 P: 39 MO: 205 QRS: -4 QRSD: 96 T: 59 QT: 360 QTc: 467 Interpretive Statements Sinus tachycardia Borderline prolonged MO interval Electronically Signed On 09-26-2021 10:15:39 PDT by Tin Chavez /store/[email or web address]/[id number]
--- NOTE | 2021-09-26 13:26 | Internal Med Progress Note ---
SUBJECTIVE Subjective Patient information: Note initiated : 09/26/21 at 1:23 pm Service Date, if different from initiated Date: [] Patient: Sohail Romano 46 y/o M admitted on for Left Below Knee Amputation. Chief Complaint: [LLE non-healing diabetic foot ulcer] Principal diagnosis: L calneal necrotizing infection Interval history: The patient was taken to the OR for left BKA yesterday. He was resting comfortably in bed. His blood sugars have been on the higher side and Lantus has been added. Discussed the case with the RN. Constitutional Vitals: Vital Signs Temp Pulse Resp BP Pulse Ox O2 Del Method O2 Flow Rate 97.6 F 107 H 20 116/75 94 1 09/26/21 08:00 09/26/21 08:00 09/26/21 08:00 09/26/21 08:00 09/26/21 08:00 09/26/21 08:00 09/26/21 03:04 Period Temp Pulse Resp BP Sys/Bello Pulse Ox O2 Del Method O2 Flow Rate Last 24 Hr 96.0 F-102.6 F 85-143 - 116-166/70-96 87-100 Nasal Cannula-Room Air 1-10 Intake and Output 09/25/21 09/26/21 09/26/21 21:59 05:59 13:59 Intake Total 1700 700 Output Total 600 900 450 Balance 1100 -200 -450 Weight 144.469 kg Intake & Output: Intake & Output 09/25/21 09/26/21 09/26/21 21:59 05:59 13:59 Intake Total 1700 700 Output Total 600 900 450 Balance 1100 -200 -450 Weight 144.469 kg Intake: IV 100 Oral 700 IV - Manual Only 1600 Output: Void Amount 250 900 450 # of times incontinent of urine 0 0 Estimated Blood Loss 350 Other: Urine Appearance Clear Clear Clear Urine Color Bright Yellow Bright Yellow Dark Yellow Urine Odor Normal Normal Stool Color Brown Stool Consistency Normal for Patient # Voids 0 0 # Bowel Movements 0 1 # of times incontinent of 0 0 Bowels Head Head exam: Present atraumatic and normal inspection Eye Eye exam: Present normal appearance ENT ENT exam: Present mucous membranes moist, normal exam and normal external ear exam Neck Neck exam: Present normal inspection Respiratory Respiratory exam: Present normal respiratory exam Cardiovascular Cardiovascular exam: Present normal rate and rhythm GI/Abdominal GI/Abdominal exam: Present normal bowel sounds Back Exam Back exam: Present normal inspection Neurological Exam Neurological exam: Present alert and oriented X3 Skin Skin exam: Present intact and warm OBJ DATA Labs CBC & Chem 7: 09/26/21 07:16 09/26/21 07:16 Labs: Abnormal Lab Results 09/26/21 09/26/21 09/25/21 07:16 07:16 09:14 RBC 3.05 L Hgb 7.2 L Hct 24.1 L MCV 79.0 L MCH 23.6 L MCHC 29.9 L RDW 15.9 H Immature Gran % (Auto) 2.9 H Neut % (Auto) 80.3 H Lymph % (Auto) 12.8 L Lymph # (Auto) 0.92 L Immature Gran # 0.21 H ESR Sodium 129 L Potassium Chloride 90 L Glucose 393 H Hemoglobin A1c 10.1 H Calcium 8.2 L Alkaline Phosphatase C-Reactive Protein Albumin Globulin Albumin/Globulin Ratio HDL Cholesterol 23 L 09/25/21 09/25/21 09:14 09:14 RBC 3.56 L Hgb 8.5 L Hct 28.2 L MCV 79.2 L MCH 23.9 L MCHC 30.1 L RDW 15.8 H Immature Gran % (Auto) 1.4 H Neut % (Auto) 80.9 H Lymph % (Auto) 11.4 L Lymph # (Auto) 0.92 L Immature Gran # 0.11 H ESR 80 H Sodium 131 L Potassium 3.0 L Chloride 88 L Glucose 343 H Hemoglobin A1c Calcium Alkaline Phosphatase 122 H C-Reactive Protein 14.60 H Albumin 2.8 L Globulin 4.9 H Albumin/Globulin Ratio 0.6 L HDL Cholesterol Meds: Medications Hydrocodone Bitart/Acetaminophen (Hydrocodone/Apap 10/325mg Tablet) 1 - 2 tab PO Q4HP PRN; Protocol PRN Reason: Per Pain Protocol Last Admin: 09/26/21 08:58 Dose: 1 tab Dextrose (Dextrose 50% 50 Ml Vial) 0 ml IV UD PRN PRN Reason: Per Sliding Scale Diagnostic Test (Pha) (Accu-Chek 1 Each Strip) 1 each FS ACHS [facility] Last Admin: 09/26/21 08:41 Dose: 1 each Glucose (Dextrose 31 Gm Oral.Susp) 15 gm PO PRN PRN PRN Reason: Hypoglycemia Sodium Chloride (Sodium Chloride 0.9%) 250 mls @ 20 mls/hr IV .[id number] [facility] Stop: 09/26/21 21:59 Insulin Glargine (Insulin Glargine, Human 1 Unit/0.01 Ml) 30 unit SQ DAILY [facility] Last Admin: 09/26/21 08:59 Dose: 30 units Insulin Human Lispro (Insulin Lispro 1 Unit/0.01 Ml Unit) 0 unit SQ ACHS [facility]; Protocol Last Admin: 09/26/21 12:13 Dose: 8 units Lisinopril (Lisinopril 20 Mg Tablet) 20 mg PO BID [facility] Last Admin: 09/26/21 08:39 Dose: 20 mg Ondansetron HCl (Ondansetron 4 Mg/2 Ml Vial) 4 mg IV Q6HP PRN; Protocol PRN Reason: Nausea And Vomiting Sodium Chloride (0.9 % Sodium Chloride 10 Ml Syringe) 10 ml IV Q8 [facility] Last Admin: 09/26/21 06:05 Dose: 10 ml Zolpidem Tartrate (Zolpidem 5 Mg Tablet) 10 mg PO HSP PRN PRN Reason: Insomnia Last Admin: 09/25/21 21:07 Dose: 10 mg A/P Assessment and plan (1) Opioid dependence in remission: Status: Chronic (2) Diabetic foot ulcer with osteomyelitis: Status: Acute (3) Brittle diabetes mellitus: Status: Acute (4) Peripheral neuropathy: Status: Acute Narrative A/P Narrative: #LLE diabetic foot ulcer -Nonhealing chronic ulcer in the setting of long-standing DM2 with known peripheral neuropathy which indicates he has microvascular disease. He is also malnourished w/ an albumin of 2.8. -DDx: ischemic ulcer, pressure induced, venuos stasis ulcer -Investigations: patient would benefit from vascular assessment ?PVD, will obtain lipid panel and A1c -Tx: patient received empiric parenteral course of abx, planned to go to OR -Wound care per ortho #DM2 -Hold home metformin -ISS, added lantus 20u qAM #Chronic anemia -Unclear etiology of his chronic anemia, likely 2/2 anemia of chronic disease -Investigations: Hb 8.5, will f/u with CBC in AM-> 7.2, will transfuse 1u pRBC -Would rec outpatient w/u for microcytic anemia #Chronic opoid use -Hold suboxone, continue oral/IV narcotic analgesia #HTN -Hold home lisinopril and HCTZ in the pre-op period Time Spent With Patient Time: Total time spent is greater than 50% in coordination of care (as documented) at patient's floor/unit and/or counseling patient: Total time spent with greater than 50% in coordination of care (as documented) at patient's floor/unit and/or counseling patient:: 25 - 35 minutes
[2021-09-26] MEDS: ZOLPIDEM 5 MG TABLET PO PRN (20:19)
[2021-09-27] MEDS: 0.9 % SODIUM CHLORIDE 10 ML SYRINGE IV SCH ×2 (05:09→14:00)
--- NOTE | 2021-09-27 07:24 | Operative Note ---
DATE OF OPERATION: 09/25/2021 PREOPERATIVE DIAGNOSIS: Left septic osteomyelitis, left foot with open wound greater than 8 x 8 cm with bone falling out of his foot. POSTOPERATIVE DIAGNOSIS: Left septic osteomyelitis, left foot with open wound greater than 8 x 8 cm with bone falling out of his foot. PROCEDURE: Left below-knee amputation. SURGEON: Kem Pearl M.D. HOSPITALIST PHYSICIAN: Charlie Rojas PA-C. This provider's expertise and technical skill were required throughout the case. The PA assisted with preoperative coordination, intraoperative retraction, wound closure, and dressing and splint application, as well as postoperative documentation and care coordination. ANESTHESIA: General LMA anesthesia. COMPLICATIONS: None. ESTIMATED BLOOD LOSS: About 300 mL. TOURNIQUET TIME: Approximately 19 minutes. DESCRIPTION OF PROCEDURE: The patient was brought to the operating room, put to sleep with general LMA anesthesia. Once asleep, the patient had the left leg sterilely prepped and draped in the usual sterile fashion. Once this was done, we then proceeded with a below-knee amputation with a fishmouth technique. This was then incised cutting through the muscle layer and then cutting the bone of the fibula and tibia. The fibula was cut 2 cm proximal to the tibia. A secondary cut was then made because of the skin closure problems to loosen up the skin edges. The muscle layer, the tenodesis of the gastroc was attached to the bone for strength reasons and then we closed the fascial layer with #1 Stratafix. The skin was closed with Stratafix and adhesive closure and Prolene. The patient tolerated this well. We irrigated thoroughly and placed jessy over the skin. There were no complications. Once completed, we placed the patient into a cast postoperatively to help with swelling and bleeding. Tourniquet was deflated at 19 minutes. All the major vessels were identified and tied and vessel clips were placed. The nerves were cut short of the end of the bone, both the tibialis posteriorly and the peroneal nerve. RBH:anil Job ID: [id number] Doc ID: [id number] Kem Pearl MD
[2021-09-27] MEDS: INSULIN LISPRO 1 UNIT/0.01 ML UNIT SQ SCH ×2 (07:53→11:23)
[2021-09-27 08:28] LABS: Basophils # (Auto) 0.01 K/mcL (0.00-0.30); Basophils % (Auto) 0.1 % (0.0-2.0); Eosinophils # (Auto) 0.01 K/mcL (0.00-0.70); Eosinophils % (Auto) 0.1 % (0.0-7.0); Hematocrit 24.4 % (40.1-51.0); Hemoglobin 7.4 g/dL (13.7-17.5); Lymphocytes # (Auto) 1.44 K/mcL (1.50-4.80); Lymphocytes % (Auto) 18.6 % (15.5-49.0); Mean Cell Volume 79.7 fL (80.0-100.0); Mean Corpuscular HGB Conc 30.3 g/dL (31.0-36.0); Monocytes # (Auto) 0.45 K/mcL (0.10-0.90); Monocytes % (Auto) 5.8 % (1.0-12.0); Platelet Count 295 K/mcL (140-440); RBC 3.06 M/mcL (4.63-6.08); WBC 7.7 K/mcL (4.5-11.0)
[2021-09-27] MEDS: LISINOPRIL 20 MG TABLET PO SCH (09:45)
[2021-09-27] MEDS: INSULIN GLARGINE, HUMAN 1 UNIT/0.01 ML SQ SCH (09:45)
[2021-09-27] MEDS: HYDROcodone/APAP 10/325MG TABLET PO PRN (09:46)
--- NOTE | 2021-09-27 11:39 | Internal Med Progress Note ---
SUBJECTIVE Subjective Patient information: Note initiated : 09/27/21 at 11:37 am Service Date, if different from initiated Date: [] Patient: Soahil Romano 46 y/o M admitted on 09/26/21 for Left Below Knee Amputation. Chief Complaint: [Non-healing diabetic foot ulcer] Principal diagnosis: L calneal necrotizing infection Interval history: The patient is in good spirits. He states that he is feeling more energetic after the blood transfusion yesterday. He has no other active complaints or concerns. He states that his pain is fairly well controlled. Constitutional Vitals: Vital Signs Temp Pulse Resp BP Pulse Ox O2 Del Method O2 Flow Rate 99.0 F 104 H 20 142/83 95 1 09/27/21 08:00 09/27/21 08:00 09/27/21 08:00 09/27/21 08:00 09/27/21 08:00 09/27/21 08:00 09/26/21 03:04 Period Temp Pulse Resp BP Sys/Bello Pulse Ox O2 Del Method O2 Flow Rate Last 24 Hr 97.4 F-99.0 F 102-111 18-20 127-157/73-85 92-98 Room Air-Room Air Intake and Output 09/26/21 09/27/21 09/27/21 21:59 05:59 13:59 Intake Total 800 450 300 Output Total 1070 1025 475 Balance -270 -575 -175 Weight 144.197 kg Intake & Output: Intake & Output 09/26/21 09/27/21 09/27/21 21:59 05:59 13:59 Intake Total 800 450 300 Output Total 1070 1025 475 Balance -270 -575 -175 Weight 144.197 kg Intake: IV 100 Sodium Chloride 0.9% 250 ml @ 100 20 mls/hr IV .[id number] [facility] Rx#: [id number] Oral 800 350 300 Output: Void Amount 1070 1025 475 Other: Meal Breakfast Percent of Meal Consumed 25% Feeding Ability Independent Urine Appearance Clear Clear Clear Urine Color Dark Yellow Bright Yellow Dark Yellow Urine Odor Normal Stool Size Small Stool Color Brown Stool Consistency Soft Head Head exam: Present atraumatic and normal inspection Eye Eye exam: Present normal appearance ENT ENT exam: Present mucous membranes moist, normal exam and normal external ear exam Neck Neck exam: Present normal inspection Respiratory Respiratory exam: Present normal respiratory exam Cardiovascular Cardiovascular exam: Present normal rate and rhythm GI/Abdominal GI/Abdominal exam: Present normal bowel sounds Back Exam Back exam: Present normal inspection Neurological Exam Neurological exam: Present alert and oriented X3 Skin Skin exam: Present intact and warm OBJ DATA Labs CBC & Chem 7: 09/27/21 07:52 09/26/21 07:16 Labs: Abnormal Lab Results 09/27/21 09/26/21 09/26/21 07:52 07:16 07:16 RBC 3.06 L 3.05 L Hgb 7.4 L 7.2 L Hct 24.4 L 24.1 L MCV 79.7 L 79.0 L MCH 24.2 L 23.6 L MCHC 30.3 L 29.9 L RDW 16.0 H 15.9 H Immature Gran % (Auto) 4.4 H 2.9 H Neut % (Auto) 80.3 H Lymph % (Auto) 12.8 L Lymph # (Auto) 1.44 L 0.92 L Immature Gran # 0.34 H 0.21 H ESR Sodium 129 L Potassium Chloride 90 L Glucose 393 H Hemoglobin A1c Calcium 8.2 L Alkaline Phosphatase C-Reactive Protein Albumin Globulin Albumin/Globulin Ratio HDL Cholesterol 09/25/21 09/25/21 09/25/21 09:14 09:14 09:14 RBC 3.56 L Hgb 8.5 L Hct 28.2 L MCV 79.2 L MCH 23.9 L MCHC 30.1 L RDW 15.8 H Immature Gran % (Auto) 1.4 H Neut % (Auto) 80.9 H Lymph % (Auto) 11.4 L Lymph # (Auto) 0.92 L Immature Gran # 0.11 H ESR 80 H Sodium 131 L Potassium 3.0 L Chloride 88 L Glucose 343 H Hemoglobin A1c 10.1 H Calcium Alkaline Phosphatase 122 H C-Reactive Protein 14.60 H Albumin 2.8 L Globulin 4.9 H Albumin/Globulin Ratio 0.6 L HDL Cholesterol 23 L Meds: Medications Hydrocodone Bitart/Acetaminophen (Hydrocodone/Apap 10/325mg Tablet) 1 - 2 tab PO Q4HP PRN; Protocol PRN Reason: Per Pain Protocol Last Admin: 09/27/21 09:46 Dose: 1 tab Dextrose (Dextrose 50% 50 Ml Vial) 0 ml IV UD PRN PRN Reason: Per Sliding Scale Diagnostic Test (Pha) (Accu-Chek 1 Each Strip) 1 each FS ACHS [facility] Last Admin: 09/27/21 11:23 Dose: 1 each Glucose (Dextrose 31 Gm Oral.Susp) 15 gm PO PRN PRN PRN Reason: Hypoglycemia Insulin Glargine (Insulin Glargine, Human 1 Unit/0.01 Ml) 50 unit SQ DAILY [facility] Insulin Human Lispro (Insulin Lispro 1 Unit/0.01 Ml Unit) 0 unit SQ ACHS [facility]; Protocol Last Admin: 09/27/21 11:23 Dose: 6 units Insulin Human Lispro (Insulin Lispro 1 Unit/0.01 Ml Unit) 10 unit SQ TID [facility] Lisinopril (Lisinopril 20 Mg Tablet) 20 mg PO BID [facility] Last Admin: 09/27/21 09:45 Dose: 20 mg Ondansetron HCl (Ondansetron 4 Mg/2 Ml Vial) 4 mg IV Q6HP PRN; Protocol PRN Reason: Nausea And Vomiting Sodium Chloride (0.9 % Sodium Chloride 10 Ml Syringe) 10 ml IV Q8 [facility] Last Admin: 09/27/21 05:09 Dose: Not Given Zolpidem Tartrate (Zolpidem 5 Mg Tablet) 10 mg PO HSP PRN PRN Reason: Insomnia Last Admin: 09/26/21 20:19 Dose: 10 mg A/P Assessment and plan (1) Opioid dependence in remission: Status: Chronic (2) Diabetic foot ulcer with osteomyelitis: Status: Acute (3) Brittle diabetes mellitus: Status: Acute (4) Peripheral neuropathy: Status: Acute Narrative A/P Narrative: #LLE diabetic foot ulcer -Nonhealing chronic ulcer in the setting of long-standing DM2 with known peripheral neuropathy which indicates he has microvascular disease. He is also malnourished w/ an albumin of 2.8. -DDx: ischemic ulcer, pressure induced, venuos stasis ulcer -Investigations: patient would benefit from vascular assessment ?PVD, will obtain lipid panel and A1c -Tx: patient received empiric parenteral course of abx, s/p BKA POD#2 -Wound care per ortho #DM2 -Hold home metformin -ISS, increased lantus 50u qAM, humalog 10u TID #Chronic anemia -Unclear etiology of his chronic anemia, likely 2/2 anemia of chronic disease -Investigations: Hb 8.5, will f/u with CBC in AM-> 7.2 sp 1u pRBC 09/26 with minimal improvement, 7.4 today. Would rec repeat H/H this afternoon or tmr AM. -Would rec outpatient w/u for microcytic anemia #Chronic opoid use -Hold suboxone, continue oral/IV narcotic analgesia #HTN -Hold home lisinopril and HCTZ in the sobia-op period Time Spent With Patient Time: Total time spent is greater than 50% in coordination of care (as documented) at patient's floor/unit and/or counseling patient: Total time spent with greater than 50% in coordination of care (as documented) at patient's floor/unit and/or counseling patient:: 25 - 35 minutes
[2021-09-27] MEDS ORDERED: INSULIN LISPRO 1 UNIT/0.01 ML UNIT SQ SCH (15:00)
--- NOTE | 2021-09-27 16:59 | Brief Operative Note ---
Brief Operative Note Date of procedure: 09/25/21 Pre-op diagnosis: left septic foot with osteomyelitits Post-op diagnosis: same Procedure: left septic foot with osteomyelitis Grafts/Implants: Yes Anesthesia: GETA Complications: none Surgeon: Kem Pearl Boat Rigger: Charlie Rojas Estimated blood loss (cc): 150 Tourniquet Time (Minutes): 19 Specimens Removed/Pathology: none sent Condition: stable Disposition: PACU
--- NOTE | 2021-09-27 20:08 | Consultation ---
DATE OF CONSULTATION: 09/27/2021 PREOPERATIVE DIAGNOSIS: Left foot osteomyelitis with failed conservative management of an osteomyelitis of the calcaneus with loss of bone. POSTCONSULTATION DIAGNOSIS: Left foot osteomyelitis with failed conservative management of an osteomyelitis of the calcaneus with loss of bone. PRESENTING COMPLAINT: Left wound, nonhealing ulcer of his foot, treated over six months with wound care and Dr. Ortiz. 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 This has been ongoing with the ulcer since March of this year. PAST MEDICAL HISTORY: Type 2 diabetes. MEDICATIONS: Include, omeprazole, zolpidem, metformin, hydrochlorothiazide, lisinopril. ALLERGIES: NO KNOWN DRUG ALLERGIES. REVIEW OF SYSTEMS: No chest pain or shortness of breath. He does note decreased sensation distally and peripheral neuropathy. Other health problems are quite extensive but all resulting from his diabetes. He also has some anxiety, hyponatremia. PAST SURGICAL HISTORY: He has had prior debridement of the left foot. SOCIAL HISTORY: He was a former smoker, is not currently smoking. Alcohol, notes that he does not actively drink but has in the past. PHYSICAL EXAMINATION: General: Very pleasant male who is alert, cooperative, in good spirits, not septic. Lungs: Clear to auscultation. Cardiovascular: Regular rate and rhythm. No murmurs, rubs, or gallops. Abdomen: Obese. His lower extremity demonstrates a deformed foot with an ulcer measuring 8 cm x 8 cm and tunneling up around the calcaneus and into the talus. Severe osteomyelitis is noted. Diminished sensation noted. Good capillary refill, however, is excellent. Peripheral edema is 3+. LABORATORY DATA: Show a white count of 7.2, platelet count of 335,000. He does have a sodium of 127, which is abnormal, chloride of 90. Also, the other abnormal lab. Sugar level 393, his ____ slight shift with PMNs of 81%. ESR 80. DIAGNOSIS: Left foot with septic arthritis with osteomyelitis, nonhealing very large wound. We talked about his treatment options. He has failed conservative care. Recommend below-knee amputation. Understand the risks and benefits of such a procedure. This is irreversible, but at this point, I think the leg or foot is trying to take his life and that is imminent that this will have to be removed at some point. This level is below-knee amputation. RBH:woo Job ID: [id number] Doc ID: [id number] Kem Pearl MD
[2021-09-28] MEDS ORDERED: INSULIN GLARGINE, HUMAN 1 UNIT/0.01 ML SQ SCH (09:00)
== END 2021-09-27 14:00 | disposition home or self-care (01) | DRG 240 ==
LOC: ED 08:29 → SUR 15:10 → MEDSUR 18:35
PROVIDERS: ADMIT Orthopaedic Surgery; ATTEND Orthopaedic Surgery